=== PATIENT | male | born 1935 | race Caucasian/White ===

== ENCOUNTER 2019-09-14 15:23 | Emergency (ER) | payer MEDICARE, SELFPAY ==
[2019-09-14 15:24] VITALS: BP 148/63; PULSE 100; RESP 18; TEMP 36.4; O2SAT 100
[2019-09-14 15:35] VITALS: BP 135/89; PULSE 98; RESP 16; TEMP 36.7; O2SAT 100
--- NOTE | 2019-09-14 15:59 | ED.WOUNDLAC ---
HPI - Wound/Laceration General Chief Complaint: Urogenital-Male Stated Complaint: Punctured scrotum Time Seen by Provider: 09/14/19 15:30 Source: patient Mode of arrival: ambulatory Limitations: no limitations History of Present Illness HPI narrative: Patient presents with chief complaint of swelling to his scrotum that he noticed while cleaning himself prior to arrival. Patient states that he takes Xarelto so he became concerned when he saw the bleeding. Patient states that he cleaned the area and applied cotton and was able to stop the bleeding with minimal pressure. Patient does not have any active bleeding at this time. Patient denies any other symptoms or concerns. Related Data Allergies Allergy/AdvReac Type Severity Reaction Status Date / Time No Known Allergies Allergy Unverified 02/05/18 09:56 Review of Systems Review of Systems: Narrative: CONSTITUTIONAL: Denies fever, chills, or sweats. EYES: Denies visual changes, redness, or discharge. ENT: Denies rhinorrhea, congestion, sore throat, or otalgia. CARDIOVASCULAR: Denies chest pain, palpitations, or edema. RESPIRATORY: Denies cough or dyspnea. GASTROINTESTINAL: Denies abdominal pain, nausea, vomiting, or diarrhea. GENITOURINARY: Denies dysuria or hematuria. SKIN: Reports area of bleeding denies rash or itching. MUSCULOSKELETAL: Denies back pain, joint pain, or myalgia. NEUROLOGIC: Denies headache, numbness, dizziness, or weakness. PSYCHIATRIC: Denies anxiety or depression. Exam Narrative: Exam Narrative: GENERAL: Well-appearing, well-nourished, and in no acute distress. HEAD: Normocephalic, atraumatic. EYES: PERRLA and EOMI. ENT: Nares clear, no rhinorrhea or epistaxis. Mucous membranes moist. Oropharynx without tonsillar hypertrophy exudate or other lesions. Bilateral TMs pearly whatley nonbulging NECK: Supple. No adenopathy or masses. CHEST: Clear to auscultation. No respiratory distress. No wheezes rales or rhonchi HEART: Regular rate and rhythm. Normal peripheral pulses. ABDOMEN: Soft, nontender, nondistended, normal active bowel sounds. EXTREMITIES: Normal range of motion. No edema. SKIN: There is follicle with scab noted to anterior aspect of scrotum. No sign of laceration or deep puncture wound. There is no active bleeding to the area at this time. There is no signs of cellulitis or infection. Warm, dry, no rash. NEURO: No focal deficits. Alert and oriented x3. PSYCH: Normal mood and affect. Course Vital Signs Vital signs: Vital Signs Temperature 97.5 F L 09/14/19 15:24 Pulse Rate 100 09/14/19 15:24 Respiratory Rate 18 09/14/19 15:24 Blood Pressure 148/63 H 09/14/19 15:24 Pulse Oximetry 100 09/14/19 15:24 Temperature 98.0 F 09/14/19 15:35 Pulse Rate 98 09/14/19 15:35 Respiratory Rate 16 09/14/19 15:35 Blood Pressure 135/89 09/14/19 15:35 Pulse Oximetry 100 09/14/19 15:35 MDM - Wound/Laceration MDM Narrative Medical decision making narrative: Discussed with the patient that there are no signs of active bleeding. There is a scab over the follicle that was the source of bleeding. Discussed with patient being arsah with the area so that bleeding does not restart. Told the patient to return to the emergency department if he has any profuse bleeding. Denies Differential Diagnosis Differential diagnosis: Likely laceration, abscess, abrasion and avulsion of skin Discharge Plan Discharge Clinical Impression: Superficial injury of scrotum without infection Qualifiers: Encounter type: initial encounter Qualified Code(s): S30.94XA - Unspecified superficial injury of scrotum and testes, initial encounter Patient Disposition: Home, Self-Care Condition: Improved Instructions: Antibiotic Form Additional Instructions: Avoid removing scab off of follicle so that bleeding does not restart. Avoid friction or irritation to the area. Return to emergency department if you have restarted profuse bleeding. Follow-
[2019-09-14 16:21] VITALS: BP 105/58; PULSE 92; RESP 16; O2SAT 99
== END 2019-09-14 16:22 | disposition home or self-care (01) ==
PROVIDERS: Emergency Provider Emergency Medicine; PCP Family Medicine Adolescent Medicine
DX: S30.94XA Unspecified superficial injury of scrotum and testes, initial encounter (principal); X58.XXXA Exposure to other specified factors, initial encounter; Z79.01 Long term (current) use of anticoagulants
CPT/HCPCS: 99281

== ENCOUNTER 2019-09-22 15:16 | Outpatient (CLI) | payer MEDICARE, SELFPAY ==
[2019-09-22 16:14] LABS: Hemoglobin A1C 7.1 % (<5.7)
== END 2019-09-22 15:17 | disposition home or self-care (01) ==
LOC: ANHLAB 15:20
PROVIDERS: PCP Family Medicine Adolescent Medicine; Visit Provider Family Medicine Adolescent Medicine
DX: R73.01 Impaired fasting glucose (principal)
CPT/HCPCS: 36415; 83036

== ENCOUNTER 2020-04-12 15:02 | Outpatient (CLI) | payer MEDICARE, SELFPAY ==
[2020-04-12 15:36] LABS: Alanine Aminotransferase 24 U/L (4-50); Albumin Level 4.1 g/dL (3.5-5.1); Alkaline Phosphatase 76 U/L (38-126); Anion Gap 5 mmol/L (8-16); Aspartate Amino Transferase 28 U/L (17-59); Bilirubin,Total 0.8 mg/dL (0.2-1.3); Blood Urea Nitrogen 13 mg/dL (9-20); Calcium 8.9 mg/dL (8.4-10.2); Carbon Dioxide 27 mmol/L (22-30); Chloride 103 mmol/L (98-107); Cholesterol 110 mg/dL (0-200); Estimated Glomerular Filt Rate > 60; Glucose 126 mg/dL (75-110); HDL Direct 37 mg/dL; Potassium 4.5 mmol/L (3.4-5.0); Sodium 135 mmol/L (137-145); Triglycerides 109 mg/dL (<150)
[2020-04-12 15:40] LABS: Hemoglobin A1C 6.1 % (<5.7)
[2020-04-12 15:47] LABS: LDL Cholesterol Direct 48 mg/dL
== END 2020-04-12 15:03 | disposition home or self-care (01) ==
PROVIDERS: PCP Family Medicine Adolescent Medicine; Visit Provider Family Medicine Adolescent Medicine
DX: E03.9 Hypothyroidism, unspecified (principal); E11.9 Type 2 diabetes mellitus without complications; E78.00 Pure hypercholesterolemia, unspecified
CPT/HCPCS: 36415; 80053; 80061; 83036; 84443

== ENCOUNTER 2020-06-27 15:09 | Outpatient (CLI) | payer MEDICARE, SELFPAY ==
[2020-06-27 16:50] LABS: Prostate Specific Antigen < 0.1 ng/mL (< OR = 4.0)
== END 2020-06-27 15:10 | disposition home or self-care (01) ==
LOC: ANHLAB 15:12
PROVIDERS: PCP Family Medicine Adolescent Medicine; Visit Provider Urology
DX: Z85.46 Personal history of malignant neoplasm of prostate (principal)
CPT/HCPCS: 36415; 84153

== ENCOUNTER 2020-10-30 08:13 | Outpatient (CLI) | payer MEDICARE, SELFPAY ==
--- NOTE | ~2020-10-30 | US_ITS ---
EXAMINATION: US art doppler w press LE BI DATE: 10/30/2020 09:23 INDICATION: Claudication TECHNIQUE: Segmental pressures and plethysmographic and Doppler waveforms of the brachial and lower e xtremity arteries were obtained. COMPARISON: None. FINDINGS: Right and left brachial artery pressures of 130 mm Hg and 132 mm Hg, respectively, are concordant (no rmal difference <= 30 mmHg). The right high thigh pressure index is 1.35 (normal > 1.2). The left hig h pressure index was unable to be obtained due to inability to occlude vessels in the left thigh. The right ankle-brachial index (KIERA) is 0.73 (normal >= 0.9-1). The right great toe-brachial index (T BI) is 0.49 (normal >= 0.6-0.8). The right lower extremity segmental pressure gradients are increased between the right jqmoj-coc-ryez popliteal artery and the right dorsalis pedis and posterior tibial arteries at the ankle. There is also increased pressure gradient between the right dorsalis pedis and posterior tibial arteries and the contralateral left dorsalis pedis and posterior tibial arteries (n ormal gradients <= 20-30 mmHg between adjacent levels on the same leg or the same levels on the two l egs). Arterial waveforms are biphasic with brisk systolic upstrokes throughout. The left KIERA is 1.06. The left TBI is 0.85. The left lower extremity segmental pressure gradients are normal. Arterial waveforms are biphasic with brisk systolic upstrokes throughout. IMPRESSION: 1. Arterial occlusive disease to the right lower limb with moderately decreased right KIERA and TBI and with increased pressure gradient in the right calf. 2. Normal left KIERA and TBI. Reviewed, dictated and finalized at location A.
== END 2020-10-30 08:14 | disposition home or self-care (01) ==
PROVIDERS: PCP Family Medicine Adolescent Medicine; Visit Provider Internal Medicine Cardiovascular Disease
DX: I25.10 Atherosclerotic heart disease of native coronary artery without angina pectoris (principal); I73.9 Peripheral vascular disease, unspecified
CPT/HCPCS: 93923

== ENCOUNTER 2020-11-23 11:48 | Emergency (ER) | payer MEDICARE, SELFPAY ==
[2020-11-23] VITALS (7 sets, daily range): BP systolic 117–134; BP diastolic 41–74; PULSE 77–100; RESP 13–20; TEMP 36.8; O2SAT 97–100
--- NOTE | ~2020-11-23 | XR_ITS ---
EXAMINATION: XR chest 2V EXAM DATE: 11/23/2020 12:24 INDICATION: Heart palpitations and chest tightness. TECHNIQUE: Frontal and lateral projections of the chest obtained and reviewed. Comparison is made to prior examination from 04/19/2017. FINDINGS: No confluent consolidation, pneumothorax or pleural effusion suspected. Sternotomy wires are present without findings to suggest sternal dehiscence. The lungs are hyperinflated which can be seen with chronic obstructive pulmonary disease (a clinical diagnosis of functional impairment), but is not diagnostic of it. Cardiomediastinal silhouette is normal. There is aortic arteriosclerosis. IMPRESSION: 1. No acute cardiopulmonary findings. 2. Chronic hyperinflation. Reviewed, dictated and finalized at location A.
--- NOTE | 2020-11-23 11:56 | ECG_ITS ---
Measurements Intervals [place] Rate: 93 P: 36 CA: 188 QRS: -39 QRSD: 153 T: 118 QT: 388 QTc: 483 Interpretive Statements SINUS RHYTHM POSSIBLE LEFT ATRIAL ENLARGEMENT LEFT AXIS DEVIATION LEFT BUNDLE BRANCH BLOCK ABNORMAL ECG Electronically Signed On 11-23-2020 12:00:16 CDT by Sammy Frank D.O.
[2020-11-23 12:11] LABS: Basophils Percent Auto 0.5 % (0.2-1.2); Eosinophils Absolute Auto 0.1 K/mm3 (0-0.3); Eosinophils Percent Auto 1.3 % (0-4.4); Hematocrit 44.9 % (42.0-52.0); Hemoglobin 14.9 g/dL (14.0-18.0); Immature Granulocyte Absolute 0.02 K/mm3 (0.00-0.031); Immature Granulocyte Percent A 0.2 % (0-0.5); Lymphocytes Absolute Auto 1.27 K/mm3 (0.9-3.2); Lymphocytes Percent Auto 15.1 % (18.3-44.2); Mean Corpuscular HGB Conc 33.2 g/dl (32-36); Mean Corpuscular Volume 87.4 fl (80-100); Mean Platelet Volume 10.3 fl (7.4-10.4); Monocytes Absolute Auto 0.6 K/mm3 (0.1-0.6); Monocytes Percent Auto 6.5 % (2.6-8.5); Neutrophils Absolute Auto 6.4 K/mm3 (1.3-6.7); Neutrophils Percent Auto 76.4 % (45.5-73.1); Platelet Count Result 198 k/mm3 (150-375); Red Blood Count 5.14 M/mm3 (4.6-6.20); Red Cell Distribution Width 13.4 % (11.5-14.5); White Blood Count 8.4 K/mm3 (4.5-10.0)
[2020-11-23 12:20] LABS: Anion Gap 7 mmol/L (8-16); Blood Urea Nitrogen 13 mg/dL (9-20); Calcium 9.1 mg/dL (8.4-10.2); Carbon Dioxide 27 mmol/L (22-30); Chloride 104 mmol/L (98-107); Estimated CRCL calculation 75 ml/min; Estimated Glomerular Filt Rate > 60; Glucose 151 mg/dL (75-110); INR 1.3; Potassium 4.3 mmol/L (3.4-5.0); Sodium 138 mmol/L (137-145)
[2020-11-23 12:32] LABS: Troponin I < 0.012 ng/mL (0.000-0.034)
--- NOTE | 2020-11-23 13:16 | ED.DIZZY ---
HPI - Dizziness General Chief Complaint: Dizziness Stated Complaint: heart palpitations Time Seen by Provider: 11/23/20 13:16 History of Present Illness HPI Narrative: 85 yo male w/ h/o CAD, DM presents to the ED for palpitations. He reports that he was taking his pulse this morning when he noted PVCs and occasional skipped beats. He was concerned because they seemed to be getting more frequent. He says that he had a strange sensation in his chest when they would happene and may have felt slightly light headed for a few seconds. No CP, syncope, SOB. Related Data Home Medications Medication Instructions Recorded Confirmed atorvastatin 11/23/20 ergocalciferol (vitamin D2) 11/23/20 ergocalciferol (vitamin D2) 11/23/20 isosorbide mononitrate mg PO 11/23/20 levothyroxine 11/23/20 metformin mg PO 11/23/20 rivaroxaban [Xarelto] mg 11/23/20 Allergies Allergy/AdvReac Type Severity Reaction Status Date / Time No Known Allergies Allergy Unverified 11/23/20 12:31 Review of Systems Review of Systems: All systems reviewed & are unremarkable except as noted in HPI and below Constitutional: Constitutional: Denies fever(s) and Denies weakness Eyes: Eyes: Reports no additional eye complaints ENT: Reports system reviewed and no additional complaints, except as documented Cardiovascular: Cardiovascular: Reports as per HPI Respiratory: Respiratory: Reports as per HPI Gastrointestinal: Gastrointestinal: Denies nausea Musculoskeletal: Musculoskeletal: Denies back pain Neurologic: Reports as per HPI [facility] Past Medical History Medical History (Updated 12/06/20 @ 10:45 by Oswaldo Hamilton MD) CAD (coronary artery disease) Diabetes mellitus Social History Social History (Updated 12/06/20 @ 10:45 by Oswaldo Hamilton MD) Substance use: never Living arrangements: with family Gender identity (if verbalized by the patient): Male Exam Const: General: healthy appearing, no acute distress and alert Orientation/consciousness: patient oriented x3 HENMT: Head: normal to inspection Neck: Neck: normal visual inspection Chest: Chest palpation & inspection: normal inspection of the chest Resp: Effort & Inspection: normal respiratory effort Auscultation: clear to auscultation bilaterally Cardio: Rate: regular rate Rhythm: regular rhythm GI: Inspection: non-distended Skin: General skin exam: normal color Neuro: General: patient oriented x3, no focal motor deficits and CN's II-XI intact bilaterally Speech: normal speech Gait exam (Neuro): Normal gait present Extrem: General: normal to inspection Course Vital Signs Vital signs: Vital Signs Temperature 36.8 C 11/23/20 11:56 Pulse Rate 91 11/23/20 11:56 Respiratory Rate 20 11/23/20 11:56 Blood Pressure 117/61 11/23/20 11:56 Pulse Oximetry 99 11/23/20 11:56 Temperature 36.8 C 11/23/20 11:56 Pulse Rate 77 11/23/20 14:20 Respiratory Rate 16 11/23/20 14:20 Blood Pressure 134/74 11/23/20 14:20 Pulse Oximetry 97 11/23/20 14:20 MDM - Dizziness MDM Narrative Medical decision making narrative: Occasional PVCs on telemetry. Case discussed with Dr. Rodriguez. Nothing to do. Patient can follow-up sooner if he is concerned, otherwise he can keep previously scheduled appointment. Medical Records Attestation: I reviewed the patient's medical records. Lab Data Attestation: I reviewed the patient's lab results. Result diagrams: 11/23/20 12:04 11/23/20 12:04 Labs: Lab Results 11/23/20 11/23/20 11/23/20 Range/Units 12:04 12:04 12:04 WBC 8.4 (4.5-10.0) K/mm3 RBC 5.14 (4.6-6.20) M/mm3 Hgb 14.9 (14.0-18.0) g/dL Hct 44.9 (42.0-52.0) % MCV 87.4 (80-100) fl MCH 29.0 (26-34) pg MCHC 33.2 (32-36) g/dl RDW 13.4 (11.5-14.5) % Plt Count 198 (150-375) k/mm3 MPV 10.3 (7.4-10.4) fl Immature Gran % (Auto) 0.2 (0-0.5) % Neut % (Auto
== END 2020-11-23 14:22 | disposition home or self-care (01) ==
PROVIDERS: General Practice; Emergency Provider Emergency Medicine; PCP Family Medicine Adolescent Medicine
DX: I49.3 Ventricular premature depolarization (principal); I25.10 Atherosclerotic heart disease of native coronary artery without angina pectoris; E11.9 Type 2 diabetes mellitus without complications; Z79.01 Long term (current) use of anticoagulants; Z79.84 Long term (current) use of oral hypoglycemic drugs; I44.7 Left bundle-branch block, unspecified; R94.31 Abnormal electrocardiogram [ECG] [EKG]
CPT/HCPCS: 36415; 71046; 80048; 84484; 85025; 85610; 85730; 93005; 99284

== ENCOUNTER 2020-12-19 10:14 | Outpatient (CLI) | payer MEDICARE, SELFPAY ==
--- NOTE | ~2020-12-19 | CT_ITS ---
EXAMINATION: CTA abd aorta runoff DATE: 12/19/2020 11:00 INDICATION: Peripheral arterial disease. Claudication. TECHNIQUE: Computed tomographic angiography (CTA) of the abdominal, pelvis, and both lower extremitie s was performed with 150 mL Omnipaque-350 intravenous contrast. Automated exposure control and iterat peggy reconstruction technique were employed. The dose-length product was 1674.97 mGy-cm. Maximum inten sity projection 3D-reconstructions of the arteries were created by the technologist on a separate wor kstation. COMPARISON: None. FINDINGS: ABDOMINAL AORTA AND ITS BRANCHES: Abdominal aorta is normal in caliber. There is mild stenosis of celiac axis. There is no significant stenosis of superior mesenteric artery or the renal arteries. There is mild stenosis of inferior mese nteric artery. PELVIC VASCULATURE: There is no significant stenosis of the common iliac arteries, external iliac arteries, or right inte rnal iliac artery. There is chronic total occlusion of proximal left internal iliac artery with recon stitution from collaterals. RIGHT LOWER EXTREMITY VASCULATURE: There is mild stenosis of right common femoral artery. There is no significant stenosis of the profun da femoris. There is mild stenosis of right superficial femoral artery. There is moderate stenosis of distal right below-knee popliteal artery. There is total occlusion of right tibioperoneal trunk with reconstitution. There is stenosis right anterior tibial artery with distal total occlusion. There is no significant stenosis of peroneal artery, which contribute collaterals beyond the ankle. There is no significant stenosis of right posterior tibial artery. LEFT LOWER EXTREMITY VASCULATURE: There is no significant stenosis of left common femoral artery, profunda femoral artery, superficial femoral artery, popliteal artery, or tibioperoneal trunk. There is total occlusion of mid anterior ti bial artery with at least segmental distal reconstitution. There is no significant stenosis of perone al artery, which contributes collaterals beyond the ankle. There is total occlusion of mid posterior tibial artery with distal reconstitution. ADDITIONAL FINDINGS: The visualized portions of the lung bases demonstrate a calcified nodule on the right, consistent wit h old granulomatous disease. No pleural effusion. The heart size is normal. No pericardial effusion. Retained epicardial pacer wires are noted. Median sternotomy wires are noted. There is a small slidin g hiatal hernia. The liver and gallbladder are normal. There is a hypodense subcapsular hematoma in t he spleen with maximum thickness of 9 mm, likely subacute or chronic. There are three low-attenuation lesions in the spleen measuring up to 4 mm, likely benign. The pancreas, adrenal glands, and kidneys are normal. There are changes of prostatectomy and pelvic lymph node dissection. There are no dilate d loops of bowel. The appendix is normal. There are no pathologically enlarged lymph nodes. There is no free intraperitoneal fluid. There is prominent fat in right inguinal canal that may be a hernia. T here are bilateral hydroceles. There is moderate lumbar spondylosis. IMPRESSION: 1. Moderate stenosis of distal right below-knee popliteal artery. 2. Total occlusion of right tibioperoneal trunk with reconstitution. 3. Distal total occlusion of right anterior tibial artery. Two-vessel runoff on the right. 4. Total occlusion of the mid left anterior tibial artery. Total occlusion of mid left posterior tibi al artery with distal reconstitution. No significant stenosis of left peroneal artery. 5. Subcapsular hematoma of the spleen, likely subacute or chronic. Reviewed, dictated and finalized at location B. IMPRESSION: 1. Ashley
== END 2020-12-19 10:15 | disposition home or self-care (01) ==
PROVIDERS: PCP Family Medicine Adolescent Medicine; Visit Provider Internal Medicine Cardiovascular Disease
DX: I73.9 Peripheral vascular disease, unspecified (principal); R68.89 Other general symptoms and signs; I70.92 Chronic total occlusion of artery of the extremities; D73.5 Infarction of spleen
CPT/HCPCS: 75635; Q9967

== ENCOUNTER 2021-01-01 10:04 | Outpatient (CLI) | payer MEDICARE, SELFPAY ==
[2021-01-01 10:46] LABS: Alanine Aminotransferase 20 U/L (4-50); Albumin Level 4.2 g/dL (3.5-5.1); Alkaline Phosphatase 81 U/L (38-126); Anion Gap 5 mmol/L (8-16); Aspartate Amino Transferase 28 U/L (17-59); Bilirubin,Total 0.9 mg/dL (0.2-1.3); Blood Urea Nitrogen 11 mg/dL (9-20); Calcium 9.3 mg/dL (8.4-10.2); Carbon Dioxide 30 mmol/L (22-30); Chloride 104 mmol/L (98-107); Estimated Glomerular Filt Rate > 60; Glucose 142 mg/dL (75-110); Potassium 4.8 mmol/L (3.4-5.0); Sodium 139 mmol/L (137-145)
[2021-01-01 10:52] LABS: Hemoglobin A1C 6.4 % (<5.7)
== END 2021-01-01 10:05 | disposition home or self-care (01) ==
PROVIDERS: PCP Family Medicine Adolescent Medicine; Visit Provider Family Medicine Adolescent Medicine
DX: R63.4 Abnormal weight loss (principal); E11.9 Type 2 diabetes mellitus without complications
CPT/HCPCS: 36415; 80053; 83036; 84443

== ENCOUNTER 2021-01-19 13:31 | Emergency (ER) | payer MEDICARE, SELFPAY ==
[2021-01-19] VITALS (7 sets, daily range): BP systolic 108–134; BP diastolic 64–75; PULSE 68–110; RESP 18–20; TEMP 36.3; O2SAT 97–99
[2021-01-19 13:47] LABS: Basophils Percent Auto 0.3 % (0.2-1.2); Eosinophils Absolute Auto 0.1 K/mm3 (0-0.3); Eosinophils Percent Auto 0.6 % (0-4.4); Hematocrit 47.1 % (42.0-52.0); Hemoglobin 15.6 g/dL (14.0-18.0); Immature Granulocyte Absolute 0.02 K/mm3 (0.00-0.031); Immature Granulocyte Percent A 0.2 % (0-0.5); Lymphocytes Absolute Auto 1.28 K/mm3 (0.9-3.2); Lymphocytes Percent Auto 14.8 % (18.3-44.2); Mean Corpuscular HGB Conc 33.1 g/dl (32-36); Mean Corpuscular Hemoglobin 28.9 pg (26-34); Mean Corpuscular Volume 87.4 fl (80-100); Mean Platelet Volume 10.1 fl (7.4-10.4); Monocytes Absolute Auto 0.5 K/mm3 (0.1-0.6); Monocytes Percent Auto 6.1 % (2.6-8.5); Neutrophils Absolute Auto 6.7 K/mm3 (1.3-6.7); Platelet Count Result 214 k/mm3 (150-375); Red Blood Count 5.39 M/mm3 (4.6-6.20); Red Cell Distribution Width 13.5 % (11.5-14.5); White Blood Count 8.7 K/mm3 (4.5-10.0)
[2021-01-19 13:57] LABS: Alanine Aminotransferase 21 U/L (4-50); Albumin Level 4.2 g/dL (3.5-5.1); Alkaline Phosphatase 77 U/L (38-126); Anion Gap 11 mmol/L (8-16); Aspartate Amino Transferase 30 U/L (17-59); Bilirubin,Total 1.1 mg/dL (0.2-1.3); Blood Urea Nitrogen 15 mg/dL (9-20); Calcium 9.7 mg/dL (8.4-10.2); Carbon Dioxide 26 mmol/L (22-30); Chloride 101 mmol/L (98-107); Estimated CRCL calculation 58 ml/min; Estimated Glomerular Filt Rate > 60; Glucose 200 mg/dL (75-110); Lipase 49 U/L (23-300); Potassium 4.6 mmol/L (3.4-5.0); Sodium 138 mmol/L (137-145)
[2021-01-19 15:04] LABS: Add Urine Microscopic? YES; Appearance Urine Clear (Clear); Bacteria Urine Trace /hpf; Bilirubin Urine Negative (Negative); Blood Urine Negative (Negative); Color Urine Yellow (Yellow); Glucose Urine UA Negative (Negative); Ketones Urine Negative (Negative); Leukocyte Esterase Ur Negative LEU/UL (Negative); Nitrate Urine Negative (Negative); Protein Urine Negative (Negative); RBC Urine 0-2 /hpf (0-2); Specific Grav Ur 1.016 (1.001-1.035); Squamous Epithelial Cell Urine Rare /hpf (Few); WBC Urine 0-3 /hpf
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
[2021-01-19] MEDS: PROMETHAZINE HCL 25 MG/ML AMPUL 12.5 MG IV PUSH (18:16)
[2021-01-19] MEDS: SODIUM CHLORIDE 0.9% IV 500 ML 999 ML IV CONT (18:17)
== END 2021-01-19 19:21 | disposition home or self-care (01) ==
PROVIDERS: Emergency Provider Emergency Medicine; PCP Family Medicine Adolescent Medicine
DX: K52.9 Noninfective gastroenteritis and colitis, unspecified (principal); I25.10 Atherosclerotic heart disease of native coronary artery without angina pectoris; E11.9 Type 2 diabetes mellitus without complications; Z85.46 Personal history of malignant neoplasm of prostate; E78.00 Pure hypercholesterolemia, unspecified; I10 Essential (primary) hypertension; E03.9 Hypothyroidism, unspecified; Z86.73 Personal history of transient ischemic attack (TIA), and cerebral infarction without residual deficits; Z79.84 Long term (current) use of oral hypoglycemic drugs; Z79.01 Long term (current) use of anticoagulants; Z90.79 Acquired absence of other genital organ(s); Z95.1 Presence of aortocoronary bypass graft
CPT/HCPCS: 36415; 80053; 81001; 83690; 85025; 96374; 99284; J2550; J7040

== ENCOUNTER 2021-02-22 01:32 | Day surgery (SDC) | payer MEDICARE, SELFPAY ==
[2021-02-08 13:48] VITALS: BMI 26.4
[2021-02-22 09:31] VITALS: BP 151/74; PULSE 88; RESP 18; TEMP 36; O2SAT 99; BMI 27.4
[2021-02-22 09:31] LABS: Glucose Point of Care 139 mg/dl (65-105)
--- NOTE | 2021-02-22 09:32 | WPDANESEPPF ---
Anes - Initial Pre Proc Eval Procedure: Operation Date: 02/22/21 10:30 Proposed Procedures p Esophagogastroduodenoscopy - Lucius Graham MD Date/Time: 02/22/21 09:32 Surgeon: Lucius Graham MD Pre Op Diagnosis: nausea/vomiting/weightloss Patient Data Age: 85 Gender: M Height: 1.85 m Weight: 94.4 kg Last Vital Signs Temp 36.0 C L 02/22/21 09:31 Pulse 88 02/22/21 09:31 Resp 18 02/22/21 09:31 BP 151/74 H 02/22/21 09:31 Pulse Ox 99 02/22/21 09:31 Allergies Allergy/AdvReac Type Severity Reaction Status Date / Time No Known Allergies Allergy Verified 02/22/21 09:22 Home Medications Medication Instructions Recorded Confirmed Type atorvastatin 20 mg PO DAILY 11/23/20 02/08/21 History ergocalciferol (vitamin D2) 1,000 mcg PO DAILY 11/23/20 02/08/21 History isosorbide mononitrate 30 mg PO DAILY 11/23/20 02/08/21 History levothyroxine 100 mcg PO DAILY 11/23/20 02/08/21 History metformin 500 mg PO DAILY 11/23/20 02/08/21 History rivaroxaban [Xarelto] 20 mg PO DAILY 11/23/20 02/22/21 History Laboratory Tests 02/22/21 09:29 POC Capillary Glucose 139 mg/dl H mg/dl (65-105) Patient hx anesthesia problems: none Family hx anesthesia problems: none PMFSH Past Medical History Medical History CAD (coronary artery disease) Diabetes mellitus History of left heart catheterization History of prostate cancer Hypercholesterolemia Hypertension Hypothyroidism Overweight (BMI 25.0-29.9) TIA (transient ischemic attack) Surgical History Surgical History H/O prostatectomy History of tonsillectomy Hx of CABG Social History Social History Smoking packs per day: 3 Smoking cigarettes per day: 60.0 Years smoked: 37 Smoking pack-years: 111.00 Smoking status: Former smoker Tobacco type: cigarettes Alcohol intake: former Substance use: never Living arrangements: alone Gender identity (if verbalized by the patient): Male Spiritual care concerns: No Anes - Eval Final PreProcedure Day of Procedure 02/22/21 09:32 Patient weight: overweight Heart: regular rate and rhythm Lungs: decreased breath sounds Airway: Mallampati scale class II Neurological: alert and oriented Last oral intake: >/= 8 hours ASA classification: III Emergent: no Anesthetic plan: proceed Anesthesia type and monitoring: general GIVS and standard monitoring Informed Consent: The patient's anesthetic plan and its attendant risks and benefits were discussed with the patient/family/POA. Questions were solicited and answers provided to the satisfaction of the patient/family/POA.
[2021-02-22] MEDS: LACTATED RINGERS 1,000 ML 150 ML IV CONT (09:38)
--- NOTE | 2021-02-22 09:50 | WPDGICN ---
Assessment and Plan Assessment and plan (1) Nausea vomiting and diarrhea: Code(s): R11.2 - Nausea with vomiting, unspecified; R19.7 - Diarrhea, unspecified Status: Acute Assessment and Plan: Patient with protracted episode of nausea vomiting diarrhea. Suspect this represents gastroenteritis. An EGD will be performed to exclude organic disease. (2) Gastroenteritis: Code(s): K52.9 - Noninfective gastroenteritis and colitis, unspecified Status: Acute Assessment and Plan: Patient appears to have recently had episode of gastroenteritis. Etiology is somewhat unclear but likely related to infectious sources. Symptoms have now resolved. An EGD is requested to exclude organic disease. This will be performed further recommendations subsequently. GI Consult Note Consult date/time: 02/22/21 09:50 HPI: Mathew Pleitez is a 85 year old male Presents for EGD. Patient reports episode of nausea vomiting in November after having had a CT scan. This improved promptly on being prescribed pantoprazole. Patient did well but had recurrent nausea vomiting diarrhea after eating pulled pork at a local restaurant. Other family members were not ill. Patient states that this nausea vomiting diarrhea lasted for 2-3 weeks. And has now resolved. He was given supportive therapy. He reports having a colonoscopy 2-3 years ago that was unremarkable. He presents today for EGD. Patient denies a fever. He has had no bleeding or weight loss per Review of Systems Review of Systems: All systems reviewed & are unremarkable except as noted in HPI and below PMFSH Past Medical History Medical History CAD (coronary artery disease) Diabetes mellitus History of left heart catheterization History of prostate cancer Hypercholesterolemia Hypertension Hypothyroidism Overweight (BMI 25.0-29.9) TIA (transient ischemic attack) Surgical History Surgical History H/O prostatectomy History of tonsillectomy Hx of CABG Social History Social History Smoking packs per day: 3 Smoking cigarettes per day: 60.0 Years smoked: 37 Smoking pack-years: 111.00 Smoking status: Former smoker Tobacco type: cigarettes Alcohol intake: former Substance use: never Living arrangements: alone Gender identity (if verbalized by the patient): Male Spiritual care concerns: No Meds Home Medications and Allergies Home Medications Medication Instructions Recorded Confirmed Type atorvastatin 20 mg PO DAILY 11/23/20 02/08/21 History ergocalciferol (vitamin D2) 1,000 mcg PO DAILY 11/23/20 02/08/21 History isosorbide mononitrate 30 mg PO DAILY 11/23/20 02/08/21 History levothyroxine 100 mcg PO DAILY 11/23/20 02/08/21 History metformin 500 mg PO DAILY 11/23/20 02/08/21 History rivaroxaban [Xarelto] 20 mg PO DAILY 11/23/20 02/22/21 History Allergies Allergy/AdvReac Type Severity Reaction Status Date / Time No Known Allergies Allergy Verified 02/22/21 09:22 Vital Signs Vital Signs - 24 hr 02/22/21 09:31 Temperature 96.8 F L Pulse Rate 88 Respiratory Rate 18 Blood Pressure 151/74 H Pulse Oximetry 99 Exam Narrative: Exam Narrative: physical exam reveals patient be alert. Vital signs stable. HEENT exam is unremarkable. Patient anicteric. Lungs are clear to auscultation and percussion. Heart is without murmur or extra sounds. Abdominal exam bowel sounds are present soft nontender with no hepatosplenomegaly.
[2021-02-22] MEDS: BENZOCAINE (*SP) 60 ML SPRAY CAN (HURRICAINE) 1 SPRAY MUCOUS MEM (10:32)
[2021-02-22 10:48] VITALS: BP 141/89; PULSE 71; RESP 18; O2SAT 99
[2021-02-22 10:51] LABS: Glucose Point of Care 137 mg/dl (65-105)
[2021-02-22 10:58] VITALS: BP 141/89; PULSE 75; RESP 25; O2SAT 99
[2021-02-22 11:08] VITALS: BP 140/84; PULSE 73; RESP 19; O2SAT 99
== END 2021-02-22 11:20 | disposition home or self-care (01) ==
PROVIDERS: PCP Family Medicine Adolescent Medicine; Visit Provider Internal Medicine Gastroenterology
PROC: 0DJ08ZZ Inspection of Upper Intestinal Tract, Via Natural or Artificial Opening Endoscopic (ICD-10-PCS; CPT 43235; principal; 2021-02-22 10:30)
DX: R11.2 Nausea with vomiting, unspecified (principal); R19.7 Diarrhea, unspecified; I25.10 Atherosclerotic heart disease of native coronary artery without angina pectoris; I10 Essential (primary) hypertension; E11.9 Type 2 diabetes mellitus without complications; E78.00 Pure hypercholesterolemia, unspecified; E03.9 Hypothyroidism, unspecified; E66.3 Overweight; F17.210 Nicotine dependence, cigarettes, uncomplicated; Z85.46 Personal history of malignant neoplasm of prostate; Z86.73 Personal history of transient ischemic attack (TIA), and cerebral infarction without residual deficits; Z95.1 Presence of aortocoronary bypass graft
CPT/HCPCS: 43239; 82948; 87081; J2704; J7120

== ENCOUNTER 2021-06-14 12:57 | Outpatient (CLI) | payer MEDICARE, SELFPAY ==
[2021-06-14 13:43] LABS: Hemoglobin A1C 6.3 % (<5.7)
== END 2021-06-14 12:58 | disposition home or self-care (01) ==
LOC: ANHLAB 13:03
PROVIDERS: PCP Family Medicine Adolescent Medicine; Visit Provider Family Medicine Adolescent Medicine
DX: E03.9 Hypothyroidism, unspecified (principal); E11.9 Type 2 diabetes mellitus without complications
CPT/HCPCS: 36415; 83036; 84443

== ENCOUNTER 2021-10-24 13:51 | Outpatient (CLI) | payer MEDICARE, SELFPAY ==
--- NOTE | ~2021-10-24 | XR_ITS ---
XR lumbar spine 2-3V DATE: 10/24/2021 14:22 INDICATION: Midline low back pain after fall 5 weeks ago TECHNIQUE: AP, lateral, coned lateral lumbosacral views COMPARISON: 03/13/2011 lumbar spine FINDINGS: Right there is degenerative spurring of the lower thoracic spine. There is degenerative disc disease throughout the lumbar and lumbosacral spine, mild at L1-2 and L5-S 1, moderate to moderately severe at L2-3, L3-4, L4-5. No fracture or bone destruction. Included lower thoracic and lumbar pedicles are intact. No spondylolisthesis. The sacroiliac joints are intact. There is extensive calcification of the abdominal aorta and iliac arteries; no evidence of abdominal aortic aneurysm. IMPRESSION: Multilevel degenerative disc disease Reviewed, dictated and finalized at location A.
== END 2021-10-24 13:52 | disposition home or self-care (01) ==
LOC: ANHIMG 13:55
PROVIDERS: PCP Family Medicine Adolescent Medicine; Visit Provider Family Medicine Adolescent Medicine
DX: M47.817 Spondylosis without myelopathy or radiculopathy, lumbosacral region (principal)
CPT/HCPCS: 72100

== ENCOUNTER 2022-05-05 14:28 | Outpatient (CLI) | payer MEDICARE, SELFPAY ==
[2022-05-05 14:55] LABS: Alanine Aminotransferase 21 U/L (6-50); Albumin Level 3.9 g/dL (3.5-5.1); Alkaline Phosphatase 72 U/L (38-126); Anion Gap 10 mmol/L (8-16); Aspartate Amino Transferase 25 U/L (17-59); Bilirubin,Total 0.7 mg/dL (0.2-1.3); Blood Urea Nitrogen 18 mg/dL (9-20); Calcium 9.1 mg/dL (8.4-10.2); Carbon Dioxide 28 mmol/L (22-30); Chloride 99 mmol/L (98-107); Cholesterol 110 mg/dL (0-200); Estimated Glomerular Filt Rate > 60; Glucose 157 mg/dL (65-110); HDL Direct 39 mg/dL; Potassium 4.4 mmol/L (3.4-5.0); Sodium 137 mmol/L (137-145); Triglycerides 118 mg/dL (<150)
[2022-05-05 15:06] LABS: LDL Cholesterol Direct 46 mg/dL
[2022-05-05 16:06] LABS: Hemoglobin A1C 6.7 % (<5.7)
== END 2022-05-05 14:29 | disposition home or self-care (01) ==
PROVIDERS: PCP Family Medicine Adolescent Medicine; Visit Provider Family Medicine Adolescent Medicine
DX: E03.9 Hypothyroidism, unspecified (principal); E11.9 Type 2 diabetes mellitus without complications; E78.00 Pure hypercholesterolemia, unspecified; I48.0 Paroxysmal atrial fibrillation
CPT/HCPCS: 36415; 80053; 80061; 83036; 84443

== ENCOUNTER 2022-05-16 09:33 | Outpatient (CLI) | payer MEDICARE, SELFPAY ==
--- NOTE | ~2022-05-16 | MR_ITS ---
EXAMINATION: MR lumbar spine wo con DATE: 05/16/2022 10:58 INDICATION: Left-sided sciatica with some leg weakness. TECHNIQUE: Magnetic resonance imaging (MRI) of the lumbar spine was performed without intravenous con trast. Following localizer sequences a sagittal T2-weighted FSE sequence was obtained. At this point the patient halted the study due to sharp posterior chest pain which began immediately upon the begin deepa of the imaging and which resolved immediately upon completion of the imaging. Review of prior ch est and lumbar spine radiographs demonstrate the presence of retained cardiac pacemaker leads. I went to see the patient after he was removed and the scanner at which point he was asymptomatic and in st able condition. Vital signs were stable with regular cardiac rate and rhythm. Although the presence o f epicardial pacemaker leads is not an absolute contraindication to MR imaging, given that the patien t became symptomatic would avoid subsequent MR imaging was there is a strongly compelling need which cannot be addressed through alternative imaging modalities. COMPARISON: CT AIF dated 12/19/2020 and lumbar spine radiographs dated 10/24/2021 FINDINGS: Evaluation mildly limited by absence of T1-weighted and T2 weighted fat saturated sagittal and T2 jose ghted fat saturated axial imaging. Alignment is normal. Vertebral body heights are normal. Normal ma rrow signal. Moderate disc height loss at L2-L3 and L4-L5, mild disc height loss at remaining levels from T11-T12 through L5-S1. The conus medullaris terminates at L2. There is normal signal in the caud al spinal cord. Paravertebral soft tissues are unremarkable. The following disc levels are specifical ly discussed: T12-L1: Disc is mildly bulging. There is mild bilateral facet joint osteoarthritis. There is no neura l foraminal stenosis. There is mild central canal stenosis. L1-L2: Moderate diffuse disc bulge. There is mild bilateral facet joint osteoarthritis. There is mild bilateral neural foraminal stenosis. There is mild central canal stenosis. L2-L3: Disc is bulging. There is mild to moderate right and moderate left facet joint osteoarthritis. There is mild bilateral neural foraminal stenosis. There is mild central canal stenosis. L3-L4: Disc is bulging. There is moderate right and mild left facet joint osteoarthritis. There is mo derate right and mild to moderate left neural foraminal stenosis. There is mild central canal stenosi s. L4-L5: Disc is bulging. There is moderate bilateral facet joint osteoarthritis. There is moderate sumi ateral neural foraminal stenosis. There is mild central canal stenosis. L5-S1: Disc is bulging. There is moderate left and severe right facet joint osteoarthritis. There is moderate left and mild right neural foraminal stenosis. There is mild central canal stenosis. IMPRESSION: 1. Moderate lumbar spondylosis as detailed above. 2. Study was halted following acquisition of only the single sagittal T2-weighted sequence due to dev elopment of posterior chest pain occurring immediately upon beginning the sequence and resolving at t he end of the imaging sequences suggesting this may be related to the presence of epicardial pacemake r leads. Reviewed, dictated and finalized at location A. IMPRESSION: 1. Moderate lumbar spondylosis as detailed above. 2. Study was halted following acquisition of only the single sagittal T2-weight ed sequence due to development of posterior chest pain occurring immediately up on beginning the sequence and resolving at the end of the imaging sequences sug gesting this may be related to the presence of epicardial pacemaker leads.
== END 2022-05-16 09:34 | disposition home or self-care (01) ==
PROVIDERS: PCP Family Medicine Adolescent Medicine; Visit Provider Family Medicine Adolescent Medicine
DX: M54.32 Sciatica, left side (principal); M47.896 Other spondylosis, lumbar region
CPT/HCPCS: 72148

== ENCOUNTER 2022-07-23 14:03 | Outpatient (CLI) | payer MEDICARE, SELFPAY ==
--- NOTE | ~2022-07-23 | US_ITS ---
EXAMINATION: US art doppler w press LE BI DATE: 07/23/2022 15:11 INDICATION: Peripheral arterial disease. TECHNIQUE: Segmental pressures and plethysmographic and Doppler waveforms of the brachial and lower e xtremity arteries were obtained. COMPARISON: Ultrasound 10/30/2020 FINDINGS: Right and left brachial artery pressures of 97 mm Hg and 96 mm Hg, respectively, are concordant (norm al difference <= 30 mmHg). The right low-thigh pressure index is 1.37. The right ankle-brachial index (KIERA) is 0.93 (normal >= 0 .9-1.0). The right great toe-brachial index (TBI) is 0.49 (normal >= 0.65). The right lower extremity segmental pressure gradients are increased between above-knee and below-knee measurements (normal gr adients <= 20-30 mmHg between adjacent levels on the same leg or the same levels on the two legs). Ar terial Doppler waveforms are biphasic from common femoral artery to the ankle. The left high-thigh pressure index is 1.30. The left KIERA is 1.06. The left TBI is 0.62. Arterial Dopp ler waveforms are biphasic in common femoral artery, triphasic in superficial femoral artery, and bip hasic from popliteal artery to the ankle. IMPRESSION: 1. Mildly decreased right KIERA with interval improvement, decreased right TBI, normal left KIERA, and mi ldly decreased left TBI with interval worsening, consistent with arterial occlusive disease. Note yulissa t ABIs may be overestimated if arteries are calcified. Reviewed, dictated and finalized at location A. 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 Mildly decreased right KIERA with interval improvement, decreased right TBI, n ormal left KIERA, and mildly decreased left TBI with interval worsening, consiste nt with arterial occlusive disease. Note that ABIs may be overestimated if ashely paul are calcified.
== END 2022-07-23 14:04 | disposition home or self-care (01) ==
PROVIDERS: PCP Family Medicine Adolescent Medicine; Visit Provider Internal Medicine Cardiovascular Disease
DX: I73.9 Peripheral vascular disease, unspecified (principal); R60.0 Localized edema; M79.604 Pain in right leg; M79.605 Pain in left leg; R09.89 Other specified symptoms and signs involving the circulatory and respiratory systems
CPT/HCPCS: 93923

== ENCOUNTER 2022-09-08 14:51 | Outpatient (CLI) | payer MEDICARE, SELFPAY ==
[2022-09-08 16:00] LABS: Hematocrit 42.9 % (42.0-52.0); Hemoglobin 14.3 g/dL (14.0-18.0); Mean Corpuscular HGB Conc 33.3 g/dl (32-36); Mean Corpuscular Hemoglobin 28.9 pg (26-34); Mean Corpuscular Volume 86.7 fl (80-100); Mean Platelet Volume 10.7 fl (7.4-10.4); Platelet Count Result 235 k/mm3 (150-375); Red Blood Count 4.95 M/mm3 (4.6-6.20); Red Cell Distribution Width 13.5 % (11.5-14.5); White Blood Count 8.4 K/mm3 (4.5-10.0)
[2022-09-08 16:13] LABS: Alanine Aminotransferase 24 U/L (6-50); Albumin Level 4.1 g/dL (3.5-5.1); Alkaline Phosphatase 98 U/L (38-126); Anion Gap 5 mmol/L (8-16); Aspartate Amino Transferase 27 U/L (17-59); Bilirubin,Total 0.9 mg/dL (0.2-1.3); Blood Urea Nitrogen 17 mg/dL (9-20); Calcium 8.9 mg/dL (8.4-10.2); Carbon Dioxide 31 mmol/L (22-30); Chloride 98 mmol/L (98-107); Estimated Glomerular Filt Rate > 60; Glucose 165 mg/dL (65-110); Potassium 4.4 mmol/L (3.4-5.0); Sodium 134 mmol/L (137-145)
[2022-09-08 20:34] LABS: Hemoglobin A1C 6.7 % (<5.7)
== END 2022-09-08 14:52 | disposition home or self-care (01) ==
PROVIDERS: PCP Family Medicine Adolescent Medicine; Visit Provider Family Medicine Adolescent Medicine
DX: E03.9 Hypothyroidism, unspecified (principal); E11.9 Type 2 diabetes mellitus without complications; E78.00 Pure hypercholesterolemia, unspecified; R19.7 Diarrhea, unspecified; Z79.01 Long term (current) use of anticoagulants
CPT/HCPCS: 36415; 80053; 83036; 84443; 85027

== ENCOUNTER 2022-09-23 12:41 | Observation (INO) | payer MEDICARE, SELFPAY ==
[2022-09-23] VITALS (10 sets, daily range): BP systolic 109–146; BP diastolic 58–92; PULSE 73–127; RESP 16–20; TEMP 36.6–37.9; O2SAT 96–100; BMI 29.5
--- NOTE | ~2022-09-23 | XR_ITS ---
EXAMINATION: XR chest 2V DATE: 09/23/2022 13:19 INDICATION: Palpitations. TECHNIQUE: Frontal and lateral views of the chest were obtained. COMPARISON: Chest 2 views 11/23/2020 FINDINGS: There is mild scarring at the lung apices. No pleural effusion or pneumothorax. The heart s ize is normal. Median sternotomy wires and mediastinal surgical clips are seen, likely from prior cor onary artery bypass grafting. There are retained epicardial pacer wires. IMPRESSION: 1. Stable mild scarring at the lung apices. Reviewed, dictated and finalized at location A. 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
--- NOTE | ~2022-09-23 | NM_ITS ---
EXAMINATION: NM jessica stress w perfusion DATE: 09/24/2022 14:29 INDICATION: Chest pain. TECHNIQUE: Rest images were obtained following intravenous administration of 9.6 mCi Tc99m tetrofosmi n (Myoview). The patient was infused intravenously with Lexiscan (regadenoson). Then, 29.4 mCi Tc99m tetrofosmin (Myoview) was administered intravenously, and stress images were obtained. Data was recon structed into short axis and horizontal and vertical long axis SPECT images. Gated SPECT images were also obtained. COMPARISON: CT abdomen and pelvis 12/19/2020 FINDINGS: There is no definite reversible or fixed perfusion abnormality to suggest ischemia or infar ction. There is no segmental wall motion abnormality. Left ventricular ejection fraction measures > 70%. IMPRESSION: 1. No definite ischemia or infarct. 2. Normal left ventricular ejection fraction measuring > 70%. Reviewed, dictated and finalized at location A. WEIGHER HELPER
[2022-09-23] MEDS: SODIUM CHLORIDE 0.9% IV 1,000 ML 999 ML IV CONT (13:07)
[2022-09-23 13:20] LABS: Basophils Percent Auto 0.3 % (0.2-1.2); Eosinophils Absolute Auto 0.1 K/mm3 (0-0.3); Eosinophils Percent Auto 0.7 % (0-4.4); Hematocrit 43.1 % (42.0-52.0); Hemoglobin 14.3 g/dL (14.0-18.0); Immature Granulocyte Absolute 0.05 K/mm3 (0.00-0.031); Immature Granulocyte Percent A 0.5 % (0-0.5); Lymphocytes Absolute Auto 0.51 K/mm3 (0.9-3.2); Lymphocytes Percent Auto 4.7 % (18.3-44.2); Mean Corpuscular HGB Conc 33.2 g/dl (32-36); Mean Corpuscular Hemoglobin 29.1 pg (26-34); Mean Corpuscular Volume 87.6 fl (80-100); Mean Platelet Volume 10.5 fl (7.4-10.4); Monocytes Absolute Auto 0.7 K/mm3 (0.1-0.6); Monocytes Percent Auto 6.3 % (2.6-8.5); Neutrophils Absolute Auto 9.4 K/mm3 (1.3-6.7); Neutrophils Percent Auto 87.5 % (45.5-73.1); Platelet Count Result 185 k/mm3 (150-375); Red Blood Count 4.92 M/mm3 (4.6-6.20); Red Cell Distribution Width 13.5 % (11.5-14.5); White Blood Count 10.8 K/mm3 (4.5-10.0)
[2022-09-23 13:29] LABS: Alanine Aminotransferase 25 U/L (6-50); Alkaline Phosphatase 116 U/L (38-126); Anion Gap 8 mmol/L (8-16); Aspartate Amino Transferase 26 U/L (17-59); Bilirubin,Total 1.4 mg/dL (0.2-1.3); Blood Urea Nitrogen 10 mg/dL (9-20); Calcium 8.3 mg/dL (8.4-10.2); Carbon Dioxide 27 mmol/L (22-30); Chloride 101 mmol/L (98-107); Estimated CRCL calculation 70 ml/min; Estimated Glomerular Filt Rate > 60; Glucose 185 mg/dL (65-110); Potassium 4.1 mmol/L (3.4-5.0); Sodium 136 mmol/L (137-145)
[2022-09-23 13:31] LABS: INR 1.5; Prothrombin Time 17.6 Seconds (11.1-14.7)
[2022-09-23 13:32] LABS: Partial Thromboplastin Time 32.9 SECONDS (22.3-36.8)
[2022-09-23 13:43] LABS: Troponin I < 0.012 ng/mL (0.000-0.034)
--- NOTE | 2022-09-23 13:57 | ECG_ITS ---
Measurements Intervals [place] Rate: 128 P: 267 NV: 116 QRS: 35 QRSD: 154 T: 134 QT: 333 QTc: 487 Interpretive Statements SUPRAVENTRICULAR TACHYCARDIA LEFT BUNDLE BRANCH BLOCK [120+ ms QRS DURATION, 80+ ms Q/S IN V1/V2, 85+ ms R IN I/aVL/V5/V6] COMPARED TO ECG 11/23/2020 11:57:48 SUPRAVENTRICULAR TACHYCARDIA NOW PRESENT Electronically Signed On 09-23-2022 16:26:37 TOOL HONING MACHINE SET UP OPERATOR by Ashlyn Bazan M.D.
--- NOTE | 2022-09-23 14:11 | ED.GENADULT ---
HPI - General Adult General Chief complaint: Chest Pain Stated complaint: fast heart rate Time Seen by Provider: 09/23/22 12:46 History of Present Illness HPI narrative: Patient is an 87-year-old male who presents ER with palpitations. Reports that this morning he began just feeling like his heart was racing. No chest pain or chest pressure. No dizziness or loss of consciousness. Patient is cared for by Dr. Kapoor. Patient recently was started on ciprofloxacin because he was having diarrhea last week. He has taken 13 tablets. Related Data Home Medications Medication Instructions Recorded Confirmed ergocalciferol (vitamin D2) 1,250 50,000 unit PO [id number] 11/23/20 09/23/22 mcg (50,000 unit) capsule isosorbide mononitrate 30 mg 30 mg PO DAILY 11/23/20 09/23/22 tablet,extended release 24 hr rivaroxaban 20 mg tablet (Xarelto) 20 mg PO DAILY 11/23/20 09/23/22 aspirin 81 mg tablet,delayed 81 mg PO DAILY 10/24/21 09/23/22 release cholecalciferol (vitamin D3) 25 1,000 mcg PO DAILY 10/24/21 09/23/22 mcg (1,000 unit) capsule levothyroxine 100 mcg tablet 100 mcg PO DAILY 09/23/22 09/23/22 pantoprazole 40 mg tablet,delayed 40 mg PO DAILY 09/23/22 09/23/22 release Allergies Allergy/AdvReac Type Severity Reaction Status Date / Time No Known Allergies Allergy Verified 09/08/22 13:51 [facility] Past Medical History Medical History (Updated 09/23/22 @ 21:55 by Ar Gomez MD) CAD (coronary artery disease) Diabetes mellitus History of left heart catheterization History of prostate cancer History of prostate cancer 2000 Hypercholesterolemia Hypothyroidism Normal colonoscopy 01/25 TIA (transient ischemic attack) Surgical History Surgical History (Updated 09/23/22 @ 20:16 by Stephanie Rodriguez NP) H/O prostatectomy 2000 History of cardiac catheterization History of tonsillectomy 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 He had 2 children 1 is still living and one has . 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 Code status full code Smoking packs per day: 3 Smoking cigarettes per day: 60.0 Years smoked: 25 Smoking pack-years: 75.00 Smoking status: Former smoker Tobacco type: cigarettes Smoking end date: 10/09/77 Alcohol intake: current Drinks per week: 14 Substance use: never Substance use type: does not use Lack of Transportation: No Lack of Food: Never True Current Housing: I Have Housing Concerned About Future Housing: No Difficulty Paying Gas/Electric Bills: No Difficulty Paying for Meds: No Currently Unemployed: No Education: Decline to Answer Difficulty w/ Childcare or Family Care: No Living arrangements: alone Occupation/Education: retired Gender identity (if verbalized by the patient): Male Sexual Orientation (if Verbalized by the Patient): Straight or Heterosexual Spiritual care concerns: No Agree to blood products: Yes Exam Narrative: GENERAL: Well-appearing, well-nourished, and in no acute distress. HEAD: Normocephalic, atraumatic. EYES: PERRL and EOMI. CHEST: Clear to auscultation. No respiratory distress. HEART: Tachycardic and regular. Normal peripheral pulses. ABDOMEN: Soft, nontender, nondistended. EXTREMITIES: Normal range of motion. No edema. SKIN: Warm, dry, no rash. NEURO: Alert and oriented x3. PSYCH: Normal mood and affect. Course Course Emergency Course: Patient resting comfortably. Informed of results. Discussed the conversation with cardiology as occurred. Patient started on metoprolol. Additionally he has been informed that he is COVID
[2022-09-23 15:53] LABS: Influenza A QL RT-PCR Negative (Negative); Influenza B QL RT-PCR Negative (Negative); SARS-CoV-2 RNA PCR Positive
--- NOTE | 2022-09-23 16:00 | PM.IMHP ---
H&P: HPI History of Present Illness Date/Time: 09/23/22 16:00 Chief Complaint: Chest pain Narrative: This is an 87-year-old male patient who felt like his heart was racing. He had no chest pain or pressure. The patient did not have a syncopal episode. He did not feel dizzy or lose consciousness. His nuclear power reactor operator is Dr. Kapoor. The patient recently was started on Cipro and has been having diarrhea for the last week. The patient has completed his course of Cipro. No other sick contacts. His white count is 10.8, sodium 136. Glucose 185. First 2 troponins are nonreactive and and the 3rd troponin was mildly elevated at 0.045. The patient was positive for COVID. Patient's EKG was read as supraventricular tachycardia left bundle branch block. The patient was given IV fluids, and Lopressor. Cardiology has been consulted. The patient is being admitted to observation status on the date of service of 09/23/2022. Review of Systems Review of Systems: See HPI All systems reviewed & are unremarkable except as noted in HPI and below Constitutional: Constitutional: Reports as per HPI and Reports no additional constitutional complaints Eyes: Eyes: Reports as per HPI and Reports no additional eye complaints ENT: Reports system reviewed and no additional complaints, except as documented and Reports Normal hearing present Cardiovascular: Cardiovascular: Reports no additional cardiovascular complaints Respiratory: Respiratory: Reports no additional respiratory complaints and Reports no additional respiratory complaints Gastrointestinal: Gastrointestinal: Reports as per HPI and Reports no additional gastrointestinal complaints Musculoskeletal: Musculoskeletal: Reports no additional musculoskeletal complaints Integumentary/Breasts: Skin/Breast: Reports system reviewed and no additional complaints, except as docu and Reports as per HPI Neurologic: Reports system reviewed and no additional complaints, except as documented, Reports as per HPI and Reports Normal hearing present Psychiatric: Psychiatric: Reports no additional psychiatric complaints and Reports as per HPI Endocrine: Endocrine: Reports no additional endocrine complaints Hematologic/Lymphatic: Hematologic/Lymphatic: Reports no additional hematologic/lymphatic complaints Allergic/Immunologic: Allergic/Immunologic: Reports no additional allergic/immunologic complaints [facility] Past Medical History Medical History (Updated 09/23/22 @ 20:22 by Stephanie Rodriguez NP) CAD (coronary artery disease) Diabetes mellitus History of left heart catheterization History of prostate cancer History of prostate cancer 2000 Hypercholesterolemia Hypothyroidism Normal colonoscopy 01/25 TIA (transient ischemic attack) Surgical History Surgical History (Updated 09/23/22 @ 20:16 by Stephanie Rodriguez NP) H/O prostatectomy 2000 History of cardiac catheterization History of tonsillectomy Hx of CABG 2017 4 vessel Family History Family History Father Diabetes mellitus Heart disease Mother Diabetes mellitus Breast cancer Sibling Acute myocardial infarction Heart disease Social History Social History (Updated 09/23/22 @ 20:17 by Stephanie Rodriguez NP) Social History: He is and lives alone. He had 2 children 1 is still living and one has . 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 Code status full code Smoking packs per day: 3 Smoking cigarettes per day: 60.0 Years smoked: 25 Smoking pack-years: 75.00 Smoking status: Former smoker Tobacco type: cigarettes Smoking end date: 10/09/77 Alcohol intake: current Drinks per week: 14 Substance use: never Substance use type: does not use Lack of Transportation: No Lack of Food: Never True Current Housing: I Have Housing Concerned About Future Housing: No Difficulty Paying Gas/Electric Bills: No Difficulty
[2022-09-23 16:29] LABS: Troponin I 0.024 ng/mL (0.000-0.034)
[2022-09-23] MEDS: METOPROLOL TARTRATE 12.5 MG TABLET PO ×2 (17:03→21:35)
[2022-09-23] MEDS: ACETAMINOPHEN 325 MG TABLET 650 MG PO (17:06)
--- NOTE | 2022-09-23 18:13 | ADMGEN ---
This patient, Mathew Pleitez, was admitted to IMU Room 231-01 on 09/23/22 at 1730. Patient/family oriented to hospital policies and general routines including ID bracelet, bed and alarms, visiting hours, pain management, procedures, bathroom and other care routines, personal items, smoking policy, room service/diet, and visiting hours. Information on how to activate the Rapid Response Team has been discussed. Patient/Family are encouraged to report perceived risks to care and to ask questions if they do not understand what they are told or what they should do.
[2022-09-23 20:08] LABS: Troponin I 0.045 ng/mL (0.000-0.034)
[2022-09-23 20:39] LABS: Glucose Point of Care 172 mg/dl (65-105)
[2022-09-23] MEDS: RIVAROXABAN 20 MG TABLET PO (21:36)
[2022-09-24] VITALS (16 sets, daily range): BP systolic 98–153; BP diastolic 46–79; PULSE 63–101; RESP 18–20; TEMP 36.6–37.1; O2SAT 97–99
--- NOTE | 2022-09-24 | ECHO_ITS ---
Patient Info Name: Mathew Pleitez Age: 87 years : 1935 Gender: Male Ht: 72 in Wt: 217 lbs BSA: 2.26 m2 BP: 130 / 66 mmHg Heart Rhythm: Sinus Rhythm Technical Quality: Fair Exam Date: 09/24/2022 4:17 PM Exam Location: [facility] Pulmonary Patient Status: Inpatient Admit Date: 09/23/2022 Staff Ordering Physician: Stephanie Rodriguez NP Event Crew Technician: Letha Patterson RDCS Attending Provider: Elissa Alvarez DO Referring Physician: Michael VARNER; Exam Type: CA echo dop color flow w con Study Info Indications - Diastolic dysfunction Complete two-dimensional, color flow and Doppler transthoracic echocardiogram is performed with contrast to opacify the left ventricle and to improve the deliniation of the left ventricle endocardial borders. Contrast/Agitated Saline Contrast/Ag. Saline: Definity Amount: 3.00 ml Administered By: Letha Patterson RDCS Existing IV Access: Yes IV Access Condition: patent with no signs of infiltration Summary 1. Normal left ventricular size with mild concentric hypertrophy. Good systolic function of all segments with ejection fraction of 65-70%. Diastolic dysfunction is present. 2. Left atrial chamber dimension is mildly enlarged. 3. 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 4. No pulmonary hypertension, estimated pulmonary arterial systolic pressure is 30 mmHg. 5. Moderate aortic valve calcification without stenosis. 6. Normal sinus rhythm. Left Ventricle Left ventricular chamber dimension is normal. Left ventricular systolic function is normal, estimated at 65-70%. There is mildly increased left ventricular wall thickness. Left ventricular septal wall motion is normal. The left ventricular diastolic function is abnormal. Right Ventricle Right ventricular chamber dimension is normal. Right ventricular systolic function is normal. Left Atria Left atrial chamber dimension is mildly enlarged. Right Atria Right atrial chamber dimension is normal. 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 Aortic Valve The aortic valve is trileaflet. There is no aortic valve sclerosis. There is no aortic valve stenosis. There is no aortic valve regurgitation. There is moderate aortic valve calcification. Pulmonic Valve The pulmonic valve is normal. There is no pulmonic valve stenosis. There is no pulmonic regurgitation. Mitral Valve The mitral valve has thickened leaflets. There is no mitral valve stenosis. There is no mitral valve regurgitation. Tricuspid Valve The tricuspid valve leaflets are normal. There is no significant tricuspid valve stenosis. There is trace tricuspid valve regurgitation. No pulmonary hypertension, estimated pulmonary arterial systolic pressure is 30 mmHg. Pericardium/Pleural The pericardium appears normal. There is no pericardial effusion. Inferior Vena Cava Normal inferior vena cava with >50% collapse upon inspiration consistent with Empty right atrial pressure, 10 mmHg. Aorta The aortic root size at the sinus of Valsalva is normal. The prox ascending aorta size is normal. Left Ventricular Outflow Tract Name Value Normal LVOT 2D --
[2022-09-24] MEDS: ACETAMINOPHEN 325 MG TABLET 650 MG PO ×2 (00:06→20:38)
[2022-09-24 00:43] LABS: Toxigenic C. Diff NEGATIVE (NEGATIVE)
[2022-09-24 05:08] LABS: Basophils Percent Auto 0.3 % (0.2-1.2); Eosinophils Percent Auto 0.6 % (0-4.4); Hematocrit 38.8 % (42.0-52.0); Hemoglobin 13.1 g/dL (14.0-18.0); Immature Granulocyte Absolute 0.02 K/mm3 (0.00-0.031); Immature Granulocyte Percent A 0.3 % (0-0.5); Lymphocytes Absolute Auto 1.03 K/mm3 (0.9-3.2); Lymphocytes Percent Auto 14.5 % (18.3-44.2); Mean Corpuscular HGB Conc 33.8 g/dl (32-36); Mean Corpuscular Hemoglobin 28.7 pg (26-34); Mean Corpuscular Volume 84.9 fl (80-100); Mean Platelet Volume 9.9 fl (7.4-10.4); Monocytes Absolute Auto 0.8 K/mm3 (0.1-0.6); Monocytes Percent Auto 10.9 % (2.6-8.5); Neutrophils Absolute Auto 5.2 K/mm3 (1.3-6.7); Neutrophils Percent Auto 73.4 % (45.5-73.1); Platelet Count Result 169 k/mm3 (150-375); Red Blood Count 4.57 M/mm3 (4.6-6.20); Red Cell Distribution Width 13.6 % (11.5-14.5); White Blood Count 7.1 K/mm3 (4.5-10.0)
[2022-09-24 05:21] LABS: Hemoglobin A1C 7.1 % (<5.7)
[2022-09-24 05:36] LABS: Alanine Aminotransferase 22 U/L (6-50); Albumin Level 3.5 g/dL (3.5-5.1); Alkaline Phosphatase 89 U/L (38-126); Anion Gap 5 mmol/L (8-16); Aspartate Amino Transferase 30 U/L (17-59); Bilirubin,Total 0.9 mg/dL (0.2-1.3); Blood Urea Nitrogen 12 mg/dL (9-20); Calcium 8.1 mg/dL (8.4-10.2); Carbon Dioxide 28 mmol/L (22-30); Chloride 104 mmol/L (98-107); Estimated CRCL calculation 62 ml/min; Estimated Glomerular Filt Rate > 60; Glucose 141 mg/dL (65-110); Lactic Acid Reflex 0.9 mmol/L (0.7-2.0); Lipase 27 U/L (23-300); Magnesium 2.1 mg/dL (1.6-2.3); Potassium 3.8 mmol/L (3.4-5.0); Sodium 137 mmol/L (137-145)
[2022-09-24] MEDS: LEVOTHYROXINE SODIUM 100 MCG TABLET PO (06:05)
[2022-09-24 06:36] LABS: Thyroid Stimulating Hormone Reflex 0.816 uIU/mL (0.465-4.68)
--- NOTE | 2022-09-24 08:00 | EST_ITS ---
Patient Info Name: Mathew Pleitez Age: 87 years : 1935 Gender: Male Ht: 72 in Wt: 217 lbs BSA: 2.26 m2 HR: 79 bpm BP: 156 / 76 mmHg Heart Rhythm: Sinus Rhythm Exam Date: 09/24/2022 12:49 PM Exam Location: [facility] Stress Patient Status: Outpatient Admit Date: 09/23/2022 Staff Ordering Physician: Stephanie Rodriguez NP Attending Provider: Elissa Alvarez DO Exercise Technologist: Nikki Montenegro CT Exercise Physician: Ofe Gray MD Exam Type: CA stress jessica w NM Study Info Indications R07.9 - Chest pain, unspecified A regadenoson stress test was performed. Summary 1. NSR with LBBB and first degree AVB. 2. No abnormal ST-T wave changes with lexiscan. 3. Nuclear test results to follow. Protocol: Lexiscan Stress ECG Details Stage: REST Duration (min): 0 min : 59 sec HR (bpm): 79 SBP (mmHg): 156 DBP (mmHg): 75 Stage: REST Duration (min): 8 min : 51 sec HR (bpm): 80 SBP (mmHg): 156 DBP (mmHg): 75 Stage: STAGE 1 Duration (min): 1 min : 0 sec HR (bpm): 91 SBP (mmHg): 147 DBP (mmHg): 70 Stage: RECOVERY Duration (min): 1 min : 0 sec HR (bpm): 99 SBP (mmHg): 147 DBP (mmHg): 70 Stage: RECOVERY Duration (min): 2 min : 0 sec HR (bpm): 95 SBP (mmHg): 147 DBP (mmHg): 70 Stage: RECOVERY Duration (min): 3 min : 0 sec HR (bpm): 96 SBP (mmHg): 136 DBP (mmHg): 67 Stage: RECOVERY Duration (min): 3 min : 18 sec HR (bpm): 98 SBP (mmHg): 136 DBP (mmHg): 67 Rest HR: 80 bpm Peak HR: 101 bpm Rest Sys BP: 156 mmHg Peak Sys BP: 147 mmHg Max Pred HR: 133 bpm % Max Pred HR: 76 % Target HR: 113 bpm Max RPP: 14,847 bpm*mmHg BP Response: Normal blood pressure response Termination Reason: Completed protocol Cardiac Symptoms: None Total Time: 1 min : 0 sec Rest Bella BP: 75 mmHg Peak Bella BP: 70 mmHg Total Dose: 0.4 mg Resting ECG Left bundle branch block. Normal sinus rhythm. First degree A-V Block. Stress ECG No abnormal ST/T wave changes with exercise. Report Signatures
[2022-09-24 08:17] LABS: Glucose Point of Care 166 mg/dl (65-105)
[2022-09-24] MEDS: ISOSORBIDE MONONITRATE 30 MG TAB.ER.24H PO (09:12)
[2022-09-24] MEDS: PROMETHAZINE HCL 25 MG/ML AMPUL 12.5 MG IV PUSH (09:12)
[2022-09-24] MEDS: METOPROLOL TARTRATE 12.5 MG TABLET PO ×2 (09:12→20:38)
[2022-09-24] MEDS: ATORVASTATIN 20 MG TABLET PO (09:13)
[2022-09-24] MEDS: CHOLECALCIFEROL 1,000 UNITS TABLET 1000 UNITS PO (09:13)
[2022-09-24] MEDS: ASPIRIN 81 MG ENTERIC TABLET PO (09:13)
[2022-09-24] MEDS: PANTOPRAZOLE 40 MG TABLET PO (09:13)
--- NOTE | 2022-09-24 09:51 | PM.IMCN ---
Assessment and Plan Assessment and plan (1) Chest pain: Code(s): R07.9 - Chest pain, unspecified Status: Acute Assessment and Plan: -cardiology has been consulted -the 3rd troponin is mildly elevated. The 3rd troponin is 0.045. -the patient is on an aspirin at home will continue with that -the patient was started on metoprolol. However he is stating that he does not want to stay on metoprolol and he does not like it but he will agree to a short period of metoprolol to get his heart rate down. Continue with atorvastatin. Lexiscan: Mild fixed inferior defect, probably artifact, no ischemia, EF 67% Continue with isosorbide Chest x-ray1. Stable mild scarring at the lung apices Chest pain may be from the rapid heart rate (2) Hypercholesterolemia: Code(s): E78.00 - Pure hypercholesterolemia, unspecified Status: Acute Assessment and Plan: Continue with atorvastatin (3) Diarrhea: Code(s): R19.7 - Diarrhea, unspecified Status: Acute Assessment and Plan: -the patient had been on Cipro for approximately 1 week and now has diarrhea. -stools have been sent for cultures and C diff. May consider p.o. Flagyl (4) Diastolic dysfunction: Onset Date: 04/2022 Code(s): I51.89 - Other ill-defined heart diseases Status: Acute Assessment and Plan: No recent echo for comparison. -an echo has been ordered. (5) Type 2 diabetes mellitus without complications: Code(s): E11.9 - Type 2 diabetes mellitus without complications Status: Acute Assessment and Plan: I am holding metformin in the event that the patient will need to go for cardiac catheterization. -Accu-Cheks AC and HS with sliding scale insulin and hypoglycemic protocol. -check A1c. (6) Hypothyroidism, unspecified: Code(s): E03.9 - Hypothyroidism, unspecified Status: Acute Assessment and Plan: Check thyroid levels -continue with levothyroxine (7) Paroxysmal atrial fibrillation: Code(s): I48.0 - Paroxysmal atrial fibrillation Status: Acute Assessment and Plan: -patient's EKG was read as supraventricular tachycardia VS afib RVA -the patient is on Xarelto. -the patient was started on metoprolol -cleaning and washing equipment operator been consulted.C/W metorolol -his pulse is now in the 80s and 70s. Blood pressure is soft at 115/76. (8) COVID: Code(s): U07.1 - COVID-19 Status: Acute Assessment and Plan: -supportive care. The patient is on room air. -the patient was placed on droplet and contact isolation. -the patient stated he is fully vaccinated. HPI Data of Consult Consult date: 09/24/22 Requesting Physician: Elissa Alvarez DO Primary Care Provider: Aryan Mendosa MD Consult Narrative Narrative: Mathew Pleitez is a 87 year old male Review of Systems Review of Systems: All systems reviewed & are unremarkable except as noted in HPI and below Constitutional: Constitutional: Reports as per HPI and Reports no additional constitutional complaints Eyes: Eyes: Reports as per HPI and Reports no additional eye complaints ENT: Reports system reviewed and no additional complaints, except as documented and Reports Normal hearing present Cardiovascular: Cardiovascular: Reports no additional cardiovascular complaints Respiratory: Respiratory: Reports no additional respiratory complaints and Reports no additional respiratory complaints Gastrointestinal: Gastrointestinal: Reports as per HPI and Reports no additional gastrointestinal complaints Musculoskeletal: Musculoskeletal: Reports no additional musculoskeletal complaints Integumentary/Breasts: Skin/Breast: Reports system reviewed and no additional complaints, except as docu and Reports as per HPI Neurologic: Reports system reviewed and no additional complaints, except as documented, Reports as per HPI and Reports Normal hearing present Psychiatric: Psychiatric: Reports no a
--- NOTE | 2022-09-24 10:11 | PM.CNCAR ---
Assessment and Plan Assessment and plan (1) Junctional tachycardia: Code(s): I47.1 - Supraventricular tachycardia Status: Acute Assessment and Plan: Patient had some type of tachyarrhythmia prior to admission and on admission his EKG shows an SVT or junctional tachycardia rate 120. No recurrence since about 5:00 p.m. yesterday. He has had a brief episode of junctional bradycardia heart rate in the 40s since admission, and has been known to have this in the past. Though he has a history of SVT and PAF, he has been asymptomatic with no AV chacha blocking agents as an OPT.. --I suspect his arrhythmia has flared up because he has been ill for a while and agree that short-term metoprolol use is reasonable. 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 --continue atorvastatin, aspirin, and isosorbide (3) Elevated troponin: Code(s): R77.8 - Other specified abnormalities of plasma proteins Status: Acute Assessment and Plan: Very small bump in troponins, likely due to physiologic stress of tachycardia. No chest pain. -- Lexiscan and echo pending (4) History of bradycardia: Code(s): Z87.898 - Personal history of other specified conditions Status: Acute Assessment and Plan: In history of junctional bradycardia, dizziness when taking amiodarone and possibly metoprolol in the past. --will see if the patient can tolerate this low-dose metoprolol. (5) COVID: Code(s): U07.1 - COVID-19 Status: Acute Assessment and Plan: COVID positive, apparently asymptomatic (6) Diarrhea: Code(s): R19.7 - Diarrhea, unspecified Status: Acute Assessment and Plan: Unclear if related to COVID or not (7) History of atrial fibrillation: Code(s): Z86.79 - Personal history of other diseases of the circulatory system Status: Acute Assessment and Plan: History of PAF in the past, minimally symptomatic, anticoagulated with Xarelto. History of Present Illness History of Present Illness Consult date/time: 09/24/22 10:11 Reason For Visit: Junctional Tachycardia Narrative: Mathew Crome is an 87-year-old male whom we were asked to see at the request of Dr. Ar Gomez for our advice and opinion regarding his junctional tachycardia, in consultation. The patient is usually followed by Dr. Kapoor for CAD and CABG, history of paroxysmal atrial fibrillation, LBBB, HTN, and hyperlipidemia. Amiodarone was discontinued in 2018. Monitoring 2018 showed junctional escape rhythm rate 40. Symptoms of lightheadedness and dizziness resolved after amiodarone was discontinued. He previously was also on metoprolol. Mr. Romo has been sick for 4 weeks with diarrhea and he was started on Cipro. Yesterday he felt weaker than usual, with racing heartbeats, and a home monitor showed he had fast HB, in 130's, occ higher. There was no chest pain, pressure, dizziness or syncope. On admission he was positive for COVID. Review of Systems Constitutional: Constitutional: Denies fever(s) Eyes: Eyes: Reports no additional eye complaints ENT: Denies epistaxis Cardiovascular: Cardiovascular: Denies chest pain, Denies pedal edema, Denies lightheadedness and Denies dyspnea Respiratory: Respiratory: Denies chest congestion and Denies dyspnea Gastrointestinal: Gastrointestinal: Reports abdominal pain (Occasional right lower quadrant discomfort), Denies hematochezia and Reports diarrhea Musculoskeletal: Musculoskeletal: Denies no additional musculoskeletal complaints (Generalized weakness) Integumentary/Breasts: Skin/Breast: Reports system reviewed and no additional complaints, except as
--- NOTE | 2022-09-24 16:31 | PM.IMPN ---
Progress Note: A&P Assessment and Plan (1) Chest pain: Code(s): R07.9 - Chest pain, unspecified Status: Acute Assessment and Plan: -cardiology has been consulted -the 3rd troponin is mildly elevated. The 3rd troponin is 0.045. -the patient is on an aspirin at home will continue with that -the patient was started on metoprolol. However he is stating that he does not want to stay on metoprolol and he does not like it but he will agree to a short period of metoprolol to get his heart rate down. Continue with atorvastatin. Lexiscan: Mild fixed inferior defect, probably artifact, no ischemia, EF 67% Continue with isosorbide Chest x-ray1. Stable mild scarring at the lung apices Chest pain may be from the rapid heart rate (2) Hypercholesterolemia: Code(s): E78.00 - Pure hypercholesterolemia, unspecified Status: Acute Assessment and Plan: Continue with atorvastatin (3) Diarrhea: Code(s): R19.7 - Diarrhea, unspecified Status: Acute Assessment and Plan: -the patient had been on Cipro for approximately 1 week and now has diarrhea. -stools have been sent for cultures C diff -ve May consider p.o. Flagyl (4) Diastolic dysfunction: Onset Date: 04/2022 Code(s): I51.89 - Other ill-defined heart diseases Status: Acute Assessment and Plan: No recent echo for comparison. -an echo has been ordered. (5) Type 2 diabetes mellitus without complications: Code(s): E11.9 - Type 2 diabetes mellitus without complications Status: Acute Assessment and Plan: I am holding metformin in the event that the patient will need to go for cardiac catheterization. -Accu-Cheks AC and HS with sliding scale insulin and hypoglycemic protocol. -check A1c. (6) Hypothyroidism, unspecified: Code(s): E03.9 - Hypothyroidism, unspecified Status: Acute Assessment and Plan: Check thyroid levels -continue with levothyroxine (7) Paroxysmal atrial fibrillation: Code(s): I48.0 - Paroxysmal atrial fibrillation Status: Acute Assessment and Plan: -patient's EKG was read as supraventricular tachycardia VS afib RVA -the patient is on Xarelto. -the patient was started on metoprolol -broadcast news producer been consulted.C/W metorolol -his pulse is now in the 80s and 70s. Blood pressure is soft at 115/76. (8) COVID: Code(s): U07.1 - COVID-19 Status: Acute Assessment and Plan: -supportive care. The patient is on room air. -the patient was placed on droplet and contact isolation. -the patient stated he is fully vaccinated. Subjective Date/time seen: 09/24/22 16:31 Patient denies chest pain, shortness breast, abdominal pain, nausea vomiting, patient still has diarrhea. No new issue even over the night Review of Systems Review of Systems: All systems reviewed & are unremarkable except as noted in HPI and below Exam Narrative: GENERAL: Pleasant, in no acute distress. Well-nourished. - EYES: EOMI. Anicteric. - HENT: Moist mucous membranes. - LUNGS: Clear to auscultation bilaterally, no wheezing, rhonchi, or rales. - CARDIOVASCULAR: Regular rate and rhythm. No murmur. No JVD. - ABDOMEN: Soft, non-tender and non-distended. No palpable masses. - EXTREMITIES: No edema. Peripheral pulses 2+. Non-tender. - NEUROLOGIC: No focal neurological deficits. CN II-XII grossly intact. - PSYCHIATRIC: Awake, Alert and oriented x 3. Appropriate mood and affect. - SKIN: No rashes or lesions. Warm. - LYMPH: No cervical lymphadenopathy. Objective Data Vital Signs Vital Signs: Vital Signs - 24 hr 09/23/22 17:03 09/23/22 17:25 09/23/22 17:30 Temperature 99.6 F Pulse Rate 108 H 108 H 91 Respiratory Rate 16 16 Blood Pressure 124/88 133/58 L Pulse Oximetry 98 96 Oxygen Delivery 09/23/22 17:30 09/23/22 17:30 09/23/22 18:00 Temperature Pulse Rate 112 H 84 Respiratory Rate Blood Pressure Pulse Oximetry
[2022-09-24] MEDS: PERFLUTREN LIPID MICROSPHERES 1.5 ML VIAL DILUTED TO 10 ML TOTAL VOLUME IV PUSH (16:40)
[2022-09-24 16:53] LABS: Glucose Point of Care 161 mg/dl (65-105)
--- NOTE | 2022-09-24 17:20 | IVDEFINITY ---
Prior to administration of IV Definity the patient was educated on the risks and benefits of the imaging enhancing agent including potential adverse side effects. The patient verbalized understanding. Allergies were verified. No exclusion criteria were identified and at least one of the following inclusion criteria were met: 1) physician request, 2) patient technically difficult to image (per the [place] [employer] guidelines of two or more segments not discernable within the apical view), or 3) questionable left ventricular function. ?
[2022-09-24] MEDS: RIVAROXABAN 20 MG TABLET PO (17:46)
[2022-09-24 17:58] LABS: Troponin I 0.043 ng/mL (0.000-0.034)
[2022-09-24 19:54] LABS: Glucose Point of Care 141 mg/dl (65-105)
[2022-09-25] VITALS (12 sets, daily range): BP systolic 126–168; BP diastolic 60–86; PULSE 56–91; RESP 14–20; TEMP 36.2–36.7; O2SAT 97–99
[2022-09-25] MEDS: LEVOTHYROXINE SODIUM 100 MCG TABLET PO (06:35)
[2022-09-25 08:45] LABS: Glucose Point of Care 170 mg/dl (65-105)
[2022-09-25] MEDS: METOPROLOL TARTRATE 12.5 MG TABLET PO ×2 (09:11→21:19)
[2022-09-25] MEDS: ASPIRIN 81 MG ENTERIC TABLET PO (09:11)
[2022-09-25] MEDS: PANTOPRAZOLE 40 MG TABLET PO (09:11)
[2022-09-25] MEDS: ATORVASTATIN 20 MG TABLET PO (09:11)
[2022-09-25] MEDS: CHOLECALCIFEROL 1,000 UNITS TABLET 1000 UNITS PO (09:11)
[2022-09-25] MEDS: ISOSORBIDE MONONITRATE 30 MG TAB.ER.24H PO (09:11)
[2022-09-25] MEDS: LOPERAMIDE HCL 2 MG CAPSULE 4 MG PO (10:56)
--- NOTE | 2022-09-25 11:12 | PM.PNCARD ---
Progress Note: A&P Assessment and Plan (1) Junctional tachycardia: Code(s): I47.1 - Supraventricular tachycardia Status: Acute Assessment and Plan: Patient had some type of tachyarrhythmia prior to admission and on admission his EKG shows an SVT or junctional tachycardia rate 120. No recurrence since about 5:00 p.m. yesterday. He has had a brief episode of junctional bradycardia heart rate in the 40s since admission, and has been known to have this in the past. Though he has a history of SVT and PAF, he has been asymptomatic with no AV chacha blocking agents as an OPT.. --Continue low dose beta adalberto. --follow-up for any symptomatic bradycardia -- Outpatient laboratory monitor (we will arrange) --Cardiology will sign off (2) Atherosclerotic heart disease of [place] coronary artery without angina pectoris: Code(s): I25.10 - Atherosclerotic heart disease of [place] coronary artery without angina pectoris Status: Acute Assessment and Plan: History of CAD and CABG with no angina. --continue atorvastatin, aspirin, and isosorbide (3) Elevated troponin: Code(s): R77.8 - Other specified abnormalities of plasma proteins Status: Acute Assessment and Plan: Very small bump in troponins, likely due to physiologic stress of tachycardia. No chest pain. -- Lexiscan negative for any ischemia or infarct --Echo showed some diastolic dysfunction, normal LVSF (4) History of bradycardia: Code(s): Z87.898 - Personal history of other specified conditions Status: Acute Assessment and Plan: In history of junctional bradycardia, dizziness when taking amiodarone and possibly metoprolol in the past. --will see if the patient can tolerate this low-dose metoprolol. (5) COVID: Code(s): U07.1 - COVID-19 Status: Acute Assessment and Plan: COVID positive, apparently asymptomatic (6) Diarrhea: Code(s): R19.7 - Diarrhea, unspecified Status: Acute Assessment and Plan: Unclear if related to COVID or not (7) History of atrial fibrillation: Code(s): Z86.79 - Personal history of other diseases of the circulatory system Status: Acute Assessment and Plan: History of PAF in the past, minimally symptomatic, anticoagulated with Xarelto. Subjective Date/time seen: 09/25/22 11:12 Cardiology follow up for tachycardia Feels well today with no complaints. Did have some brief episodes of tachycardia into the 120's but patient was asymptomatic with this. Review of Systems Constitutional: Constitutional: Denies fever(s) Eyes: Eyes: Reports no additional eye complaints ENT: Denies epistaxis Cardiovascular: Cardiovascular: Denies chest pain, Denies pedal edema, Denies lightheadedness and Denies dyspnea Respiratory: Respiratory: Denies chest congestion and Denies dyspnea Gastrointestinal: Gastrointestinal: Reports abdominal pain (Occasional right lower quadrant discomfort), Denies hematochezia and Reports diarrhea Musculoskeletal: Musculoskeletal: Denies no additional musculoskeletal complaints (Generalized weakness) Integumentary/Breasts: Skin/Breast: Reports system reviewed and no additional complaints, except as docu Neurologic: Reports system reviewed and no additional complaints, except as documented, Denies behavioral changes and Denies confusion Psychiatric: Psychiatric: Denies behavioral changes and Denies confusion Exam Const: General: cooperative and comfortable; No confusion Orientation/consciousness: oriented to person, patient oriented x3 and No confusion Other: Thin, looks chronically ill HENMT: Ears: TM's normal bilaterally Other: Wearing a mask Eyes: EOM: EOMs intact bilaterally Neck: Neck: supple and No no JVD Carotids: no bruits Resp: Effort & Inspection: normal respiratory effort Auscultation: clear to auscultation bilaterally Cardio: Rate: regular rate Rhythm: regular rhythm Hear
--- NOTE | 2022-09-25 11:32 | PC.NURSE ---
This patient, Mathew Pleitez, was transferred to [[facility] ] on 09/25/22 at 1110. Personal belongings sent with patient. Report given to [Khushboo ]. Appropriate documentation sent with patient. Attempted to call son to notify. No answer
[2022-09-25 11:40] LABS: Glucose Point of Care 212 mg/dl (65-105)
--- NOTE | 2022-09-25 13:50 | WPDGICN ---
Assessment and Plan Assessment and plan (1) Diarrhea: Code(s): R19.7 - Diarrhea, unspecified Status: Acute Assessment and Plan: this began about 5 weeks ago. He came on suddenly. He does not recall having other symptoms at that time such as fever abdominal pain, vomiting, etcetera. stools for C diff toxin are negative stool for enteric pathogens is negative white blood count is normal I will obtain stools for calprotectin to rule out inflammatory process and also fecal leukocytes to rule out infection. Most likely his diarrhea is secondary to COVID and should be self-limiting. At this point I do not think that he will need invasive studies such as colonoscopy. (2) Elevated troponin: Code(s): R77.8 - Other specified abnormalities of plasma proteins Status: Acute Assessment and Plan: he is followed by Cardiology. He was found have a left bundle branch block with supraventricular tachycardia. He has been placed on metoprolol to control his heart rate. (3) History of atrial fibrillation: Code(s): Z86.79 - Personal history of other diseases of the circulatory system Status: Acute Assessment and Plan: No atrial fibrillation now but he does have a supraventricular tachycardia and left bundle-branch block (4) Junctional tachycardia: Code(s): I47.1 - Supraventricular tachycardia Status: Acute (5) COVID: Code(s): U07.1 - COVID-19 Status: Acute Assessment and Plan: he actually has no symptoms that led him to think that he did have COVID. The only reason he was found to be positive is because he was tested in the emergency room. GI Consult Note Consult date/time: 09/25/22 13:50 HPI: Mathew Pleitez is a 87 year old male was admitted 2 days ago because of racing of his heart. It made him feel somewhat lightheaded. In the emergency room he was found to be positive for COVID. He did not know that he had it and he did not feel sick. His only symptom is that he has had diarrhea for 5 weeks. The diarrhea came on suddenly, overnight. He has had no significant abdominal pain or cramping with that. He has had no fever except once reaching a temp a little under 101. There has been no blood in his stools. He has not been traveling. He took antibiotics last week, Cipro but he was not on antibiotics at the time that his symptoms began. His last colonoscopy was about 4 years ago. He has a history of polyps. His last colonoscopy was clear except he had some hemorrhoids. His appetite is good. He has had no difficulty with eating. He is currently on a diabetic diet. Review of Systems Review of Systems: All systems reviewed & are unremarkable except as noted in HPI and below PMFSH Past Medical History Medical History CAD (coronary artery disease) Diabetes mellitus History of atrial fibrillation History of left heart catheterization History of prostate cancer History of prostate cancer 2000 Hypercholesterolemia Hypothyroidism Normal colonoscopy 01/25 TIA (transient ischemic attack) Surgical History Surgical History H/O prostatectomy 2000 History of cardiac catheterization History of tonsillectomy Hx of CABG 2016 4 vessel Family History Family History Father Diabetes mellitus Heart disease Mother Diabetes mellitus Breast cancer Sibling Acute myocardial infarction Heart disease Social History Social History Social History: He is and lives alone. He had 2 children 1 is still living and one has . 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 Code status full code Smoking packs per day: 3 Smoking cigarettes per day: 60.0 Years smoked: 25 Smoking pack-years: 75.0
[2022-09-25 16:43] LABS: Glucose Point of Care 126 mg/dl (65-105)
--- NOTE | 2022-09-25 17:14 | PM.IMPN ---
Progress Note: A&P Assessment and Plan (1) Chest pain: Code(s): R07.9 - Chest pain, unspecified Status: Acute Assessment and Plan: -cardiology has been consulted -the 3rd troponin is mildly elevated. The 3rd troponin is 0.045. -the patient is on an aspirin at home will continue with that -the patient was started on metoprolol. However he is stating that he does not want to stay on metoprolol and he does not like it but he will agree to a short period of metoprolol to get his heart rate down. Continue with atorvastatin. Lexiscan: Mild fixed inferior defect, probably artifact, no ischemia, EF 67% Continue with isosorbide Chest x-ray1. Stable mild scarring at the lung apices Chest pain may be from the rapid heart rate (2) Hypercholesterolemia: Code(s): E78.00 - Pure hypercholesterolemia, unspecified Status: Acute Assessment and Plan: Continue with atorvastatin (3) Diarrhea: Code(s): R19.7 - Diarrhea, unspecified Status: Acute Assessment and Plan: -the patient had been on Cipro for approximately 1 week and now has diarrhea. -stools have been sent for cultures C diff -ve Patient states he has been having chronic diarrhea more than 5 wk. Appreciate GI consultation, consider secondary to COVID infection Follow-up calprotectin and stool leukocyte No plan of colonoscopy (4) Diastolic dysfunction: Onset Date: 04/2022 Code(s): I51.89 - Other ill-defined heart diseases Status: Acute Assessment and Plan: No recent echo for comparison. -an echo has been ordered. (5) Type 2 diabetes mellitus without complications: Code(s): E11.9 - Type 2 diabetes mellitus without complications Status: Acute Assessment and Plan: I am holding metformin in the event that the patient will need to go for cardiac catheterization. -Accu-Cheks AC and HS with sliding scale insulin and hypoglycemic protocol. -check A1c. (6) Hypothyroidism, unspecified: Code(s): E03.9 - Hypothyroidism, unspecified Status: Acute Assessment and Plan: Check thyroid levels -continue with levothyroxine (7) Paroxysmal atrial fibrillation: Code(s): I48.0 - Paroxysmal atrial fibrillation Status: Acute Assessment and Plan: -patient's EKG was read as supraventricular tachycardia VS afib RVA -the patient is on Xarelto. -the patient was started on metoprolol -parking meter attendant been consulted.C/W metorolol -heart rate is controlled (8) COVID: Code(s): U07.1 - COVID-19 Status: Acute Assessment and Plan: -supportive care. The patient is on room air. -the patient was placed on droplet and contact isolation. -the patient stated he is fully vaccinated. Subjective Date/time seen: 09/25/22 17:14 Saw exam patient. Patient denies palpitation, chest pain, but still has diarrhea bilateral lower abdominal pain No new issue or events overnight Exam Narrative: GENERAL:? Pleasant,? in no acute distress. Well-nourished. - EYES: EOMI. Anicteric. - HENT: Moist mucous membranes. - LUNGS: Clear to auscultation bilaterally, no wheezing, rhonchi, or rales. - CARDIOVASCULAR: Regular rate and rhythm. No murmur. No JVD. - ABDOMEN: Soft, non-tender and non-distended. No palpable masses. - EXTREMITIES: No edema. Peripheral pulses 2+. Non-tender. - NEUROLOGIC: No focal neurological deficits. CN II-XII grossly intact. - PSYCHIATRIC: Awake, Alert and oriented x 3. Appropriate mood and affect. - SKIN: No rashes or lesions. Warm. - LYMPH: No cervical lymphadenopathy. 09/24/22 16:34 Sidney Duarte MD Objective Data Vital Signs Vital Signs: Vital Signs - 24 hr 09/24/22 18:00 09/24/22 19:56 09/24/22 20:38 Temperature 98.0 F Pulse Rate 93 80 80 Respiratory Rate 18 Blood Pressure 116/78 Pulse Oximetry 97 Oxygen Delivery 09/24/22 20:00 09/24/22 20:00 09/24/22 23:20 Temperature 98.0 F Pulse Rate 75 85 Respirator
[2022-09-25] MEDS: RIVAROXABAN 20 MG TABLET PO (18:52)
[2022-09-25] MEDS: ACETAMINOPHEN 325 MG TABLET 650 MG PO (21:20)
[2022-09-26] VITALS: BP 135/70; PULSE 52; PULSE 62; RESP 14; TEMP 36.3; O2SAT 99
[2022-09-26 02:57] LABS: Glucose Point of Care 213 mg/dl (65-105)
[2022-09-26 04:00] VITALS: PULSE 56
[2022-09-26 07:57] LABS: Glucose Point of Care 141 mg/dl (65-105)
[2022-09-26 08:00] VITALS: BP 115/53; PULSE 74; PULSE 77; RESP 16; TEMP 36.9; O2SAT 99
[2022-09-26 09:39] VITALS: PULSE 74
[2022-09-26] MEDS: METOPROLOL TARTRATE 12.5 MG TABLET PO (09:39)
[2022-09-26] MEDS: LOPERAMIDE HCL 2 MG CAPSULE BY MOUTH (09:39)
[2022-09-26] MEDS: ISOSORBIDE MONONITRATE 30 MG TAB.ER.24H PO (09:39)
[2022-09-26] MEDS: LEVOTHYROXINE SODIUM 100 MCG TABLET PO (09:39)
[2022-09-26] MEDS: CHOLECALCIFEROL 1,000 UNITS TABLET 1000 UNITS PO (09:39)
[2022-09-26] MEDS: ASPIRIN 81 MG ENTERIC TABLET PO (09:39)
[2022-09-26] MEDS: ATORVASTATIN 20 MG TABLET PO (09:39)
[2022-09-26] MEDS: PANTOPRAZOLE 40 MG TABLET PO (09:39)
[2022-09-26 11:54] LABS: Glucose Point of Care 222 mg/dl (65-105)
[2022-09-26 12:00] VITALS: PULSE 60
[2022-09-26] MEDS: INSULIN ASPART (*BKC) 100 UNITS/ML SUB-Q (12:12)
--- NOTE | 2022-09-26 12:29 | PM.DS ---
DS: Admitting Diagnosis Discharge Date today Admitting Diagnosis chest pain, chronic diarrhea, AFib DS: Summary Hospital Course Reason for hospitalization: chest pain, chronic diarrhea, AFib Hospital Course: This is an 87-year-old male patient who felt like his heart was racing.? He had no chest pain or pressure.? The patient did not have a syncopal episode.? He did not feel dizzy or lose consciousness.? His fish icer is Dr. Kapoor.? The patient recently was started on Cipro and has been having diarrhea for the last week.? The patient has completed his course of Cipro.? No other sick contacts.? His white count is 10.8, sodium 136.? Glucose 185.? First 2 troponins are nonreactive and and the 3rd troponin was mildly elevated at 0.045.? The patient was positive for COVID.? Patient's EKG was read as supraventricular tachycardia left bundle branch block.? The patient was given IV fluids, and Lopressor.? Cardiology has been consulted.? The patient is being admitted to observation status on the date of service of 09/23/2022. during hospitalization, patient was found to have marginal had troponin, echocardiogram shows no ischemia, would consult the fish icer, per cardiology's evaluation, we rule out ACS. patient has process AFib, had short episodes bradycardia, fish icer recommend starting low-dose metoprolol 12.5 mg b.i.d. p.o. and also has started sotalol 20 mg daily p.o. during hospitalization, patient still has diarrhea, COVID-19 screening is positive, C diff test is negative. appreciate GI consultation, check considers a possible COVID infection related to diarrhea. patient has 1 bowel movement today. will refer patient to GI outpatient follow-up. uncontrolled type 2 diabetes new line continue metformin p.o., add Amaryl 1 mg daily p.o. patient will follow-up with primary care doctor for better glucose control. discontinue antibiotics, patient continue rest of home medications patient will be discharged home today. Patient is afebrile, hemodynamically stable. No event during hospitalization Time Spent with Patient Time attestation: Total time spent providing and/or coordinating discharge services: Exam Narrative: GENERAL: Pleasant, in no acute distress. Well-nourished. - EYES: EOMI. Anicteric. - HENT: Moist mucous membranes. - LUNGS: Clear to auscultation bilaterally, no wheezing, rhonchi, or rales. - CARDIOVASCULAR: Regular rate and rhythm. No murmur. No JVD. - ABDOMEN: Soft, non-tender and non-distended. No palpable masses. - EXTREMITIES: No edema. Peripheral pulses 2+. Non-tender. - NEUROLOGIC: general weakness, No focal neurological deficits. CN II-XII grossly intact. - PSYCHIATRIC: Awake, Alert and oriented x 3. Appropriate mood and affect. - SKIN: No rashes or lesions. Warm. - LYMPH: No cervical lymphadenopathy. DS: Data Data Completed and Pending Labs on day of discharge: Labs from last 24 hours 09/26/22 09/26/22 09/25/22 11:44 07:53 20:18 POC Capillary Glucose 222 H 141 H 213 H Stool Calprotectin 09/25/22 09/25/22 18:38 16:37 POC Capillary Glucose 126 H Stool Calprotectin Pending Discharge Plan Discharge Attending physician on discharge: Sidney Duarte Consulting providers: Dawson Kapoor ; Barrington Petersen Discharging Clinician: Sidney Duarte Anticipated Discharge Date/Time: 09/26/22 12:18 Patient Disposition: Home Health Service Diet: heart healthy Patient Instructions: Antibiotic Form, Rivaroxaban (By mouth), Pain Management in Older Adults (DC) Stand Alone Forms: General Discharge Information Follow-up/Referrals: Barrington Petersen MD [Physician] - Aryan Mendosa MD [Primary Care Provider] - Discharge Medications: New glimepiride [Amaryl] 1 mg tablet 1 mg PO DAILY Qty: 30 1RF metoprolol tartrate 25 mg tablet 12.5 mg PO BID Qty: 60 1RF Xarelto 20 mg tablet 20 mg PO DAILY Qty: 30 1RF Rx Instruc
[2022-09-26 15:38] LABS: Glucose Point of Care 147 mg/dl (65-105)
--- NOTE | 2022-09-27 11:05 | PC.NURSE ---
Patient called wanting clarification if Metoprolol was sent to pharmacy. This nurse noted that from our computer system it looks like [facility] received the electronic transmission for the script. Patient voiced understanding.
[2022-10-02 21:33] LABS: Calprotectin, Stool 118 mcg/g
== END 2022-09-26 16:15 | disposition home or self-care (01) ==
LOC: ANHED 13:01 → ANHIMU 17:25 → ANH3MEDSUR 09-25 12:44 → ANHIMU 09-29 12:28
PROVIDERS: Internal Medicine Gastroenterology; Nurse Practitioner; Admitting Provider Student in an Organized Health Care Education/Training Program; Emergency Provider Emergency Medicine; PCP Family Medicine Adolescent Medicine; Visit Provider Hospitalist
DX: R07.9 Chest pain, unspecified (principal); I47.1 Supraventricular tachycardia; R19.7 Diarrhea, unspecified; I51.89 Other ill-defined heart diseases; U07.1 COVID-19; R77.8 Other specified abnormalities of plasma proteins; I25.10 Atherosclerotic heart disease of native coronary artery without angina pectoris; I48.0 Paroxysmal atrial fibrillation; Z79.82 Long term (current) use of aspirin; E11.9 Type 2 diabetes mellitus without complications; Z85.46 Personal history of malignant neoplasm of prostate; E03.9 Hypothyroidism, unspecified; E78.00 Pure hypercholesterolemia, unspecified; Z86.73 Personal history of transient ischemic attack (TIA), and cerebral infarction without residual deficits; Z87.891 Personal history of nicotine dependence; Z86.79 Personal history of other diseases of the circulatory system
CPT/HCPCS: 36415; 71046; 78452; 80053; 82948; 83036; 83605; 83690; 83735; 83993; 84443; 84484; 85025; 85610; 85730; 87045; 87427; 87493; 87636; 89055; 93005; 93017; 96374; 96375; 99285; A9270; A9502; C8929; G0378; J1815; J2550; J2785; J7030; Q9957

== ENCOUNTER 2023-05-19 13:32 | Outpatient (CLI) | payer MEDICARE, SELFPAY ==
[2023-05-19 14:42] LABS: Vitamin D 25 Hydroxy 74.3 ng/mL
[2023-05-21 22:47] LABS: Ionized Calcium 4.7 mg/dL (4.7-5.5)
== END 2023-05-19 13:33 | disposition home or self-care (01) ==
PROVIDERS: PCP Family Medicine Adolescent Medicine
DX: E55.9 Vitamin D deficiency, unspecified (principal); M85.80 Other specified disorders of bone density and structure, unspecified site
CPT/HCPCS: 36415; 82306; 82330

== ENCOUNTER 2023-05-27 15:45 | Outpatient (CLI) | payer MEDICARE, SELFPAY ==
[2023-05-27 16:50] LABS: Hemoglobin 13.6 g/dL (14.0-18.0); Mean Corpuscular HGB Conc 32.4 g/dl (32-36); Mean Corpuscular Hemoglobin 28.3 pg (26-34); Mean Corpuscular Volume 87.5 fl (80-100); Mean Platelet Volume 10.8 fl (7.4-10.4); Platelet Count Result 226 k/mm3 (150-375); Red Cell Distribution Width 13.7 % (11.5-14.5); White Blood Count 8.3 K/mm3 (4.5-10.0)
[2023-05-27 16:54] LABS: Alanine Aminotransferase 24 U/L (6-50); Albumin Level 3.9 g/dL (3.5-5.1); Alkaline Phosphatase 78 U/L (38-126); Anion Gap 6 mmol/L (8-16); Aspartate Amino Transferase 30 U/L (17-59); Bilirubin,Total 0.9 mg/dL (0.2-1.3); Blood Urea Nitrogen 23 mg/dL (9-20); Calcium 8.8 mg/dL (8.4-10.2); Carbon Dioxide 29 mmol/L (22-30); Chloride 101 mmol/L (98-107); Estimated Glomerular Filt Rate > 60; Glucose 106 mg/dL (65-110); Potassium 4.2 mmol/L (3.4-5.0); Sodium 136 mmol/L (137-145)
[2023-05-27 20:58] LABS: Hemoglobin A1C 5.6 % (<5.7)
== END 2023-05-27 15:46 | disposition home or self-care (01) ==
PROVIDERS: PCP Family Medicine Adolescent Medicine; Visit Provider Family Medicine Adolescent Medicine
DX: E03.9 Hypothyroidism, unspecified (principal); E11.9 Type 2 diabetes mellitus without complications; E78.00 Pure hypercholesterolemia, unspecified; Z79.01 Long term (current) use of anticoagulants; R14.0 Abdominal distension (gaseous)
CPT/HCPCS: 36415; 80053; 83036; 84443; 85027

== ENCOUNTER → 2023-06-01 09:16 | Outpatient (CLI) | payer MEDICARE, SELFPAY ==
--- NOTE | ~2023-06-01 | US_ITS ---
US abdomen complete EXAMINATION: US Abdomen Complete INDICATION: Abdomen distention. Check for ascites. PROCEDURE: Realtime High Resolution abdomen ultrasound. COMPARISON: No prior studies for comparison FINDINGS: Gallbladder within normal limits. No gallstones, pericholecystic fluid, gallbladder wall t hickening or biliary dilatation. Common bile duct measures 4 mm. Liver echotexture within normal limits without focal mass. Pancreas within normal limits. Pancreati c tail is obscured by bowel gas. Spleen is unremarkeable. Renal echotexture is within normal limits bilaterally without hydronephrosis, contour deforming mass or renal stone. Right kidney measures 10.5 cm. Left kidney measures 10.4 cm. Visualized aspects of the aorta and IVC are within normal limits. Portal vein is patent. No sonograph ic López's sign indicated by the technologist. IMPRESSION: 1: Normal abdominal ultrasound. Reviewed, dictated and finalized at location B.
== END ==
PROVIDERS: PCP Family Medicine Adolescent Medicine; Visit Provider Family Medicine Adolescent Medicine
DX: R14.0 Abdominal distension (gaseous) (principal)
CPT/HCPCS: 76700

== ENCOUNTER 2023-08-06 12:12 | Emergency (ER) | payer MEDICARE, SELFPAY ==
--- NOTE | ~2023-08-06 | XR_ITS ---
XR chest 1V portable 08/06/2023 15:18 Indication: Shortness of breath. 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 Weakness. Procedure: AP portable chest Comparison: Comparison to multiple prior studies sequentially, with oldest reviewed study dated 07/11. Findings: Status post median sternotomy for CABG. Heart size normal. No focal air space disease, pulm onary edema, pleural effusion or suspected pneumothorax. Impression: 1: No acute cardiopulmonary disease. Reviewed, dictated and finalized at location L. LOPER Impression: 1: No acute cardiopulmonary disease.
[2023-08-06 12:32] VITALS: BP 122/61; PULSE 118; RESP 18; TEMP 36.6; O2SAT 98
[2023-08-06 13:39] LABS: Basophils Percent Auto 0.4 % (0.2-1.2); Eosinophils Percent Auto 0.4 % (0-4.4); Hemoglobin 14.6 g/dL (14.0-18.0); Immature Granulocyte Absolute 0.03 K/mm3 (0.00-0.031); Immature Granulocyte Percent A 0.3 % (0-0.5); Lymphocytes Absolute Auto 1.39 K/mm3 (0.9-3.2); Lymphocytes Percent Auto 12.9 % (18.3-44.2); Mean Corpuscular HGB Conc 33.2 g/dl (32-36); Mean Corpuscular Hemoglobin 28.8 pg (26-34); Mean Corpuscular Volume 86.8 fl (80-100); Mean Platelet Volume 10.4 fl (7.4-10.4); Monocytes Absolute Auto 0.6 K/mm3 (0.1-0.6); Monocytes Percent Auto 5.8 % (2.6-8.5); Neutrophils Absolute Auto 8.6 K/mm3 (1.3-6.7); Neutrophils Percent Auto 80.2 % (45.5-73.1); Platelet Count Result 222 k/mm3 (150-375); Red Blood Count 5.07 M/mm3 (4.6-6.20); Red Cell Distribution Width 13.6 % (11.5-14.5); White Blood Count 10.8 K/mm3 (4.5-10.0)
--- NOTE | 2023-08-06 13:43 | ED.EPISTAXIS ---
HPI - Epistaxis General Chief complaint: Epistaxis Stated complaint: epistaxis Time Seen by Provider: 08/06/23 13:21 History of Present Illness HPI Narrative: 88-year-old male on Eliquis presenting to the emergency department for evaluation epistaxis. Patient reports he has had multiple nosebleeds over the last few weeks. Epistaxis has resolved upon arrival to the emergency department. Patient reports he has also had some intermittent shortness of breath and some nausea. Related Data Home Medications Medication Instructions Recorded Confirmed ergocalciferol (vitamin D2) 1,250 50,000 unit PO [id number] 11/23/20 05/26/23 mcg (50,000 unit) capsule isosorbide mononitrate 30 mg 30 mg PO DAILY 11/23/20 05/26/23 tablet,extended release 24 hr aspirin 81 mg tablet,delayed 81 mg PO DAILY 10/24/21 05/26/23 release loperamide 2 mg capsule 2 mg BYMOUTH TID PRN Acid Reflux 10/06/22 05/26/23 Allergies Allergy/AdvReac Type Severity Reaction Status Date / Time No Known Allergies Allergy Verified 05/26/23 14:54 Review of Systems Review of Systems: All systems reviewed & are unremarkable except as noted in HPI and below PMFSH Past Medical History Medical History (Updated 08/06/23 @ 15:45 by Shaji Salas MD) CAD (coronary artery disease) COVID Diabetes mellitus History of bradycardia History of left heart catheterization History of prostate cancer History of prostate cancer 2000 Hypothyroidism Normal colonoscopy 01/25 TIA (transient ischemic attack) Surgical History Surgical History H/O prostatectomy 2000 History of cardiac catheterization History of tonsillectomy 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 He had 2 children 1 is still living and one has . 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 Code status full code Smoking packs per day: 3 Smoking cigarettes per day: 60.0 Years smoked: 25 Smoking pack-years: 75.00 Smoking status: Former smoker Tobacco type: cigarettes Smoking end date: 10/09/77 Alcohol intake: current Drinks per week: 14 Substance use: never Substance use type: does not use Lack of Transportation: No Lack of Food: Never True Current Housing: I Have Housing Concerned About Future Housing: No Difficulty Paying Gas/Electric Bills: No Difficulty Paying for Meds: No Currently Unemployed: No Education: Decline to Answer Difficulty w/ Childcare or Family Care: No Living arrangements: alone Occupation/Education: retired Gender identity (if verbalized by the patient): Male Sexual Orientation (if Verbalized by the Patient): Straight or Heterosexual Spiritual care concerns: No Agree to blood products: Yes Exam Narrative: APPEARANCE: Well appearing, no pain, no distress, well-nourished. HEAD: normocephalic, atraumatic. EYES: PERRLA/EOMI, conjunctivae clear. NOSE: Epistaxis through left naris, bleeding resolved EARS:TMS clear with good light reflex. THROAT: Pharynx clear, no exudate. NECK: Supple. No adenopathy, no masses. RESPIRATORY: Airway patent, respirations nonlabored. Clear to auscultation bilaterally, no rales, rhonchi, wheezing. CARDIOVASCULAR: Regular rate and rhythm without murmurs rubs or gallops. ABDOMINAL: Soft, nontender, nondistended, normal bowel sounds MUSCULOSKELETAL: Moves all extremities. Strength/ROM intact, No edema, No calf tenderness. NEURO: Alert. Cranial nerves II through XII intact. Good gait. Good coordination SKIN: Warm, dry. Normal Color Course Course Emergency Course: 80-yea
[2023-08-06 13:50] LABS: INR 1.4; Prothrombin Time 18.3 Seconds (11.1-14.7)
[2023-08-06 13:52] LABS: Partial Thromboplastin Time 33.2 SECONDS (22.3-36.8)
[2023-08-06 13:54] LABS: Alanine Aminotransferase 25 U/L (6-50); Alkaline Phosphatase 108 U/L (38-126); Anion Gap 7 mmol/L (8-16); Aspartate Amino Transferase 29 U/L (17-59); Blood Urea Nitrogen 20 mg/dL (9-20); Calcium 9.5 mg/dL (8.4-10.2); Carbon Dioxide 26 mmol/L (22-30); Chloride 104 mmol/L (98-107); Estimated CRCL calculation 69 ml/min; Estimated Glomerular Filt Rate > 60; Glucose 164 mg/dL (65-110); Potassium 4.6 mmol/L (3.4-5.0); Sodium 137 mmol/L (137-145)
[2023-08-06] MEDS: OXYMETAZOLINE HCL 0.05% NAS 15 ML BTL (*BKC) 1 SPRAY NASAL (14:30)
[2023-08-06 14:49] VITALS: PULSE 109; RESP 13; O2SAT 98
[2023-08-06] MEDS: ONDANSETRON HCL ODT 4 MG TABLET PO (15:21)
[2023-08-06 15:22] VITALS: PULSE 104; RESP 15
[2023-08-06 15:25] LABS: Influenza A QL RT-PCR Negative (Negative); Influenza B QL RT-PCR Negative (Negative); RSV RNA, RT-PCR Negative (Negative); SARS-CoV-2 RNA PCR Negative (Negative)
[2023-08-06 16:23] VITALS: BP 117/72; PULSE 92; RESP 18; O2SAT 98
== END 2023-08-06 16:25 | disposition home or self-care (01) ==
PROVIDERS: Emergency Provider Emergency Medicine; PCP Family Medicine Adolescent Medicine
DX: I25.10 Atherosclerotic heart disease of native coronary artery without angina pectoris (principal); E11.9 Type 2 diabetes mellitus without complications; E03.9 Hypothyroidism, unspecified; Z95.1 Presence of aortocoronary bypass graft; Z85.46 Personal history of malignant neoplasm of prostate; Z86.16 Personal history of COVID-19; Z86.73 Personal history of transient ischemic attack (TIA), and cerebral infarction without residual deficits; Z87.891 Personal history of nicotine dependence; Z90.79 Acquired absence of other genital organ(s); Z79.82 Long term (current) use of aspirin; Z79.84 Long term (current) use of oral hypoglycemic drugs; Z79.01 Long term (current) use of anticoagulants
CPT/HCPCS: 30901; 36415; 71045; 80053; 85025; 85610; 85730; 87637; 99283; A9270

== ENCOUNTER 2023-08-31 16:14 | Emergency (ER) | payer MEDICARE, SELFPAY ==
--- NOTE | ~2023-08-31 | XR_ITS ---
EXAMINATION: XR wrist LT 2V DATE: 08/31/2023 20:37 INDICATION: Distal left radius fracture status post reduction. TECHNIQUE: 2 views of left wrist were obtained. COMPARISON: Left wrist radiographs at 4:26 PM FINDINGS: There is a comminuted, predominantly oblique fracture of distal radial metaphysis. The main distal fracture fragment demonstrates 7 mm radial displacement, radial angulation, impaction, and do rsal angulation. The articular surface demonstrates 33 degrees dorsal tilt. There is an avulsion frac ture of the ulnar styloid. There is mild osteoarthritis of triscaphe joint and first carpometacarpal joint. IMPRESSION: 1. Comminuted fracture of distal radial metaphysis. 2. Avulsion fracture of the ulnar styloid. Reviewed, dictated and finalized at location E. RMATION DEVELOPER
--- NOTE | ~2023-08-31 | XR_ITS ---
EXAMINATION: XR wrist LT 2V DATE: 08/31/2023 16:40 INDICATION: Left wrist injury. TECHNIQUE: 2 views of left wrist were obtained. COMPARISON: None. FINDINGS: There is an oblique fracture of distal radial metaphysis. The distal fracture fragment demo nstrates 4 mm radial displacement, impaction, and dorsal and radial angulation. There is 31 degrees d orsal tilt of the distal articular surface. There is mild osteoarthritis of triscaphe joint and first carpometacarpal joint. IMPRESSION: 1. Oblique fracture of distal radial metaphysis. 2. Polyarticular osteoarthritis. Reviewed, dictated and finalized at location E. OR NETWORK SECURITY ENGINEER
--- NOTE | ~2023-08-31 | XR_ITS ---
EXAMINATION: XR wrist LT 2V DATE: 08/31/2023 21:57 INDICATION: Distal left radius fracture status post reduction and splinting. TECHNIQUE: 2 views of left wrist were obtained. COMPARISON: Left wrist radiographs at 8:33 PM FINDINGS: There is a comminuted fracture of distal radial metaphysis. The main distal fracture fragme nt demonstrates 22 degrees radial angulation, impaction, 5 mm dorsal displacement, and dorsal angulat ion. There is 54 degrees dorsal tilt of the distal articular surface. There is an avulsion fracture o f the ulnar styloid. There is mild osteoarthritis of first metacarpophalangeal joint. IMPRESSION: 1. Comminuted fracture of distal radial metaphysis. 2. Avulsion fracture of the ulnar styloid. Reviewed, dictated and finalized at location E. HOOKER
--- NOTE | ~2023-08-31 | XR_ITS ---
EXAMINATION: XR elbow LT 2V DATE: 08/31/2023 16:40 INDICATION: Left elbow injury and pain and swelling. TECHNIQUE: 2 views of left elbow on 3 radiographs were obtained. COMPARISON: None. FINDINGS: Bone alignment is normal. No fracture. Joint spaces are normal. No elbow joint effusion. IMPRESSION: 1. No fracture. Reviewed, dictated and finalized at location E. TS MANAGER IMPRESSION: 1. No fracture.
[2023-08-31 16:18] VITALS: BP 141/65; PULSE 88; RESP 20; TEMP 37; O2SAT 100
--- NOTE | 2023-08-31 18:12 | ED.UPPEXIN ---
HPI - Extremity Injury (Upper) General Chief Complaint: Extremity Injury, Upper Stated Complaint: L wrist injury Time Seen by Provider: 08/31/23 17:32 History of Present Illness HPI narrative: 88-year-old male presenting with left wrist injury after falling. States that he slipped on the ice and caught himself his left wrist. He was able to ambulate inside and call his son who brought him in for evaluation. Did not strike his head or lose consciousness. No neck or back pain. Did not have difficulty ambulating. No further complaints. Related Data Home Medications Medication Instructions Recorded Confirmed ergocalciferol (vitamin D2) 1,250 50,000 unit PO [id number] 11/23/20 09/04/23 mcg (50,000 unit) capsule isosorbide mononitrate 30 mg 30 mg PO DAILY 11/23/20 09/04/23 tablet,extended release 24 hr aspirin 81 mg tablet,delayed 81 mg PO DAILY 10/24/21 09/04/23 release Allergies Allergy/AdvReac Type Severity Reaction Status Date / Time No Known Allergies Allergy Verified 09/04/23 13:53 Review of Systems Review of Systems: All systems reviewed & are unremarkable except as noted in HPI and below PMFSH Past Medical History Medical History CAD (coronary artery disease) COVID Diabetes mellitus History of bradycardia History of left heart catheterization History of prostate cancer History of prostate cancer 2000 Hypothyroidism Normal colonoscopy 01/25 TIA (transient ischemic attack) Surgical History Surgical History H/O prostatectomy 2000 History of cardiac catheterization History of tonsillectomy 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 He had 2 children 1 is still living and one has . 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 Code status full code Smoking packs per day: 3 Smoking cigarettes per day: 60.0 Years smoked: 25 Smoking pack-years: 75.00 Smoking status: Former smoker Tobacco type: cigarettes Smoking end date: 10/09/77 Alcohol intake: current Drinks per week: 14 Alcohol use details: BEER Substance use: never Substance use type: does not use Lack of Transportation: No Lack of Food: Never True Current Housing: I Have Housing Concerned About Future Housing: No Difficulty Paying Gas/Electric Bills: No Difficulty Paying for Meds: No Currently Unemployed: No Education: Decline to Answer Difficulty w/ Childcare or Family Care: No Living arrangements: with family Occupation/Education: retired Gender identity (if verbalized by the patient): Male Sexual Orientation (if Verbalized by the Patient): Straight or Heterosexual Spiritual care concerns: No Agree to blood products: Yes Exam Narrative: GENERAL: Well-appearing, No acute distress, pleasant cooperative HEAD: Normocephalic, atraumatic. EYES: PERRLA and EOMI. ENT: grossly unremarkable NECK: Supple. CHEST: No respiratory distress. HEART: Regular rate and rhythm ABDOMEN: Soft, nontender, nondistended EXTREMITIES: left wrist deformity and swelling, diffusely tender; no sensory deficits, 2+ radial pulses SKIN: Warm, dry, no rash. NEURO: Alert and oriented x3. PSYCH: Normal mood and affect. Course Vital Signs Vital signs: Vital Signs Temperature 98.6 F 08/31/23 16:18 Pulse Rate 88 08/31/23 16:18 Respiratory Rate 20 08/31/23 16:18 Blood Pressure 141/65 H 08/31/23 16:18 Pulse Oximetry 100 08/31/23 16:18 Oxygen Delivery Room Air 08/31/23 16:18 Temperature 98.
[2023-08-31] MEDS: HYDROcodone/acetaminophen (*CRX) 5-325 MG TABLET 1 TAB PO ×2 (18:45→22:10)
[2023-08-31 22:41] VITALS: BP 159/78; PULSE 77; RESP 17; O2SAT 99
== END 2023-08-31 22:43 | disposition home or self-care (01) ==
PROVIDERS: Emergency Provider Emergency Medicine; PCP Family Medicine Adolescent Medicine
DX: S52.592A Other fractures of lower end of left radius, initial encounter for closed fracture (principal); S52.612A Displaced fracture of left ulna styloid process, initial encounter for closed fracture; I25.10 Atherosclerotic heart disease of native coronary artery without angina pectoris; E11.9 Type 2 diabetes mellitus without complications; E03.9 Hypothyroidism, unspecified; Z95.1 Presence of aortocoronary bypass graft; Z85.46 Personal history of malignant neoplasm of prostate; Z86.16 Personal history of COVID-19; Z86.73 Personal history of transient ischemic attack (TIA), and cerebral infarction without residual deficits; Z87.891 Personal history of nicotine dependence; Z90.79 Acquired absence of other genital organ(s); M19.032 Primary osteoarthritis, left wrist; M18.9 Osteoarthritis of first carpometacarpal joint, unspecified; W00.0XXA Fall on same level due to ice and snow, initial encounter
CPT/HCPCS: 25605; 25624; 73070; 73100; 99285; A9270

== ENCOUNTER 2023-09-10 18:54 | Observation (INO) | payer MEDICARE, SELFPAY ==
[2023-09-07 08:55] VITALS: BMI 30.2
--- NOTE | 2023-09-07 09:17 | PC.NURSE ---
Report to the Outpatient Waiting Room, entrance under the green pavilion located off [facility], at time _1145 AM on date __09/09/23 . Planned Procedure Time: __1:45 PM . Time changes happen often and if your time is changed the preop area will call you the afternoon before. - You and your visitor will be asked to self-screen and do not enter if you have any COVID symptoms. - A mask is optional within the hospital at this time. Patients may have clear liquids (water, carbonated beverages, clear teas, apple juice) until 3 hours prior to surgery (1045 AM) with a maximum of 20 ounces. - No food from midnight until time of surgery - Infants may have breast milk until 4 hours before surgery, infant formula 6 hours prior to surgery. - Children will be allowed to drink immediately following surgery. If applicable, please bring a bottle or sippy cup to assist with drinking. Juice, water, soda, and popsicles are readily available. For infants on formula, please bring formula the day of surgery. Pacifiers are allowed. Take the following medications with a SIP of water the morning of surgery: _ISOSORBIDE, LEVOTHYROXINE, METOPROLOL, & LORAZEPAM, PAIN MED IF NEEDED_ DO NOT STOP ANY OF YOUR OTHER PRESCRIPTION MEDICATIONS PRIOR TO SURGERY ?EXCEPT THE FOLLOWING Medications to discontinue _(PER PATIENT) INSTRUCTED BY DR ARIAS - CONTINUE ASPIRIN & HAS STOPPED XARELTO LAST THURSDAY_ Date last dose taken 09/04/23 Please no make-up, nail chinese, hairspray, perfume, deodorant, or body powder the day of surgery. No jewelry (including any body piercings) or valuables the day of surgery, leave them at home. Please take a shower or bath the night before, or the morning of, surgery with an antibacterial soap. Wear comfortable, loose fitting clothing. Children are encouraged to wear pajamas. - Jewelry must be removed prior to entering the operating room. Rings and piercings that are not removed may be cut off. - The hospital will not accept responsibility for valuables. - Please leave all valuables, including medications, at home the day of surgery. If you are going home after surgery, a licensed bulk truck driver must drive you home. - NO public transportation without another adult if you receive anesthesia. - We recommend that an adult stay with you for 24 hours following discharge. - We also recommend that you do not drive, make important decision, drink alcoholic beverages, or take any drugs that were not prescribed by your health care provider for at least 24 hours after your discharge time. For Pediatric surgeries, we recommend two adults accompany the child home. Follow any additional instructions given to you from your surgeon. If you or anyone in your household have experienced Covid symptoms in the past week, please notify your surgeon or the nurse liaison at the phone number below for possible testing. Telephone instructions given to ____PT and asked if any additional questions and then verbalized understanding. Patient advised to call surgeon office or pre surgery nurse liaison [phone] if any additional questions.
[2023-09-09] VITALS (9 sets, daily range): BP systolic 103–163; BP diastolic 63–90; PULSE 79–102; RESP 9–18; TEMP 36.2–36.7; O2SAT 97–100
--- NOTE | 2023-09-09 07:18 | WPDHPUPDATE1 ---
History and Physical Update Update Date/Time: 09/09/23 07:18 History and Physical has been reviewed, including an updated exam of the patient. There are NO changes in the patient's condition. Risks, benefits, and alternatives have been discussed and questions answered. Patient agrees to proceed with procedure.
[2023-09-09] MEDS: LACTATED RINGERS 1,000 ML 30 ML IV CONT (12:00)
[2023-09-09] MEDS: CELECOXIB 200 MG CAPSULE PO (12:15)
[2023-09-09] MEDS: ACETAMINOPHEN 500 MG TABLET 1000 MG PO (12:15)
[2023-09-09 12:20] LABS: Glucose Point of Care 146 mg/dl (65-105)
--- NOTE | 2023-09-09 13:54 | WPDANESEPPF ---
Anes - Initial Pre Proc Eval Procedure: Operation Date: 09/09/23 13:45 Proposed Procedures p Open Reduction Internal Fixation Left Wrist Fracture - Fransico Elmore MD Date/Time: 09/09/23 13:54 Surgeon: Fransico Elmore MD Pre Op Diagnosis: Left Wrist Fx Patient Data Age: 88 Gender: M Height: 1.83 m Weight: 99 kg Last Vital Signs Temp 97.2 F L 09/09/23 12:00 Pulse 89 09/09/23 12:00 Resp 18 09/09/23 12:00 BP 103/63 09/09/23 12:00 Pulse Ox 98 09/09/23 12:00 O2 Del Method Room Air 09/09/23 12:00 Allergies Allergy/AdvReac Type Severity Reaction Status Date / Time No Known Allergies Allergy Verified 09/07/23 08:54 Home Medications Medication Instructions Recorded Confirmed Type ergocalciferol (vitamin D2) 1,250 50,000 unit PO [id number] 11/23/20 09/07/23 History mcg (50,000 unit) capsule isosorbide mononitrate 30 mg 30 mg PO DAILY 11/23/20 09/09/23 History tablet,extended release 24 hr aspirin 81 mg tablet,delayed 81 mg PO DAILY 10/24/21 09/09/23 History release metoprolol tartrate 25 mg tablet 12.5 mg PO BID #60 tabs 09/26/22 09/07/23 Rx rivaroxaban 20 mg tablet (Xarelto) 20 mg PO DAILY #30 tabs 09/26/22 09/09/23 Rx levothyroxine 100 mcg tablet 100 mcg PO DAILY #90 tabs 12/22/22 09/09/23 Rx metformin 500 mg tablet,extended 500 mg PO DAILY #90 tabs 03/09/23 09/07/23 Rx release 24 hr glimepiride 1 mg tablet 1 mg PO DAILY #30 tabs 05/17/23 09/07/23 Rx atorvastatin 20 mg tablet 20 mg PO DAILY #90 tabs 05/27/23 09/07/23 Rx pantoprazole 40 mg tablet,delayed See Rx Instructions .Route 07/27/23 09/07/23 Rx release .COMPLEX #90 tabs lorazepam 1 mg tablet 1 mg PO BID PRN anxiety #30 tabs 08/11/23 09/09/23 Rx ondansetron 4 mg disintegrating 4 mg PO QID PRN nausea and 08/11/23 09/07/23 Rx tablet vomiting #30 tabs hydrocodone 5 mg-acetaminophen 325 1 tablet PO Q6H PRN pain #20 tabs 08/31/23 09/07/23 Rx mg tablet Laboratory Tests 09/09/23 12:15 POC Capillary Glucose 146 H mg/dl (65-105) Patient hx anesthesia problems: none Family hx anesthesia problems: none Results Review: All pre-operative results and documents have been reviewed as part of the pre-operative evaluation. 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 He had 2 children 1 is still living and one has . 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 Code status full code Smoking packs per day: 3 Smoking cigarettes per day: 60.0 Years smoked: 25 Smoking pack-years: 75.00 Smoking status: Former smoker Tobacco type: cigarettes Smoking end date: 10/09/77 Alcohol intake: current Drinks per week: 14 Alcohol use details: BEER Substance use: never Substance use type: does not use Lack of Transportation: No Lack of Food: Never True Current Housing: I Have Housing Concerned About Future Housing: No Difficulty Paying Gas/Electric Bills: No Difficulty Paying for Meds: No Currently Unemployed: No Education: Decline to Answer Difficulty w/ Childcare or Family Care: No
[2023-09-09] MEDS: ceFAZolin 2 GM/D5W 50 ML 2 GM/50 ML BAG IVPB ×2 (14:41→21:40)
[2023-09-09] MEDS: BUPivacaine HCL 0.5% 10 ML AMP INFILTRATE (15:18)
[2023-09-09 17:33] LABS: Glucose Point of Care 181 mg/dl (65-105)
--- NOTE | 2023-09-09 17:38 | W.PM.PROC2 ---
Procedure Note - Detailed Date of Procedure 09/09/23 Pre-op Diagnosis Left distal radial shaft fracture Post-op Diagnosis Same Procedure Performed ORIF LEFT DISTAL RADIAL SHAFT FRACTURE Surgeon Fransico Elmore MD Anesthesia General Description of Procedure THE LEFT UPPER EXTREMITY WAS PREPPED AND DRAPED IN THE STERILE FASHION. THERE WAS AN OLD SCAR OVER THE VOLAR FOREARM WHICH WAS THE SIGHT OF A RADIAL ARTERY GRAFT HARVEST FOR A CABG PROCEDURE. AN INCISION WAS MADE OVER THE VOLAR FOREARM OVER THE OLD RADIAL ARTERY HARVESTING INCISION, DOWN TO THE SUBCUTANEOUS TISSUE. DISSECTION THROUGH THE SKIN AND SUBCUTANEOUS TISSUE WAS PREFORMED. THE FCR TENDON WAS IDENTIFIED. SCAR TISSUE FROM THE RADIAL ARTERY HARVEST REGION WAS DISSECTED UNTIL A PLANE OF TISSUE WAS IDENTIFIED. THE THE FLEXOR POLLICIS AND THE COMMON FLEXOR TENDONS WERE IDENTIFIED AND RETRACTED. THE PRONATOR QUADRATUS WAS IDENTIFIED AND INCISED EXPOSING THE FRACTURE. IT WAS HIGHLY COMMINUTED. A TRIAL REDUCTION WAS PREFORMED AND FIXED WITH A K WIRE. NEXT A BIOMET DISTAL RADIUS LOCKING PLATE WAS PLACED BRIDGING THE FRACTURE FRAGMENTS. SCREWS WERE PLACED DISTALLY AND PROXIMALLY. THE DISTAL SCREWS WERE IMAGED AND FOUND TO BE EXTRA ARTICULAR. C ARM IMAGES WERE PREFORMED AND HARDWARE AND FRACTURE FRAGMENTS WERE IN GOOD POSITION. THE TOURNIQUET WAS DEFLATED AND THE BLEEDERS WERE CAUTERIZED. THERE WAS GOOD PERFUSION TO THE SKIN AND SURROUNDING SOFT TISSUES. THE FINGER WERE PINK AND WARM. THE FASCIA AND SUB CUTANEOUS LAYERS WERE APPROXIMATED WITH 3-0 VICRYL. THE SKIN WAS APPROXIMATED WITH BERTHA. STERILE DRESSING AND SPLINT WAS APPLIED. PATIENT WAS EXTUBATED. NV CHECK IN THE RECOVERY ROOM SHOWED GOOD TISSUE PERFUSION TO ALL FINGERS AND NV INTACT. Estimated Blood Loss 50 Complications No immediate complications Condition Stable Disposition PACU
[2023-09-09] MEDS: fentaNYL CITRATE INJ (*CRX) 100 MCG/2 ML VIAL 25 MCG IV PUSH ×6 (17:47→18:16)
--- NOTE | 2023-09-09 18:57 | SUR.PHASEI ---
PATIENT C/O'S LIGHT-HEADEDNESS AND PAIN 7-8/10 TO LEFT WRIST. BP STABLE; NO SHORTNESS OF BREATH. DR. FLOWER VIDAL'D PATIENT TO BE ADMITTED.
--- NOTE | 2023-09-09 19:00 | ADMGEN ---
This patient, Mathew Pleitez, was admitted to 2 Medical Room 261-01. Patient/family oriented to hospital policies and general routines including ID bracelet, bed and alarms, visiting hours, pain management, procedures, bathroom and other care routines, personal items, smoking policy, room service/diet, and visiting hours. Information on how to activate the Rapid Response Team has been discussed. Patient/Family are encouraged to report perceived risks to care and to ask questions if they do not understand what they are told or what they should do.
[2023-09-09] MEDS: SODIUM CHLORIDE 0.9% IV 1,000 ML 125 ML IV CONT (21:39)
[2023-09-09] MEDS: SENNA/DOCUSATE SODIUM TABLET 2 TAB PO (21:41)
[2023-09-09] MEDS: METOPROLOL TARTRATE 12.5 MG TABLET PO (21:41)
[2023-09-09] MEDS: ACETAMINOPHEN 325 MG TABLET 650 MG PO (21:48)
[2023-09-09] MEDS: HYDROcodone/acetaminophen (*CRX) 7.5-325 MG TABLET 1 TAB PO (23:07)
--- NOTE | ~2023-09-10 | XR_ITS ---
EXAMINATION: XR surgery orthopedic DATE: 09/09/2023 17:12 INDICATION: Distal left radius fracture. TECHNIQUE: 2 intraoperative fluoroscopic views of distal left radius were obtained. COMPARISON: Left wrist radiographs 09/04/2023 FINDINGS: There is a comminuted fracture of distal radius without involvement of the distal articular surface. The main distal fracture fragment demonstrates 3 mm radial displacement, 7 degrees radial a ngulation, and shortening. Internal fixation is seen with volar plate and screws. There is an avulsio n fracture of the ulnar styloid. IMPRESSION: 1. Comminuted fracture of distal radius status post open reduction internal fixation. 2. Avulsion fracture of the ulnar styloid. Reviewed, dictated and finalized at location A. EL BUFFER IMPRESSION: 1. Comminuted fracture of distal radius status post open reduction internal fix ation. 2. Avulsion fracture of the ulnar styloid.
[2023-09-10 00:33] VITALS: BP 136/74; PULSE 88; RESP 18; TEMP 36.6; O2SAT 98
[2023-09-10 04:33] VITALS: BP 130/74; PULSE 89; RESP 18; TEMP 36.5; O2SAT 99
[2023-09-10] MEDS: HYDROcodone/acetaminophen (*CRX) 7.5-325 MG TABLET 1 TAB PO ×4 (04:58→21:10)
[2023-09-10] MEDS: LEVOTHYROXINE SODIUM 100 MCG TABLET PO (04:58)
[2023-09-10] MEDS: ceFAZolin 2 GM/D5W 50 ML 2 GM/50 ML BAG IVPB ×2 (05:00→14:10)
[2023-09-10] MEDS: SODIUM CHLORIDE 0.9% IV 1,000 ML 125 ML IV CONT (05:45)
--- NOTE | 2023-09-10 07:47 | WPDANESPN ---
Anes - Prog Note Post-Op Date/Time: 09/10/23 07:47 Cardiovascular status: normal Respiratory status: normal Airway patency: baseline Mental status: baseline Post-Op hydration status: normal Vital Signs: Last Vital Signs Temp 97.7 F 09/10/23 04:33 Pulse 89 09/10/23 04:33 Resp 18 09/10/23 04:33 BP 130/74 09/10/23 04:33 Pulse Ox 99 09/10/23 04:33 O2 Del Method Room Air 09/09/23 18:40 O2 Flow Rate 6 09/09/23 17:55 Pain Score (VAS): 0/10 I/O: Intake & Output 09/09/23 09/09/23 09/10/23 15:59 23:59 07:59 Intake Total 50 1000 1050 Balance 50 1000 1050 09/09/23 09/09/23 12:15 17:31 POC Capillary Glucose 146 H 181 H Post-procedural complaints: none Patient Feedback: Patient satisfied with anesthetic care.
[2023-09-10] MEDS: SENNA/DOCUSATE SODIUM TABLET 2 TAB PO ×2 (08:57→16:36)
[2023-09-10] MEDS: GLIMEPIRIDE 1 MG TABLET PO (08:57)
[2023-09-10 08:58] VITALS: PULSE 89
[2023-09-10] MEDS: polyethylene glycoL 3350 17 GM POWD.PACK PO (08:58)
[2023-09-10] MEDS: PANTOPRAZOLE 40 MG TABLET PO (08:58)
[2023-09-10] MEDS: METOPROLOL TARTRATE 12.5 MG TABLET PO ×2 (08:58→16:37)
[2023-09-10] MEDS: ISOSORBIDE MONONITRATE 30 MG TAB.ER.24H PO (08:58)
[2023-09-10] MEDS: ATORVASTATIN 20 MG TABLET PO (08:58)
--- NOTE | 2023-09-10 09:30 | PM.PNORT ---
Progress Note: A&P Assessment and Plan (1) Distal radius fracture, left: Qualifiers: Encounter type: initial encounter Fracture type: closed Fracture morphology: other fracture Qualified Code(s): S52.592A - Other fractures of lower end of left radius, initial encounter for closed fracture Code(s): S52.502A - Unspecified fracture of the lower end of left radius, initial encounter for closed fracture Status: Acute Assessment and Plan: POD #1: ORIF LEFT DISTAL RADIAL SHAFT FRACTURE NWYaw GLYNN. PT/OT. Difficulty/slow progress. Continue pain control. Ice wrist/arm over splint. DVT prophylaxis with resumed Xarelto/Aspirin. Incentive Spirometry Use reviewed. Monitor Splint. Elevate. Ice. Bowel Regimen. Dispo: Home with Home Health vs. [facility] pending progress with PT/OT Time Spent With Patient Time: Reviewed history, exam, radiographs and current labs with attending MD and covering surgeon, Dr. Elmore, who agrees with current plan as indicated above. No further recommendations from Dr. Elmore at this time. Subjective Subjective Date/Time Seen: 09/10/23 09:30 Post Op day: 1 Interval history: POD #1: ORIF LEFT DISTAL RADIAL SHAFT FRACTURE Patient doing very well. Sitting up in bed at time of exam. Pain well controlled. Splint in place. Awaiting breakfast. No new concerns. Concerned about d/c today. Review of Systems Review of Systems: All systems reviewed & are unremarkable except as noted in HPI and below Exam Const: General: comfortable and no acute distress Resp: Effort & Inspection: normal respiratory effort Extrem: Left upper extremity: elbow/forearm (Splint in place, c/d/i ), wrist (splint in place, c/d/i ) and hand (splint in place, c/d/i, swelling of all fingers) neurosensory exam normal (sensation intact to fingers with light touch ), abnormal ROM of finger (limited due to swelling ) and ecchymosis (all fingers ) Objective Data Vital Signs Vital Signs: Vital Signs - 24 hr 09/09/23 12:00 09/09/23 17:26 09/09/23 17:40 Temperature 36.2 C L 36.5 C Pulse Rate 89 79 93 Respiratory Rate 18 16 14 Blood Pressure 103/63 156/84 H 159/68 H Pulse Oximetry 98 100 100 Oxygen Delivery Room Air Simple Face Mask Simple Face Mask Oxygen Flow Rate 8 8 09/09/23 17:55 09/09/23 18:10 09/09/23 18:25 Temperature Pulse Rate 95 95 97 Respiratory Rate 9 L 12 17 Blood Pressure 163/86 H 149/90 H 139/76 Pulse Oximetry 100 100 98 Oxygen Delivery Simple Face Mask Room Air Room Air Oxygen Flow Rate 6 09/09/23 18:40 09/09/23 20:33 09/09/23 21:41 Temperature 36.7 C Pulse Rate 102 H 96 88 Respiratory Rate 9 L 16 Blood Pressure 137/84 130/66 Pulse Oximetry 99 97 Oxygen Delivery Room Air Oxygen Flow Rate 09/10/23 00:33 09/10/23 04:33 09/10/23 08:58 Temperature 36.6 C 36.5 C Pulse Rate 88 89 89 Respiratory Rate 18 18 Blood Pressure 136/74 130/74 Pulse Oximetry 98 99 Oxygen Delivery Oxygen Flow Rate Intake/Output Intake/Output: Intake & Output 09/07/23 09/08/23 09/09/23 09/10/23 23:59 23:59 23:59 23:59 Intake Total 1050 1050 Balance 1050 1050 Meds/Results Medications: Active Medications Generic Name Dose Route Start Last Admin Trade Name Freq PRN Reason Stop Dose Admin Acetaminophen 650 mg 09/09/23 18:48 09/09/23 21:48 Acetaminophen 325 Mg Tablet PO 650 mg Q6H PRN Administration Pain Rated 1-3 Hydrocodone Bitart/Acetaminophen 1 tab 09/09/23 18:48 09/10/23 04:58 Hydrocodone/Acetaminophen (*Crx) 7.5-325 Mg Tablet PO 1 tab Q3H PRN Administration Pain Rated 4-6 Hydrocodone Bitart/Acetaminophen 2 tab 09/09/23 18:48 Hydrocodone/Acetaminophen (*Crx) 7.5-325 Mg Tablet PO Q6H PRN Pain Rated 7-10 Atorvastatin Calcium 20 mg 09/10/23 09:00 09/10/23 08:58 Atorvastatin 20 Mg Tablet PO 20 mg DAILY LUÍS Administration Diazepam 5 mg 09/09/23 18:48 Diazepam (*Crx) 5 Mg Tablet PO
[2023-09-10 14:08] VITALS: BP 116/49; PULSE 77; RESP 16; TEMP 36.2; O2SAT 98
[2023-09-10] MEDS: ASPIRIN 81 MG ENTERIC TABLET PO (14:10)
[2023-09-10 16:37] VITALS: PULSE 77
[2023-09-10] MEDS: RIVAROXABAN 20 MG TABLET PO (16:37)
[2023-09-10 17:20] LABS: Basophils Percent Auto 0.3 % (0.2-1.2); Eosinophils Absolute Auto 0.1 K/mm3 (0-0.3); Hematocrit 40.8 % (42.0-52.0); Hemoglobin 12.8 g/dL (14.0-18.0); Immature Granulocyte Absolute 0.03 K/mm3 (0.00-0.031); Immature Granulocyte Percent A 0.3 % (0-0.5); Lymphocytes Absolute Auto 2.05 K/mm3 (0.9-3.2); Lymphocytes Percent Auto 17.9 % (18.3-44.2); Mean Corpuscular HGB Conc 31.4 g/dl (32-36); Mean Corpuscular Hemoglobin 28.1 pg (26-34); Mean Corpuscular Volume 89.5 fl (80-100); Mean Platelet Volume 10.1 fl (7.4-10.4); Monocytes Absolute Auto 1.1 K/mm3 (0.1-0.6); Monocytes Percent Auto 9.6 % (2.6-8.5); Neutrophils Absolute Auto 8.1 K/mm3 (1.3-6.7); Neutrophils Percent Auto 70.9 % (45.5-73.1); Platelet Count Result 280 k/mm3 (150-375); Red Blood Count 4.56 M/mm3 (4.6-6.20); Red Cell Distribution Width 13.8 % (11.5-14.5); White Blood Count 11.5 K/mm3 (4.5-10.0)
[2023-09-10 17:37] LABS: Anion Gap 7 mmol/L (8-16); Blood Urea Nitrogen 20 mg/dL (9-20); Calcium 8.5 mg/dL (8.4-10.2); Carbon Dioxide 28 mmol/L (22-30); Chloride 99 mmol/L (98-107); Estimated CRCL calculation 79 ml/min; Estimated Glomerular Filt Rate > 60; Glucose 126 mg/dL (65-110); Potassium 4.6 mmol/L (3.4-5.0); Sodium 134 mmol/L (137-145)
[2023-09-10] MEDS: metFORMIN HCL XR 500 MG TAB.SR.24H PO (18:55)
[2023-09-10 19:52] VITALS: BP 158/75; PULSE 75; RESP 18; TEMP 35.8; O2SAT 100
--- NOTE | 2023-09-10 20:19 | PC.NURSE ---
preceptor for Callum Oconnor license pending RN, all documentation reviewed, assessments completed as charted
[2023-09-11] VITALS (9 sets, daily range): BP systolic 100–142; BP diastolic 52–70; PULSE 73–95; RESP 17–20; TEMP 36.1–36.9; O2SAT 97–99
[2023-09-11] MEDS: HYDROcodone/acetaminophen (*CRX) 7.5-325 MG TABLET 1 TAB PO ×2 (00:09→10:42)
[2023-09-11] MEDS: LORazepam (*CRX) 1 MG TABLET PO (00:09)
[2023-09-11] MEDS: ACETAMINOPHEN 325 MG TABLET 650 MG PO ×3 (06:14→23:31)
[2023-09-11] MEDS: LEVOTHYROXINE SODIUM 100 MCG TABLET PO (06:14)
[2023-09-11] MEDS: ASPIRIN 81 MG ENTERIC TABLET PO (08:13)
[2023-09-11] MEDS: SENNA/DOCUSATE SODIUM TABLET 2 TAB PO ×2 (08:13→17:01)
[2023-09-11] MEDS: ATORVASTATIN 20 MG TABLET PO (08:13)
[2023-09-11] MEDS: PANTOPRAZOLE 40 MG TABLET PO (08:14)
[2023-09-11] MEDS: ISOSORBIDE MONONITRATE 30 MG TAB.ER.24H PO (08:14)
[2023-09-11] MEDS: METOPROLOL TARTRATE 12.5 MG TABLET PO ×2 (08:14→17:01)
[2023-09-11] MEDS: GLIMEPIRIDE 1 MG TABLET PO (08:14)
[2023-09-11] MEDS: polyethylene glycoL 3350 17 GM POWD.PACK PO (08:15)
--- NOTE | 2023-09-11 09:33 | PM.PNORT ---
Progress Note: A&P Assessment and Plan (1) Distal radius fracture, left: Qualifiers: Encounter type: initial encounter Fracture type: closed Fracture morphology: other fracture Qualified Code(s): S52.592A - Other fractures of lower end of left radius, initial encounter for closed fracture Code(s): S52.502A - Unspecified fracture of the lower end of left radius, initial encounter for closed fracture Status: Acute Assessment and Plan: POD #2: ORIF LEFT DISTAL RADIAL SHAFT FRACTURE NWB GRETT[place]. PT/OT. Difficulty/slow progress. Continue pain control. Ice wrist/arm over splint. DVT prophylaxis with resumed Xarelto/Aspirin. Incentive Spirometry Use reviewed. Monitor Splint. Elevate. Ice. Bowel Regimen. Dispo: Home with Home Health vs. SNF pending progress with PT/OT Care Coordination consulted for dispo assistance. Time Spent With Patient Time: Reviewed history, exam, radiographs and current labs with attending MD and covering surgeon, Dr. Elmore, who agrees with current plan as indicated above. No further recommendations from Dr. Elmore at this time. Subjective Subjective Date/Time Seen: 09/11/23 09:33 Post Op day: 2 Interval history: POD #2: ORIF LEFT DISTAL RADIAL SHAFT FRACTURE Patient doing very well. Sitting up in bed at time of exam. Pain well controlled. Splint in place. Concerned about going home with home health to his family's house. Feels he may need more assistance and would like to go to a SNF for a couple of weeks. Review of Systems Review of Systems: All systems reviewed & are unremarkable except as noted in HPI and below Objective Data Vital Signs Vital Signs: Vital Signs - 24 hr 09/10/23 11:24 09/10/23 14:08 09/10/23 16:37 Temperature 36.2 C L Pulse Rate 77 77 Respiratory Rate 16 Blood Pressure 116/49 L Pulse Oximetry 98 Oxygen Delivery Room Air 09/10/23 19:52 09/10/23 20:00 09/11/23 00:20 Temperature 35.8 C L 36.1 C L Pulse Rate 75 86 Respiratory Rate 18 20 Blood Pressure 158/75 H 142/70 H Pulse Oximetry 100 99 Oxygen Delivery Room Air 09/11/23 04:04 09/11/23 08:14 09/11/23 08:46 Temperature 36.1 C L 36.1 C L Pulse Rate 87 94 95 Respiratory Rate 20 17 Blood Pressure 141/60 H 100/61 Pulse Oximetry 97 98 Oxygen Delivery Intake/Output Intake/Output: Intake & Output 09/08/23 09/09/23 09/10/23 09/11/23 23:59 23:59 23:59 23:59 Intake Total 1050 1820 770 Output Total 700 300 Balance 1050 1120 470 Meds/Results Medications: Active Medications Generic Name Dose Route Start Last Admin Trade Name Freq PRN Reason Stop Dose Admin Acetaminophen 650 mg 09/09/23 18:48 09/11/23 06:14 Acetaminophen 325 Mg Tablet PO 650 mg Q6H PRN Administration Pain Rated 1-3 Hydrocodone Bitart/Acetaminophen 1 tab 09/09/23 18:48 09/11/23 00:09 Hydrocodone/Acetaminophen (*Crx) 7.5-325 Mg Tablet PO 1 tab Q3H PRN Administration Pain Rated 4-6 Hydrocodone Bitart/Acetaminophen 2 tab 09/09/23 18:48 Hydrocodone/Acetaminophen (*Crx) 7.5-325 Mg Tablet PO Q6H PRN Pain Rated 7-10 Aspirin 81 mg 09/10/23 13:40 09/11/23 08:13 Aspirin 81 Mg Enteric Tablet PO 81 mg DAILY LUÍS Administration Atorvastatin Calcium 20 mg 09/10/23 09:00 09/11/23 08:13 Atorvastatin 20 Mg Tablet PO 20 mg DAILY LUÍS Administration Diazepam 5 mg 09/09/23 18:48 Diazepam (*Crx) 5 Mg Tablet PO Q8H PRN Muscle Spasm Ergocalciferol 50,000 units 09/23/23 09:00 Ergocalciferol 50,000 Units Capsule PO [id number] LUÍS Glimepiride 1 mg 09/10/23 09:00 09/11/23 08:14 Glimepiride 1 Mg Tablet PO 1 mg DAILY LUÍS Administration Isosorbide Mononitrate 30 mg 09/10/23 09:00 09/11/23 08:14 Isosorbide Mononitrate 30 Mg Tab.Er.24h PO 30 mg DAILY LUÍS Administration Levothyroxine Sodium 100 mcg 09/10/23 06:30 09/11/23 06:14 Levothyroxine Sodium 100 Mcg Tablet PO
[2023-09-11] MEDS: metFORMIN HCL XR 500 MG TAB.SR.24H PO (17:01)
[2023-09-11] MEDS: RIVAROXABAN 20 MG TABLET PO (17:01)
--- NOTE | 2023-09-11 18:10 | PC.NURSE ---
Patient unable to recall when last dose of vit. D. was taken. Unable to complete pharmacy communication at this time.
[2023-09-11] MEDS: ONDANSETRON HCL ODT 4 MG TABLET PO (20:36)
[2023-09-12] MEDS: LEVOTHYROXINE SODIUM 100 MCG TABLET PO (06:19)
[2023-09-12 09:22] VITALS: BP 124/66; PULSE 100; RESP 18; TEMP 36.7; O2SAT 98
[2023-09-12 09:23] VITALS: PULSE 100
[2023-09-12] MEDS: ATORVASTATIN 20 MG TABLET PO (09:23)
[2023-09-12] MEDS: ONDANSETRON HCL ODT 4 MG TABLET PO (09:23)
[2023-09-12] MEDS: METOPROLOL TARTRATE 12.5 MG TABLET PO (09:23)
[2023-09-12] MEDS: PANTOPRAZOLE 40 MG TABLET PO (09:23)
[2023-09-12] MEDS: GLIMEPIRIDE 1 MG TABLET PO (09:24)
[2023-09-12] MEDS: polyethylene glycoL 3350 17 GM POWD.PACK PO (09:24)
[2023-09-12] MEDS: SENNA/DOCUSATE SODIUM TABLET 2 TAB PO (09:24)
[2023-09-12] MEDS: ASPIRIN 81 MG ENTERIC TABLET PO (09:24)
[2023-09-12] MEDS: ISOSORBIDE MONONITRATE 30 MG TAB.ER.24H PO (09:24)
[2023-09-12] MEDS: BISACODYL 10 MG SUPPOSITORY RECTAL (10:39)
[2023-09-12] MEDS: ACETAMINOPHEN 325 MG TABLET 650 MG PO (12:26)
--- NOTE | 2023-09-12 14:00 | PC.NURSE ---
Patient had bowel movement prior to discharge.
--- NOTE | 2023-09-14 11:23 | PM.DS ---
DS: Admitting Diagnosis Discharge Date 09/12/23 Admitting Diagnosis ORIF Left Wrist Fracture DS: Discharge Diagnosis Discharge Diagnosis (1) Distal radius fracture, left: Qualifiers: Encounter type: initial encounter Fracture type: closed Fracture morphology: other fracture Qualified Code(s): S52.592A - Other fractures of lower end of left radius, initial encounter for closed fracture Code(s): S52.502A - Unspecified fracture of the lower end of left radius, initial encounter for closed fracture Status: Acute Assessment and Plan: POD #2: ORIF LEFT DISTAL RADIAL SHAFT FRACTURE NWB [place]. PT/OT. Difficulty/slow progress. Continue pain control. Ice wrist/arm over splint. DVT prophylaxis with resumed Xarelto/Aspirin. Incentive Spirometry Use reviewed. Monitor Splint. Elevate. Ice. Bowel Regimen. Dispo: Home with Home Health vs. SNF pending progress with PT/OT Care Coordination consulted for dispo assistance. DS: Summary Hospital Course Reason for hospitalization: ORIF Left Wrist Fracture Hospital Course: 88 year old male admitted s/p Left ORIF Wrist for postoperative medical management, pain control and mobilization with PT/OT. Patient progressed well with PT/OT. Pain and vitals remained stable throughout. The patient has been cleared to be discharged home with home health with his family at this time. He did not qualify for inpatient rehab or SNF. He decided against self pay at a SNF. His family will assist him at home with ADLs and home health will be available as well. All discharge care instructions reviewed at depth. New medications reviewed. Follow up planned for 3 weeks in the outpatient orthopedic clinic with Dr. Elmore. Dr. Elmore in agreement with safe discharge at this time. Status at Discharge Functional status at discharge: independent ambulation (FALL PRECAUTIONS ) Overall status at discharge: patient is progressing back to baseline Time Spent with Patient Time attestation: Total time spent providing and/or coordinating discharge services: Exam Const: General: comfortable and no acute distress Resp: Effort & Inspection: normal respiratory effort Extrem: Left upper extremity: elbow/forearm (Splint in place, c/d/i ), wrist (splint in place, c/d/i ) and hand (splint in place, c/d/i, swelling of all fingers) neurosensory exam normal (sensation intact to fingers with light touch ), abnormal ROM of finger (limited due to swelling ) and ecchymosis (all fingers ) Discharge Plan Discharge Attending physician on discharge: Fransico Elmore Consulting providers: Samia Hilliard; Miguel Fam; Jon Solomon; Kemal Kelley V. Patient Disposition: Home Health Service Activity: may shower, no driving and follow weight bearing status Wound Care Instructions: follow printed instructions Discharge Instructions: Orthopedic Recommendations Dr. Fransico Elmore [phone] Non-weight bearing left upper extremity. Ice. Elevate above the level of the heart. Monitor for decreased sensation in the left hand. Contact our office with questions/concerns at [phone]. Follow up appt indicated below. Care Coordination: Patient to have [facility] for PT/OT eval and treat, and mcc. They can be reached at [phone] if you have any questions; they will contact you to schedule their first visit. Patient Instructions: Antibiotic Form, Blood Thinners (GEN) Stand Alone Forms: General Discharge Information Follow-up/Referrals: Fransico Elmore MD [Physician] - 10/01/23 9:15 am Discharge Medications: New hydrocodone-acetaminophen 7.5-325 mg Tablet 1 tablet PO Q4-6H PRN (Reason: pain) Qty: 40 0RF Continued aspirin 81 mg tablet,delayed release (DR/EC) 81 mg PO DAILY ondansetron 4 mg tablet,disintegrating 4 mg PO QID PRN (Reason: nausea and vomiting) Qty: 30 2RF lorazepam 1 mg tablet 1 mg PO BID PRN (Reason: anxiety) Q
== END 2023-09-12 14:00 | disposition home health service (06) ==
PROVIDERS: Nurse Practitioner Family; Admitting Provider Orthopaedic Surgery; PCP Family Medicine Adolescent Medicine; Visit Provider Orthopaedic Surgery
PROC: (CPT 25575; principal; 2023-09-09 13:45)
DX: S52.502A Unspecified fracture of the lower end of left radius, initial encounter for closed fracture (principal); S52.612A Displaced fracture of left ulna styloid process, initial encounter for closed fracture; W19.XXXA Unspecified fall, initial encounter; I25.10 Atherosclerotic heart disease of native coronary artery without angina pectoris; Z95.1 Presence of aortocoronary bypass graft; E11.9 Type 2 diabetes mellitus without complications; E03.9 Hypothyroidism, unspecified; F10.90 Alcohol use, unspecified, uncomplicated; Z79.82 Long term (current) use of aspirin; Z86.16 Personal history of COVID-19; Z86.73 Personal history of transient ischemic attack (TIA), and cerebral infarction without residual deficits; Z87.891 Personal history of nicotine dependence; Z79.01 Long term (current) use of anticoagulants; Z79.84 Long term (current) use of oral hypoglycemic drugs; Z79.891 Long term (current) use of opiate analgesic
CPT/HCPCS: 25609; 36415; 80048; 82948; 85025; 97110; 97116; 97161; 97165; 97530; 97535; 99199; A9270; C1713; G0378; J0690; J1100; J2405; J2704; J3010; J7030; J7120

== ENCOUNTER 2023-09-24 10:22 | Outpatient (NON) | payer MEDICARE, SELFPAY ==
[2023-09-24 10:55] LABS: Appearance Urine Clear (Clear); Bilirubin Urine Negative (Negative); Blood Urine Negative (Negative); Color Urine Yellow (Yellow); Glucose Urine UA Negative (Negative); Ketones Urine Negative (Negative); Leukocyte Esterase Ur Negative LEU/UL (Negative); Nitrate Urine Negative (Negative); Protein Urine Negative (Negative)
[2023-09-24 11:06] LABS: Add Urine Microscopic? NO
== END 2023-09-24 10:23 | disposition home or self-care (01) ==
PROVIDERS: PCP Family Medicine Adolescent Medicine; Visit Provider Family Medicine Adolescent Medicine
DX: N39.0 Urinary tract infection, site not specified (principal)
CPT/HCPCS: 81003

== ENCOUNTER 2023-10-04 12:13 | Emergency (ER) | payer MEDICARE, SELFPAY ==
--- NOTE | ~2023-10-04 | CT_ITS ---
EXAMINATION: CT abdomen pelvis w con DATE: 10/04/2023 15:42 INDICATION: abd pain, constipation TECHNIQUE: Computed tomography (CT) of the abdomen and pelvis was performed with 100 mL Omnipaque-350 intravenous contrast. Automated exposure control and iterative reconstruction technique were employe d. The dose-length product was 1227.21 mGy-cm. COMPARISON: CTA 12/19/2020; x-ray abdomen 10/04/2023. FINDINGS: Motion artifact in the upper abdomen. Lower thorax: Minimal bibasilar scar/atelectasis. Abandoned epicardial pacing wires. Sternotomy wires . Liver: Normal. Biliary/Gallbladder: Gallbladder is normal. No bile duct dilation. Pancreas: No mass or duct dilation. Spleen: Stable chronic subcapsular hematoma. Adrenals:No mass. Kidneys: No suspicious mass, obstructing stone, or hydronephrosis. GI tract: Mild distal esophageal and gastric wall edema. Uncomplicated duodenal diverticulum. No smal l or large bowel dilation. Normal appendix. Diverticulosis without diverticulitis. Mesentery/Peritoneum: No ascites, mass, or free air. Retroperitoneum: No mass. Atherosclerotic abdominal aortic and/or arterial calcifications. Pelvis: Unremarkable urinary bladder. Status post prostatectomy and pelvic lymph node dissection. Soft Tissues: Soft tissues and body wall unremarkable. Bones: No acute osseous finding. IMPRESSION: Mild esophagitis/gastritis. Reviewed, dictated and finalized at location K. ACTOR AND WRINGER OPERATOR IMPRESSION: Mild esophagitis/gastritis.
--- NOTE | ~2023-10-04 | XR_ITS ---
XR abdomen/kub 1V 10/04/2023 13:37 INDICATION: Constipation TECHNIQUE: KUB COMPARISON: None FINDINGS: Bowel gas pattern is normal. There are surgical changes of the pelvis. There is no evidence of free air, mass, organomegaly, ascites or obstruction. No abnormal calculi are seen. The bones a ppear intact. Moderate lumbar spondylosis with levoscoliosis. There are residual epicardial pacing le ads. There are median sternotomy wires partially visualized. IMPRESSION: 1: No acute abdominal abnormality identified. Reviewed, dictated and finalized at location A. DROGENATION OPERATOR
[2023-10-04 12:16] VITALS: BP 101/49; PULSE 89; RESP 20; TEMP 36.6; O2SAT 98
[2023-10-04 13:11] VITALS: BP 107/62; O2SAT 96
[2023-10-04 13:12] VITALS: O2SAT 96
[2023-10-04 13:15] VITALS: O2SAT 98
[2023-10-04 13:16] VITALS: BP 101/57; O2SAT 98
[2023-10-04 13:20] VITALS: BP 101/57; PULSE 82; RESP 16
--- NOTE | 2023-10-04 13:53 | ED.GENADULT ---
HPI - General Adult General Chief complaint: Abdominal Pain Stated complaint: constipation Time Seen by Provider: 10/04/23 13:22 Source: patient Mode of arrival: ambulatory Limitations: no limitations History of Present Illness HPI narrative: This is a 88 year old male that presents to the ER for abdominal pain and constipation. Ongoing over the last couple of weeks. He has been using laxatives, stool softeners, and enemas with little relief. Reports some nausea. Denies fever, vomiting, diarrhea, or dysuria. Related Data Home Medications Medication Instructions Recorded Confirmed ergocalciferol (vitamin D2) 1,250 50,000 unit PO [id number] 11/23/20 10/02/23 mcg (50,000 unit) capsule isosorbide mononitrate 30 mg 30 mg PO DAILY 11/23/20 10/02/23 tablet,extended release 24 hr aspirin 81 mg tablet,delayed 81 mg PO DAILY 10/24/21 10/02/23 release Allergies Allergy/AdvReac Type Severity Reaction Status Date / Time No Known Allergies Allergy Verified 10/04/23 13:15 Review of Systems Review of Systems: CONSTITUTIONAL: Denies fever GASTROINTESTINAL: Reports abdominal pain, nausea. Denies vomiting, or diarrhea. GENITOURINARY: Denies dysuria or hematuria. 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 He had 2 children 1 is still living and one has . 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 Code status full code Smoking packs per day: 3 Smoking cigarettes per day: 60.0 Years smoked: 25 Smoking pack-years: 75.00 Smoking status: Former smoker Alcohol intake: current Drinks per week: 14 Alcohol use details: BEER Substance use: never Substance use type: does not use Do You Feel Safe in your Home?: Yes Lack of Transportation: No Lack of Food: Never True Current Housing: I Have Housing Concerned About Future Housing: No Difficulty Paying Gas/Electric Bills: No Difficulty Paying for Meds: No Currently Unemployed: No Education: Decline to Answer Difficulty w/ Childcare or Family Care: No Living arrangements: alone Additional living arrangements comments: GRANDDAUGHTER (DELON) TO STAY WITH PT POST OP Occupation/Education: retired Gender identity (if verbalized by the patient): Male Sexual Orientation (if Verbalized by the Patient): Straight or Heterosexual Spiritual care concerns: No Agree to blood products: Yes Exam Narrative: GENERAL: Well-appearing, well-nourished, and in no acute distress. HEAD: Normocephalic, atraumatic. EYES: EOMI. CHEST: Clear to auscultation. No respiratory distress. No wheezes rales or rhonchi HEART: Regular rate and rhythm. No murmur heard. Normal peripheral pulses. ABDOMEN: Soft, nondistended, normal active bowel sounds. Mild tenderness to palpation throughout the lower abdomen, without guarding EXTREMITIES: Normal range of motion. No edema. SKIN: Warm, dry, no rash. NEURO: No focal deficits. Alert and
[2023-10-04 14:09] LABS: Basophils Absolute Auto 0.1 K/mm3 (0.0-0.1); Basophils Percent Auto 0.5 % (0.2-1.2); Eosinophils Absolute Auto 0.3 K/mm3 (0-0.3); Eosinophils Percent Auto 3.1 % (0-4.4); Hemoglobin 12.5 g/dL (14.0-18.0); Immature Granulocyte Absolute 0.03 K/mm3 (0.00-0.031); Immature Granulocyte Percent A 0.3 % (0-0.5); Lymphocytes Absolute Auto 1.66 K/mm3 (0.9-3.2); Lymphocytes Percent Auto 15.8 % (18.3-44.2); Mean Corpuscular HGB Conc 32.1 g/dl (32-36); Mean Corpuscular Hemoglobin 28.5 pg (26-34); Mean Platelet Volume 9.9 fl (7.4-10.4); Monocytes Absolute Auto 0.8 K/mm3 (0.1-0.6); Monocytes Percent Auto 7.7 % (2.6-8.5); Neutrophils Absolute Auto 7.6 K/mm3 (1.3-6.7); Neutrophils Percent Auto 72.6 % (45.5-73.1); Platelet Count Result 236 k/mm3 (150-375); Red Blood Count 4.38 M/mm3 (4.6-6.20); Red Cell Distribution Width 14.4 % (11.5-14.5); White Blood Count 10.5 K/mm3 (4.5-10.0)
[2023-10-04 14:17] LABS: Alanine Aminotransferase 21 U/L (6-50); Albumin Level 3.7 g/dL (3.5-5.1); Alkaline Phosphatase 77 U/L (38-126); Anion Gap 6 mmol/L (8-16); Aspartate Amino Transferase 29 U/L (17-59); Blood Urea Nitrogen 22 mg/dL (9-20); Calcium 9.1 mg/dL (8.4-10.2); Carbon Dioxide 26 mmol/L (22-30); Chloride 103 mmol/L (98-107); Estimated Glomerular Filt Rate > 60; Glucose 100 mg/dL (65-110); Lipase 58 U/L (23-300); Potassium 4.3 mmol/L (3.4-5.0); Sodium 135 mmol/L (137-145)
[2023-10-04 15:27] LABS: Appearance Urine Clear (Clear); Bilirubin Urine Negative (Negative); Blood Urine Negative (Negative); Color Urine Yellow (Yellow); Glucose Urine UA Negative (Negative); Ketones Urine Trace mg/dL (Negative); Leukocyte Esterase Ur Negative LEU/UL (Negative); Nitrate Urine Negative (Negative); Protein Urine Negative (Negative); Specific Grav Ur 1.021 (1.001-1.035); pH Urine 5.5 (5.0-9.0)
[2023-10-04 15:33] LABS: Add Urine Microscopic? NO
[2023-10-04] MEDS: PANTOPRAZOLE SODIUM IV 40 MG VIAL IV PUSH (16:41)
== END 2023-10-04 18:15 | disposition home or self-care (01) ==
PROVIDERS: Emergency Provider Physician Assistant; PCP Family Medicine Adolescent Medicine
DX: K29.00 Acute gastritis without bleeding (principal); K20.90 Esophagitis, unspecified without bleeding; I25.10 Atherosclerotic heart disease of native coronary artery without angina pectoris; E11.9 Type 2 diabetes mellitus without complications; E03.9 Hypothyroidism, unspecified; Z95.1 Presence of aortocoronary bypass graft; Z86.16 Personal history of COVID-19; Z85.46 Personal history of malignant neoplasm of prostate; Z87.891 Personal history of nicotine dependence; Z86.73 Personal history of transient ischemic attack (TIA), and cerebral infarction without residual deficits; Z90.79 Acquired absence of other genital organ(s); Z79.82 Long term (current) use of aspirin; Z79.01 Long term (current) use of anticoagulants; Z79.84 Long term (current) use of oral hypoglycemic drugs
CPT/HCPCS: 36415; 74018; 74177; 80053; 81003; 83690; 85025; 96374; 99284; C9113; Q9967

== ENCOUNTER 2023-10-14 00:35 | Day surgery (SDC) | payer MEDICARE, SELFPAY ==
[2023-08-28 15:13] VITALS: BMI 30.2
--- NOTE | 2023-09-02 11:50 | PC.NURSE ---
Spoke with patient and he fell and broke his wrist in 2 places and will need to have surgery so he needs to cancel his EGD. He denies nausea at this time and appetite has improved. He is taking Pantoprazole 40mg BID as prescribed by Dr. Mendosa. He will call the office to reschedule after he is healed.
[2023-10-02 12:22] VITALS: BMI 30.2
--- NOTE | 2023-10-02 13:16 | PC.NURSE ---
Spoke with PATIENT AND SON MARTINA regarding medication XARELTO. Pt. and son verbalized understanding that the last dose of XARELTO is to be taken on 10/11/2023 and the Endoscopist will instruct them when to restart after the procedure. Pt is to remain on ASA.
--- NOTE | 2023-10-12 10:05 | SUR.PREOP ---
Patient called regarding upcoming procedure. Reviewed preop instructions, appointment times, and procedure prep.
[2023-10-14 12:39] VITALS: BP 123/65; PULSE 77; RESP 19; TEMP 36.4; O2SAT 98
[2023-10-14] MEDS: LACTATED RINGERS 1,000 ML 150 ML IV CONT (12:48)
[2023-10-14 12:53] LABS: Glucose Point of Care 99 mg/dl (65-105)
--- NOTE | 2023-10-14 13:06 | PM.HPGS ---
History of Present Illness History of Present Illness Consent: Risks, benefits, and alternatives have been discussed and questions answered. Patient agrees to proceed with procedure. Chief complaint: nausea,abnormal weight loss Narrative: Mathew Pleitez is a 88 year old male with chronic nausea, increased his protonix to twice a day but worsened constipation- he actually went to ER because of constipation, CT scan only showed mild esophagitis/gastritis, had egd about 6 years ago Review of Systems Constitutional: Constitutional: Denies headache(s) and Denies weakness Eyes: Eyes: Denies blurry vision ENT: Reports Normal hearing present, Denies headache(s) and Denies neck pain Cardiovascular: Cardiovascular: Denies chest pain and Denies dyspnea Respiratory: Respiratory: Denies dyspnea Gastrointestinal: Gastrointestinal: Reports no additional gastrointestinal complaints Genitourinary: Genitourinary: Denies dysuria Musculoskeletal: Musculoskeletal: Denies neck pain Integumentary/Breasts: Skin/Breast: Denies dry skin Neurologic: Reports Normal hearing present, Denies headache(s) and Denies weakness Psychiatric: Psychiatric: Denies anxiety Endocrine: Endocrine: Denies change in body appearance Hematologic/Lymphatic: Hematologic/Lymphatic: Denies easy bleeding Allergic/Immunologic: Allergic/Immunologic: Denies urticaria PMFSH Past Medical History Medical History CAD (coronary artery disease) COVID Diabetes mellitus History of bradycardia History of left heart catheterization History of prostate cancer History of prostate cancer 2000 Hypothyroidism Normal colonoscopy 01/25 TIA (transient ischemic attack) Surgical History Surgical History H/O prostatectomy 2000 History of cardiac catheterization History of surgery on left wrist (08/2023) ORIF left radius fx History of tonsillectomy Hx of CABG 2017 4 vessel Family History Family History Father Diabetes mellitus Heart disease Mother Diabetes mellitus Breast cancer Sibling Acute myocardial infarction Heart disease Social History Social History (Updated 10/09/23 @ 13:16 by Kiersten Carrillo CMA) Social History: He is and lives alone. He had 2 children 1 is still living and one has . 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 Code status full code Smoking packs per day: 3 Smoking cigarettes per day: 60.0 Years smoked: 25 Smoking pack-years: 75.00 Smoking status: Former smoker Alcohol intake: current Drinks per week: 2 Alcohol use details: BEER Substance use: never Substance use type: does not use Do You Feel Safe in your Home?: Yes Lack of Transportation: No Lack of Food: Never True Current Housing: I Have Housing Concerned About Future Housing: No Difficulty Paying Gas/Electric Bills: No Difficulty Paying for Meds: No Currently Unemployed: No Education: Decline to Answer Difficulty w/ Childcare or Family Care: No Living arrangements: alone Additional living arrangements comments: GRANDDAUGHTER (DELON) TO STAY WITH [facility] Occupation/Education: retired Gender identity (if verbalized by the patient): Male Sexual Orientation (if Verbalized by the Patient): Straight or Heterosexual Spiritual care concerns: No Agree to blood products: Yes Meds Home Medications and Allergies Home Medications Medication Instructions Recorded Confirmed Type ergocalciferol (vitamin D2) 1,250 50,000 unit PO [id number] 11/23/20 10/14/23 History mcg (50,000 unit) capsule isosorbide mononitrate 30 mg 30 mg PO DAILY 11/23/20 10/14/23 History tablet,extended release 24 hr aspirin 81 mg tablet,delayed 81 mg PO DAILY 10/24/21 10/14/23 History release metoprolol tartrate 25 mg tablet 12.
--- NOTE | 2023-10-14 13:17 | WPDANESEPPF ---
Anes - Initial Pre Proc Eval Procedure: Operation Date: 10/14/23 13:30 Proposed Procedures p Esophagogastroduodenoscopy - Jai Nunez MD Date/Time: 10/14/23 13:17 Surgeon: Jai Nunez MD Pre Op Diagnosis: nausea,abnormal weight loss Patient Data Age: 88 Gender: M Height: 1.83 m Weight: 96 kg Last Vital Signs Temp 97.5 F L 10/14/23 12:39 Pulse 77 10/14/23 12:39 Resp 19 10/14/23 12:39 BP 123/65 10/14/23 12:39 Pulse Ox 98 10/14/23 12:39 O2 Del Method Room Air 10/14/23 12:39 Allergies Allergy/AdvReac Type Severity Reaction Status Date / Time No Known Allergies Allergy Verified 10/14/23 12:37 Home Medications Medication Instructions Recorded Confirmed Type ergocalciferol (vitamin D2) 1,250 50,000 unit PO [id number] 11/23/20 10/14/23 History mcg (50,000 unit) capsule isosorbide mononitrate 30 mg 30 mg PO DAILY 11/23/20 10/14/23 History tablet,extended release 24 hr aspirin 81 mg tablet,delayed 81 mg PO DAILY 10/24/21 10/14/23 History release metoprolol tartrate 25 mg tablet 12.5 mg PO BID #60 tabs 09/26/22 10/14/23 Rx rivaroxaban 20 mg tablet (Xarelto) 20 mg PO DAILY #30 tabs 09/26/22 10/14/23 Rx levothyroxine 100 mcg tablet 100 mcg PO DAILY #90 tabs 12/22/22 10/14/23 Rx metformin 500 mg tablet,extended 500 mg PO DAILY #90 tabs 03/09/23 10/14/23 Rx release 24 hr glimepiride 1 mg tablet 1 mg PO DAILY #30 tabs 05/17/23 10/14/23 Rx atorvastatin 20 mg tablet 20 mg PO DAILY #90 tabs 05/27/23 10/14/23 Rx lorazepam 1 mg tablet 1 mg PO BID PRN anxiety #30 tabs 08/11/23 10/14/23 Rx ondansetron 4 mg disintegrating 4 mg PO QID PRN nausea and 08/11/23 10/14/23 Rx tablet vomiting #30 tabs tamsulosin 0.4 mg capsule 0.4 mg PO DAILY #90 caps 09/18/23 10/14/23 Rx pantoprazole 40 mg tablet,delayed 40 mg PO BID #180 tabs 09/22/23 10/14/23 Rx release Laboratory Tests 10/14/23 12:42 POC Capillary Glucose 99 mg/dl (65-105) Patient hx anesthesia problems: none Family hx anesthesia problems: none Results Review: All pre-operative results and documents have been reviewed as part of the pre-operative evaluation. [facility] Past Medical History Medical History CAD (coronary artery disease) COVID Diabetes mellitus History of bradycardia History of left heart catheterization History of prostate cancer History of prostate cancer 2000 Hypothyroidism Normal colonoscopy 01/25 TIA (transient ischemic attack) Surgical History Surgical History H/O prostatectomy 2000 History of cardiac catheterization History of surgery on left wrist (08/2023) ORIF left radius fx History of tonsillectomy Hx of CABG 2016 4 vessel Family History Family History Father Diabetes mellitus Heart disease Mother Diabetes mellitus Breast cancer Sibling Acute myocardial infarction Heart disease Social History Social History (Updated 10/09/23 @ 13:16 by Kiersten Carrillo CMA) Social History: He is and lives alone. He had 2 children 1 is still living and one has . 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 Code status full code Smoking packs per day: 3 Smoking cigarettes per day: 60.0 Years smoked: 25 Smoking pack-years: 75.00 Smoking status: Former smoker Alcohol intake: current Drinks per week: 2 Alcohol use details: BEER Substance use: never Substance use type: does not use Do You Feel Safe in your Home?: Yes Lack of Transportation: No Lack of Food: Never True Current Housing: I Have Housing Concerned About Future Housing: No Difficulty Paying Gas/Electric Bills: No Difficulty Paying for Meds: No Currently Unemployed: No Education: Decline to Answer Difficulty w/ Childcare or Family Care: No L
[2023-10-14 13:31] VITALS: BP 99/39; PULSE 49; RESP 17; O2SAT 99
[2023-10-14 13:41] VITALS: BP 91/33; PULSE 62; RESP 16; O2SAT 97
[2023-10-14 13:51] VITALS: BP 100/43; PULSE 64; RESP 19; O2SAT 97
== END 2023-10-14 14:36 | disposition home or self-care (01) ==
PROVIDERS: PCP Family Medicine Adolescent Medicine; Visit Provider Internal Medicine Gastroenterology
PROC: 0DJ08ZZ Inspection of Upper Intestinal Tract, Via Natural or Artificial Opening Endoscopic (ICD-10-PCS; CPT 43235; principal; 2023-10-14 13:30)
DX: K29.50 Unspecified chronic gastritis without bleeding (principal); I25.10 Atherosclerotic heart disease of native coronary artery without angina pectoris; Z95.1 Presence of aortocoronary bypass graft; E11.9 Type 2 diabetes mellitus without complications; E03.9 Hypothyroidism, unspecified; Z90.79 Acquired absence of other genital organ(s); Z87.891 Personal history of nicotine dependence; Z86.73 Personal history of transient ischemic attack (TIA), and cerebral infarction without residual deficits; Z85.46 Personal history of malignant neoplasm of prostate; Z86.16 Personal history of COVID-19; Z79.1 Long term (current) use of non-steroidal anti-inflammatories (NSAID); Z79.82 Long term (current) use of aspirin; Z79.01 Long term (current) use of anticoagulants; Z79.84 Long term (current) use of oral hypoglycemic drugs; Z79.899 Other long term (current) drug therapy; Z83.3 Family history of diabetes mellitus; Z82.49 Family history of ischemic heart disease and other diseases of the circulatory system
CPT/HCPCS: 43239; 82948; 88305; J2001; J2704; J7120

== ENCOUNTER 2023-10-21 07:26 | Outpatient (CLI) | payer MEDICARE, SELFPAY ==
--- NOTE | ~2023-10-21 | NM_ITS ---
EXAM: NM gastric emptying study DATE: 10/21/2023 12:56 INDICATION: Nausea. TECHNIQUE: A gastric emptying study was performed using the methodology of Hira MIRANDA, et al. J Nucl Med 2007; 48:568-572. The patient was given a meal consisting of 2 scrambled eggs labeled with 1 mCi Tc-99m sulfur colloid, 2 slices of toast, two packages of jam, and approximately 120 mL of water. Si multaneous anterior and posterior 1-min images of the abdomen were obtained with the patient supine a t multiple time points over a total period of 4 hours. The geometric mean of anterior and posterior v iews was determined, and the percentage retention was calculated for each time point. COMPARISON: CT abdomen and pelvis 10/04/2023 FINDINGS: Gastric retention of the radiotracer-labeled meal was 47%, 34%, and 7% at the 1-hour, 2-ho ur, and 4-hour time points, respectively. With this technique, apparent rapid gastric emptying is sug gested by <30% gastric retention at 1 hour. Delayed gastric emptying is defined by gastric retention of >90% at 1 hour, >60% retention at 2 hours, or >10% retention at 4 hours. IMPRESSION: 1. Normal gastric emptying. Reviewed, dictated and finalized at location A. IMPRESSION: 1. Normal gastric emptying.
== END 2023-10-21 07:27 | disposition home or self-care (01) ==
PROVIDERS: PCP Family Medicine Adolescent Medicine; Visit Provider Internal Medicine Gastroenterology
DX: R11.0 Nausea (principal)
CPT/HCPCS: 78264; A9541

== ENCOUNTER 2024-04-15 11:06 | Outpatient (CLI) | payer MEDICARE, SELFPAY ==
[2024-04-15 11:45] LABS: Alanine Aminotransferase 19 U/L (6-50); Albumin Level 3.8 g/dL (3.5-5.1); Alkaline Phosphatase 85 U/L (38-126); Anion Gap 9 mmol/L (4-12); Aspartate Amino Transferase 27 U/L (17-59); Bilirubin,Total 0.9 mg/dL (0.2-1.3); Blood Urea Nitrogen 19 mg/dL (9-20); Carbon Dioxide 28 mmol/L (22-30); Chloride 102 mmol/L (98-107); Cholesterol 114 mg/dL (0-200); Estimated Glomerular Filt Rate > 60; Glucose 127 mg/dL (65-110); HDL Direct 48 mg/dL; Potassium 4.4 mmol/L (3.4-5.0); Sodium 139 mmol/L (137-145); Triglycerides 52 mg/dL (<150)
[2024-04-15 11:57] LABS: LDL Cholesterol Direct 46 mg/dL
[2024-04-15 12:06] LABS: Hemoglobin A1C 5.7 % (<5.7)
== END 2024-04-15 11:07 | disposition home or self-care (01) ==
LOC: ANHLAB 11:11
PROVIDERS: PCP Family Medicine Adolescent Medicine; Visit Provider Family Medicine Adolescent Medicine
DX: I25.10 Atherosclerotic heart disease of native coronary artery without angina pectoris (principal); E11.9 Type 2 diabetes mellitus without complications; E78.00 Pure hypercholesterolemia, unspecified
CPT/HCPCS: 36415; 80053; 80061; 83036

== ENCOUNTER 2024-10-20 15:31 | Outpatient (CLI) | payer MEDICARE, SELFPAY ==
--- OUTSIDE RECORDS SUMMARY | 2024-10-20 17:17 | XMS_ITS | Clinical Summary ---
Author Organization [facility] Address [address] [address] Care Team Providers Care Primary Class Teacher Name Role Phone Aryan Mendosa MD Primary Care Prov ider Teresita Houston DPT Unavailable Allergies No known active allergies Medications cholecalciferol (VITAMIN D3) 1,000 unit capsule take 1 a day 0 0 5 Active levothyroxine (LEVOXYL) 100 mcg tablet TAKE ONE TABLET BY MOUTH ONCE A DAY 30 0 9 Active aspirin 81 mg tablet Take 1 tablet (81 mg total) by mouth daily Active metFORMIN (GLUCOPHAGE) 500 mg tablet Take 1 tablet (500 mg total) by mouth daily Active Accu-Chek SmartView Test Strip strip 0 Active atorvastatin (LIPITOR) 20 mg tablet Take 1 tablet (20 mg total) by mouth daily [address] (PROTONIX) 40 mg EC tablet Take 1 tablet (40 mg total) by mouth daily 2 Active ondansetron (ZOFRAN) 4 mg tablet Take 1 tablet (4 mg total) by mouth every 6 (six) hours as needed 2 Active glimepiride (AMARYL) 1 mg tablet Take 1 tablet (1 mg total) by mouth daily 3 Active ergocalciferol (VITAMIN D) 50,000 unit capsule TAKE 1 CAPSULE BY MOUTH EVERY 14 DAYS 6 capsule 3 3 Active metroNIDAZOLE (METROCREAM) 0.75 % creamIndications:Ac ne Rosacea Apply thin layer to face nightly. 45 g 11 3 Active ondansetron ODT (ZOFRAN-ODT) 4 mg disintegrating tablet DISSOLVE 1 TABLET BY MOUTH EVERY 8 HOURS NEEDED FOR NAUSEA AND VOMITING 3 Active metoprolol tartrate (LOPRESSOR) 25 mg immediate release tablet TAKE 1/2 OF A TABLET (12.5 MG TOTAL) BY MOUTH TWICE A DAY 90 tablet 3 4 Active isosorbide mononitrate ER (IMDUR) 30 mg 24 hr tablet TAKE 1 TABLET BY MOUTH EVERY DAY 90 tablet 2 4 Active rivaroxaban (Xarelto) 20 mg tablet Take 1 tablet (20 mg total) by mouth daily 90 tablet 3 4 Active Active Problems Problem Noted Date Diagnosed Date History of 2019 novel coronavirus disease (COVID -19) 10/22/2022 PSVT (paroxysmal supraventricular tachycardia) 0 10/22/2022 Frequent PVCs 04/05/2021 Osteopenia of multiple sites 11/08/2019 Overview (11/08/2019): conservative, ergo twice monthly Hx 4V CABG PAD (peripheral artery disease) ([facility]) 2017 Bradycardia 08/17/2017 Dizziness 08/17/2017 Paroxysmal atrial fibrillation 06/22/2017 Coronary artery disease of n ative artery of [place] heart with stable angina pectoris ([facility]) 06/22/2017 Hx of CABG 06/22/2017 Chronic anticoagulation 06/22/2017 Abnormal nuclear stress test 04/17/2017 Exertional chest pain 04/17/2017 LBBB (left bundle branch block) 04/17/2017 Actinic keratosis 01/15/2017 Basal cell carcinoma (BCC) of skin of nose 11/28 Keratosis, senilis 11/29/2015 Mixed diabetic hyperlipidemi a associated with type 2 diabetes mellitus ([facility]) 12/06/2013 Overview (11/13/2016): DMII WO CMP NT ST UNCNTR Skin neoplasm 10/05/2013 Hypothyroidism 06/07/2013 Overview (11/14/2016): HYPOTHYROIDISM NOS Rosacea 03/03/2011 Overview (11/19/2017): Description: Va Vitamin D deficiency disease 12/16/2010 Resolved Problems Problem Noted Date Diagnosed Date Resolved Date Chronic coronary artery disease 04/28/2017 02/24/2023 Encounters Date Type Department Care Team Description 10/17/2024 3:00 PM CDT Office Visit [address] [place] [address] Pamela Kenny MD Age-related osteoporosis without current pathological fracture (Primary Dx) 10/17/2024 2:30 PM CDT Clinical Support [address] [place] [address] Osteoporosis, unspecified osteoporosis type, unspecified pathological fracture presence (Primary Dx); Age-related osteoporosis without current pathological fracture 10/17/[address] [place] [address] Pamela Kenny MD from Last 3 Months Surgical History Surgery Date Site/Laterality Comments OTHER SURGICAL HISTORY Cancer, prostate: Radical prostatectomy TONSILLECTOMY Tonsillectomy COLONOSCOPY 02/05/2018 HEART SURGERY 05/11/2017 Bypass Surgery Medical History Medical History Date Comments Malignant neoplasm of prostate (HCC) 2000 Cancer, prostate Disorder of thyroid Thyroid dise ase Hypothyroidism Hypothyroidism Diabetes mellitus (HCC) Osteopenia of multiple sites 11/08/2019 con servative, ergo twice monthly Hx 4V CABG Constipation Angina at rest Colon polyps Family history of prostate problems Diabetes (HCC) Thyroid disease Family History Medical History Relation Name Comments No Known Problems Father Hip fracture Maternal Grandmother Breast cancer Mother Thyroid disease Other 2 Thyroid diso rder; Mom, maternal aunt ...hemithyroidectomy Thyroid disease Other 3 Family histo ry of Thyroid disease; Relation Name Status Comments Father Maternal Grandmother Mother Other 1 Alive Other 2 Other 3 Social History Tobacco Use Types Packs/Day Years Used Date Smoking Tobacco: Former Cigarettes Q uit: 06/22/1976 Smokeless Tobacco: Never Tobacco Cessation:Counseling Given: Not Answered Alcohol Use Standard Drinks/Week Comments Yes 2 (1 standard drink = 0.6 oz pur e alcohol) seldomly Sex and Gender Information Value Date Recorded Sex Assigned at Not on file Legal Sex Male 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 Gender Identity Not on file Sexual Orientation Not on file Obstetrics History Last Filed Vital Signs Vital Sign Reading Time Taken Comments Blood Pressure 137/69 05/09/2024 4:46 PM CDT Pulse 75 05/09/2024 4:46 PM CDT Temperature 37.1 C (98.8 F) 05/09/2024 4:46 PM CDT Respiratory Rate 18 05/09/2024 4:4 6 PM CDT Oxygen Saturation 97% 05/09/2024 4:4 6 PM CDT Inhaled Oxygen Concentration - - Weight 101.2 kg (223 lb 3.2 oz) 10/17/2024 2:33 PM CDT Height 180.3 cm (5' 11 ) 10/17/2024 2:3 3 PM CDT poor posture Body Mass Index 31.13 10/17/2024 2:33 PM CDT Plan of Treatment Health Maintenance Due Date Last Done Comments Albumin Creatinine Ratio, Urine 1935 Depression Screening 1935 Fall Risk Assessment 1935 Hemoglobin A1C 1935 Dilated Eye Exam 1935 Foot Exam 1935 DTaP/Tdap/Td Vaccine (1 - Tdap) 1946 Hepatitis B Screening 1953 Pneumococcal vaccine 65+ (1 of 2 - PCV) 1954 Zoster Vaccine (1 of 2) 1985 Well Visit 65+ 2000 eGFR 05/18/2018 05/18/2017, 03/2017, 05/16/2017, Additional history exists Lipid Panel 10/23/2023 10/22/2022, 11/2021, 04/05/2021, Additional history exists Influenza Vaccine (#1) 2024 05/09/2016, 2014 Procedures Procedure Name Priority Date/Time Associated Diagnosis Comments DEXA TBS AXIAL SKELETON BONE DENSITY 1 OR MORE SITES Schedule Routine, Read Routine (OP Routine) 10/17/2024 2:33 PM CDT Osteoporosis, unspecified osteoporosis type, unspecified pathological fracture presence POCT LIPID PANEL Routine 10/22/2022 3:42 PM CDT Coronary artery disease of [place] artery of [place] heart with stable angina pectoris EGFR Routine 05/18/2017 5:22 AM CDT from Last 3 Months or Most Recently Relevant to Health Maintenance Results * Dexa TBS Axial Skeleton Bone Density 1 or more sites (10/17/2024 2:33 PM CDT) Anatomical Region Laterality Modality Wrist, Body N/A Radiographic Georgie ging Narrative 10/18/2024 8:53 AM CDT Patient Name: Mathew Pleitez Date of : 1935 Date of scan: 10/17/2024 Bone mineral density was performed on a [employer] Densitometer. Based on machine cross-calibration and precision studies the least significant changes of this densitometer is 0.024 g/cm2 at the spine, 0.020 g/cm2 at the total proximal femur, and 0.014g/cm2 at the forearm. HISTORY: This is a 89 y.o. male with a history of prostate cancer, thyroid disease, and vitamin D deficiency. He reports that he quit smoking about 48 years ago. His smoking use included cigarettes. He has never used smokeless tobacco. Currently on treatment with vitamin D, anticoagulants, and thyroid hormone and current complaint of arm pain, back pain, and neck pain. INDICATIONS: History of prior wrist fracture, vitamin D deficiency, and male over age 70. FINDINGS: BONE MINERAL DENSITY OF THE LUMBAR SPINE Bone Mineral Density (BMD) of the lumbar spine was measured from L1-L3 and the average density was calculated to be 1.358 gm/cm2. This corresponds to a T-score (standard deviations from the mean of young adults) of 2.6. When compared to the previous study of 05/18/2023 there has been a 0.031 gm/cm (2.4%) increase in bone density that is considered significant. BONE MINERAL DENSITY OF THE PROXIMAL FEMUR Bone Mineral Density (BMD) of the left hip total was found to be 1.149 gm/cm2. This corresponds to a T-score standard deviations from the mean of young adults of 0.8. Femoral neck is 0.921 gm/cm2 with a T-score (standard deviations from the mean of young adults) of -0.1. When compared to the previous study of 05/18/2023 there has been a -0.029 gm/cm (-2.5%) decrease in bone density that is considered significant. SUMMARY: Bone mineral density is near the young adult normal mean with no increased risk for fracture. There is a significant increase noted in the spine and a significant decrease noted in the hip since the previous exam. L4 excluded from bone mineral density analysis of the lumbar spine due to bone density being more than 1 standard deviation discrepant relative to one adjacent vertebra. Clinical correlation is recommended. The lumbar spine Trabecular Bone Score is 1.321 which suggests normal bone microarchitecture, compared to the general population. Final decisions regarding diagnostic or therapeutic recommendations should include BMD, TBS, additional clinical risk factors as well the clinical context of the patient. Please see attached TBS results for further details. ADDITIONAL COMMENTS: Postmenopausal Women and Men Over 50: Diagnostic criteria: Osteoporosis: BMD at or below -2.5 T-score; Osteopenia (low bone mass): BMD between -1.0 and -2.5 T-score. If the patient has a history of a fragility fracture, a fracture that occurred with trauma equivalent to a fall from a standing position or less, then the diagnosis is osteoporosis regardless of bone density. The history and data sections of the bone mineral density scan were prepared by Ceci Phillips)(CBDT)who is accredited by the International Society of Clinical Densitometry. The overall patient assessment and scan interpretation were performed by Pamela Kenny M.D. who is certified by the International Society of Clinical Densitometry. [id number] us Pamela Kenny MD IM DXA PROCEDURES Final Re sult * POCT lipid panel (10/22/2022 3:42 PM CDT) [facility] Signature Cholesterol, POC <100 mg/dL Comment:GLU = 94 HDL, POC 32 mg/dL Triglycerides, POC 115 mg/dL LDL Cholesterol POC 45 mg/dL Chol/HDL Ratio, POC N/A Non-HDL Cholesterol, POC N/A mg/dL Cholesterol Total, POC <100 mg/dL Capillary blood 10/22/2022 3 :42 PM CDT us Dawson Kapoor MD POINT OF CARE TEST ORDER LARRY Final Result * eGFR (05/18/2017 5:22 AM CDT) eGFR 68 mL/min/1.7 3 m2 [facility] Comment: Interpretive Data Reference Interval Normal >/= 90 mL/min/1.73m2 Mildly decreased* 60 - 89 mL/min/1.73m2 Mildly to moderately decreased 45 - 59 mL/min/1.73m2 Moderately to severely decreased 30 - 44 mL/min/1.73m2 Severely decreased 15 - 29 mL/min/1.73m2 Kidney Failure < 15 mL/min/1.73m2 *Relative to young adult level If -[place] multiply value by 1.16. Estimated glomerular filtration rate is determined by the CKD-EPI equation recommended by the National Kidney Foundation (KDIGO 2012 Clinical Practice Guideline for the Evaluation and Management of Chronic Kidney Disease. Kidney Intnl Suppl Aug 2012;3:1). The CKD-EPI equation should not be used for patients with unstable renal function and has not been validated in children and those over 70. Current interpretive data was last reviewed 2016. Blood specimen (specimen) 05/18/2017 5:22 AM CDT 05/18/2017 5:37 AM CDT Sheila Castellon NP LAB BLOOD ORDERABLES F inal Result [facility] [id number] Department [place] [address] from Last 3 Months or Most Recently Relevant to Health Maintenance Insurance [employer] MEDICARE MEDICARE MEDICARE Care Teams Primary Class Teacher Relationship Specialty Start Date End Date Aryan Mendosa MD [address] [place] [address] PCP - General 12/05/14 Teresita Houston DPT [address] [place] [address] Physical Therapist Physical Therapy 02/05/22
--- OUTSIDE RECORDS SUMMARY | 2024-10-20 17:17 | XMS_ITS | Referral Summary ---
Author Organization [facility] Address [address] [facility] [place] [address] Care Team Providers Care Jewel Staker Name Role Phone Aryan Mendosa MD Primary Care Prov ider Teresita Houston DPT Unavailable [phone] Encounters Date Type Department Care Team Description 10/17/[address] [place] [phone] Pamela Kenny MD 10/17/2024 2:30 PM CDT Clinical Support [address] [place] [phone] Osteoporosis, unspecified osteoporosis type, unspecified pathological fracture presence (Primary Dx); Age-related osteoporosis without current pathological fracture 10/17/2024 3:00 PM CDT Office Visit [address] [phone] Pamela Kenny MD Age-related osteoporosis without current pathological fracture (Primary Dx) from Last 3 Months Allergies No known active allergies Medications cholecalciferol [...] Hx 4V CABG PAD (peripheral artery disease) (CMS/HCC) 2017 Bradycardia 08/17/2017 Dizziness 08/17/2017 Paroxysmal atrial fibrillation 06/22/2017 Coronary artery disease of n ative artery of [place] heart with stable angina pectoris ([facility]) 06/22/2017 Hx of CABG 06/22/2017 Chronic anticoagulation 06/22/2017 Abnormal nuclear stress test 04/17/2017 Exertional chest pain 04/17/2017 LBBB (left bundle branch block) 04/17/2017 Actinic keratosis 01/15/2017 Basal cell carcinoma (BCC) of skin of nose 11/28 Keratosis, senilis 11/29/2015 Mixed diabetic hyperlipidemi a associated with type 2 diabetes mellitus ([facility]) 12/06/2013 Overview (11/13/2016): DMII WO CMP NT [facility] Skin neoplasm 10/05/2013 Hypothyroidism 06/07/2013 Overview (11/14/2016): HYPOTHYROIDISM NOS Rosacea 03/03/2011 Overview (11/19/2017): Description: Rosacea Vitamin D deficiency disease 12/16/2010 Resolved Problems Problem Noted Date Diagnosed Date Resolved Date Chronic coronary artery disease 04/28/2017 02/24/2023 Social History Tobacco Use Types Packs/Day Years Used Date Smoking Tobacco: Former Cigarettes Q uit: 06/22/1976 Smokeless Tobacco: Never Tobacco Cessation:Counseling Given: Not Answered Alcohol Use Standard Drinks/Week Comments Yes 2 (1 standard drink = 0.6 oz pur e alcohol) seldomly Sex and Gender Information Value Date Recorded Sex Assigned at Not on file 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 Gender Identity Not on file Sexual Orientation Not on file Last Filed Vital Signs Vital Sign Reading Time Taken Comments Blood Pressure 137/69 05/09/2024 4:46 PM CDT Pulse 75 05/09/2024 4:46 PM CDT Temperature 37.1 C (98.8 F) 05/09/2024 4:46 PM CDT Respiratory Rate 18 05/09/2024 4:46 PM CDT Oxygen Saturation 97% 05/09/2024 4:4 6 PM CDT Inhaled Oxygen Concentration - - Weight 101.2 kg (223 lb 3.2 oz) 10/17/2024 2:33 PM CDT Height 180.3 cm (5' 11 ) 10/17/2024 2:3 3 PM CDT poor posture Body Mass Index 31.13 10/17/2024 2:33 PM CDT Plan of Treatment Not on file Procedures Procedure Name Priority Date/Time Associated Diagnosis Comments DEXA TBS AXIAL SKELETON BONE DENSITY 1 OR MORE SITES Schedule Routine, Read Routine (OP Routine) 10/17/2024 2:33 PM CDT Osteoporosis, unspecified osteoporosis type, unspecified pathological fracture presence POCT LIPID PANEL Routine 10/22/2022 3:42 PM CDT Coronary artery disease of [place] artery of [place] heart with stable angina pectoris EGFR Routine [...] Bone mineral density was performed on a [employer] Discovery Densitometer. Based on machine cross-calibration and [...] by the International Society of Clinical Densitometry. [id number] us Pamela Kenny MD IMG DXA PROCEDURES Final Re sult * POCT lipid panel (10/22/2022 3:42 PM CDT) Cholesterol, POC <100 mg/dL Comment:GLU = 94 HDL, POC 32 mg/dL Triglycerides, POC 115 mg/dL LDL Cholesterol POC 45 mg/dL Chol/HDL Ratio, POC N/A Non-HDL Cholesterol, POC N/A mg/dL Cholesterol Total, POC <100 mg/dL Capillary blood 10/22/2022 3 :42 PM CDT Dawson Kapoor MD POINT OF CARE TEST [...] mL/min/1.73m2 *Relative to young adult level If -Thai multiply value by 1.16. Estimated glomerular filtration [...] LAB BLOOD ORDERABLES F inal Result [facility] [id number] Department [place] [address] from Last 3 Months or Most Recently Relevant to Health Maintenance Insurance [employer] MEDICARE A[employer] MEDICARE A[employer] MEDICARE Care Teams Jewel Staker Relationship Specialty Start Date End Date Aryan Mendosa MD [address] [place] [address] PCP - General 12/05/14 Teresita Houston DPT [address] [place] [address] Physical Therapist Physical Therapy 02/05/22
[2024-10-20 17:47] LABS: Vitamin D 25 Hydroxy 66.9 ng/mL
== END 2024-10-20 15:32 | disposition home or self-care (01) ==
LOC: ANHLAB 15:36
PROVIDERS: PCP Family Medicine Adolescent Medicine
DX: M81.0 Age-related osteoporosis without current pathological fracture (principal)
CPT/HCPCS: 36415; 82306